=== PATIENT | male | born 1960 | race Caucasian/White ===

== ENCOUNTER 2019-03-17 11:29 | Observation (INO) ==
[2019-03-17] MEDS ORDERED: ALBUT/IPRATROP 3MG/0.5MG NEB 3 ML VIAL NEB STA ×2 (11:41→13:46)
[2019-03-17] MEDS ORDERED: SODIUM CHLORIDE 0.9% 1000ML 1,000 ML IV SCH (11:45)
[2019-03-17 12:29] LABS: Basophils # (auto) 0.01 K/uL (0-0.2); Basophils % (auto) 0.3 %; Eosinophils # (auto) 0.02 K/uL (0-0.5); Eosinophils % (auto) 0.5 %; Hematocrit (blood only) 38.4 % (42-52); Hemoglobin 12.6 g/dL (14.0-18.0); Lymphocytes # (auto) 0.48 K/uL (1.2-3.4); Lymphocytes % (auto) 12.3 %; Mean Corpuscular Hemoglobin 27.5 pg (25-34); Mean Corpuscular Hgb Conc 32.8 g/dL (32-36); Mean Corpuscular Volume 83.7 fL (80-100); Mean Platelet Volume 9.1 fL (7.4-10.4); Monocytes # (auto) 0.28 K/uL (0.11-0.59); Monocytes % (auto) 7.2 %; Neutrophils % (auto) 79.7 %; Platelet Count 144 K/uL (130-400); RDW Coefficient of Variation 14.2 % (11.5-14.5); RDW Standard Deviation 43.7 fL (36.4-46.3); Red Blood Count 4.59 M/uL (4.7-6.1); White Blood Count 3.89 K/uL (4.8-10.8)
[2019-03-17 12:31] LABS: Influenza A virus by PCR Neg for Influ A (Neg); Influenza B virus by PCR Neg for Influ B (Neg)
[2019-03-17 12:37] LABS: INR 1.2 (0.9-1.1); Prothrombin Time 12.1 Seconds (9.0-12.0)
--- NOTE | 2019-03-17 12:42 | XRay Report ---
XR chest 1V portable HISTORY: weakness COMPARISON: None. FINDINGS: The lungs are clear. Cardiac silhouette is top normal in size. No pleural effusions. No pne umothorax. Cervical spinal fusion hardware is noted. IMPRESSION: No acute process. ACT 112: Negative or not required by law. Electronically signed by: Kwesi Patel M.D. 03/17/2019 12:41 PM
[2019-03-17 12:45] LABS: Alanine Aminotransferase 12 U/L (12-78); Albumin Level 3.6 gm/dl (3.4-5.0); Aspartate Aminotransferase 18 U/L (15-37); Blood Urea Nitrogen 10 mg/dl (7-18); Calcium 9.5 mg/dl (8.5-10.1); Carbon Dioxide 24 mmol/L (21-32); Chloride 103 mmol/L (98-107); Creatinine Clr Calc Pharmacy 98.2 ml/min; Est GFR (African American) 80.6; Est GFR (Non-African American) 69.5; Glucose 99 mg/dl (70-99); Magnesium 1.8 mg/dl (1.8-2.4); Potassium 3.8 mmol/L (3.5-5.1); Sodium 135 mmol/L (136-145)
[2019-03-17 12:56] LABS: Alkaline Phosphatase 95 U/L (45-117); Bilirubin,Total 0.8 mg/dl (0.2-1); Globulin 3.8 gm/dl (2.5-4.0); Total Protein 7.4 gm/dl (6.4-8.2); Troponin I < 0.015 ng/ml (0-0.045)
[2019-03-17] MEDS ORDERED: ACETAMINOPHEN 325 MG TAB PO PRN (16:08)
[2019-03-17] MEDS ORDERED: MAGNESIUM HYDROXIDE SUSP 30 ML UDC PO PRN (16:08)
[2019-03-17] MEDS ORDERED: POLYETHYLENE (MIRALAX) 17 GM PACK PO PRN (16:08)
[2019-03-17] MEDS ORDERED: ONDANSETRON INJ 2 MG/ML 2 ML VIAL IV PRN (16:08)
[2019-03-17] MEDS ORDERED: ALUMINUM/MAGNESIUM SUSP 30 ML UDC PO PRN (16:08)
[2019-03-17] MEDS ORDERED: ZOLPIDEM TARTRATE 5 MG TAB PO PRN (16:44)
[2019-03-17] MEDS ORDERED: ACETAMINOPHEN 500 MG TAB PO PRN (16:44)
--- NOTE | 2019-03-17 17:00 | History & Physical Report ---
Date of Service March 17, 2019 Assessment & Plan (1) Weakness: (2) Acute viral bronchitis: This is a 58-year-old male who has significant PMH of HTN, HLD, hypothyroidism, GERD, depression who presents to ED secondary to cough and congestion x4 days. admit to tele xopenex QID Prednisone 40mg po daily x 5 days no clinical indication for antibiotic at this time incentive spirometry tessalon perle for cough suppression (pt states Robitussin was not helping) repeat labs in am (3) Hx of cervical spine surgery: Status post revision C2-T2 laminectomy and fusion on 01/[address] Conway at [facility] Was admitted to [facility] for subacute rehab 01/12-03/13 Home PT had been ordered for patient, but has not yet received Consult PT/OT while inpatient Continue gabapentin, PRN oxycodone (verified dose and frequency with PDMP) (4) Abrasion of head: 2/2 to inability to get up off floor supportive care, daily neosporin (5) HTN (hypertension): Blood pressure stable on low-dose lisinopril Monitor (6) HLD (hyperlipidemia): Continue statin (7) Hypothyroidism: Continue levothyroxine (8) Depression: Continue Zoloft (9) GERD (gastroesophageal reflux disease): Continue PPI, asymptomatic (10) DVT prophylaxis: SQ Lovenox Disposition: admit to telemetry, likely discharge to home when able Follow up: PCP Dr. Mcneil upon discharge Patient was seen and examined in collaboration with Dr. Hernandez, please see addendum History of Present Illness Chief Complaint: Cough and congestion x4 days. Primary Care Provider: Harrison Mcneil MD This is a 58-year-old male who has significant PMH of HTN, HLD, hypothyroidism, GERD, depression who presents to ED secondary to cough and congestion x4 days. Patient woke up this morning and when he went to get out of bed got tangled up in bed sheets and slid to the floor on his bottom. He denies lightheadedness dizziness or passing out. He did not hit his head or lose consciousness. When he got on the floor he was very weak and unable to get up. Upon trying to crawl up he did obtain rug abrasions on his forehead and right arm. He was found by his sister who had to call multiple firefighters to assist him to a chair. Because of his weakness and URI symptoms he was transferred to ED via ALS. Significantly patient has had 2 major cervical surgeries in the past few months. Initially on 12/22/2018 he underwent cervical surgery down at [facility] in [place]. There were no postop complications per patient he was discharged home. His insurance denied him rehab stay. He had home health, but did not feel this helped. Within 1 week duration of being home he had multiple falls requiring him to reinjure his neck. He then presented to [facility] where he was eventually transferred to [facility]. On 01/05/2019 he underwent a C2-T2 laminectomy, decompression and fusion by Dr. Conway. Upon discharge he was transferred to [facility] for subacute rehab. He was in subacute rehab from 01/12 until 03/13/2019. When he first arrived at [facility] he was a full Ronald lift and eventually was able to progress to ambulatory without assist. He has been home for approximately 4 days when on 03/13 he developed upper respiratory-like symptoms including sinus congestion, postnasal drip, productive cough. He complains of clear rhinorrhea and clear sputum. Over the past few days he has felt chilled but had no documented fever. Denies lightheadedness, dizziness, chest pain, palpitations, hemoptysis, nausea, vomiting, abdominal pain, change in his bowel or urinary habits. He did complain of dyspnea on exertion as well as significant wheezing. Significant wheezing is what prompted him to seek ED treatment today. He denies any underlying lung disease, asthma or COPD. "Every time I get a cold it always goes to my chest." Denies any tobacco use or smoking history. While in ED and in route to hospital he received multiple nebulizer treatments as well as IV methylprednisolone which significantly improved his symptoms. Currently he feels much improved since arrival, "but I am wiped out." When he arrived up to the floor he was able to get up from his chair and walk to the bed. He further elicits he has not slept well for the past 2 nights due to his cough. Lab work in ED revealed WBC 3.89, H&H 12.6 and 38.4, platelet count 144, INR 1.2, sodium 135, potassium 3.8, BUN 10, creatinine 1.16, TSH WNL, negative for influenza. Chest x-ray was negative for acute abnormality. Allergies Allergy/AdvReac Type Severity Reaction Status Date / Time egg Allergy Anaphylaxis Unverified 03/17/19 12:02 peanut Allergy Anaphylaxis Unverified 03/17/19 12:02 Home Medications Home Medications Medication Instructions Recorded Confirmed Type acetaminophen [Tylenol Extra 1,000 mg PO Q6H PRN 03/17/19 03/17/19 History Strength] atorvastatin 10 mg PO QAM 03/17/19 03/17/19 History ferrous sulfate 352 mg PO QAM 03/17/19 03/17/19 History folic acid 1 mg PO QAM 03/17/19 03/17/19 History gabapentin 300 mg PO TID 03/17/19 03/17/19 History levothyroxine 50 mcg PO QAM 03/17/19 03/17/19 History lisinopril 2.5 mg PO QAM 03/17/19 03/17/19 History oxycodone 5 mg PO BID PRN 03/17/19 03/17/19 History pantoprazole 20 mg PO QAM 03/17/19 03/17/19 History fcjmingrsovde-MM-ebogxztnely 30 ml PO Q8H PRN 03/17/19 03/17/19 History [Robitussin Cough and Cold CF] sertraline 50 mg PO QAM 03/17/19 03/17/19 History zolpidem [Ambien] 5 mg PO HS PRN 03/17/19 03/17/19 History Past Med/Surg History Medical History (Updated 03/17/19 @ 17:42 by Miesha Caicedo PA-C) Depression GERD (gastroesophageal reflux disease) HLD (hyperlipidemia) HTN (hypertension) Hypothyroidism Surgical History (Updated 03/17/19 @ 17:01 by Miesha Caicedo PA-C) Hx of cervical spine surgery X3 First in 2000 Second 12/22/[address] [facility] Revision 01/05/2019 at [facility] C2-T2 laminectomy and fusion Family History (Updated 03/17/19 @ 17:04 by Miesha Caicedo PA-C) Father Pancreatic cancer Mother Alcohol abuse Tobacco abuse Social History Preferred Language: Kyrgyz Communication Ability: Effective Funeral Home Manager Required: No Beliefs That Will Affect Care: None marital status: Legally Current Living Situation: Alone current occupational status: employed Other Information That Helps Us Care for You: No Feels Safe at Home: Yes Smoking Status: Never smoker Hx Alcohol Use: No Hx Substance Use: No Review of Systems Review of Systems: All systems reviewed & are unremarkable except as noted in HPI & below Physical Exam Physical Exam: Constitutional: WD/WN, tall, obese, male, vitals as above, NAD, sitting up in bed, pleasant, conversing easily Head: Normocephalic, + frontal forehead abrasion Eyes: PERRL, conjunctivae normal, anicteric sclerae ENMT: external ear and nose normal, oropharynx normal Neck: trachea midline, no thyromegaly normal visual inspection Respiratory: normal respiratory effort, lungs clear to auscultation, no wheeze, rales, rhonchi, + prolonged expiratory phase. Normal insp/exp effort, no accessory muscle use Cardiovascular: RRR, no murmur, no edema Vessels: no JVD or carotid bruit Chest: normal inspection of chest Abdomen: normal bowel sounds, soft, nontender, no hepatosplenomegaly Musculoskeletal: no cyanosis or clubbing, extremities motor strength 5/5 , cervical surgical incision well-healed, no surrounding erythema or warmth Skin: no rashes, warm and dry normal turgor, forehead abrasion, abrasion to right upper tricep area Neurologic: PERRL, EOMI, accommodation nl, no face palsy, no dysarthria CN's II-XI intact bilaterally and moves all extremities Psychiatric: A+Ox3, euthymic affect Lymphatic: no cervical or axillary lymphadenopathy : deferred Results & Data Vital Signs (Past 12 Hours) Vital Signs Temp Pulse Pulse Pulse Pulse Resp Resp 03/17/19 15:07 109 H 20 03/17/19 14:08 108 H 24 03/17/19 13:43 90 26 H 03/17/19 13:11 109 H 25 H 03/17/19 12:13 106 H 24 03/17/19 11:49 37.1 C 107 H 24 03/17/19 11:41 BP BP Pulse Ox Pulse Ox 03/17/19 15:07 116/73 94 03/17/19 14:08 93 03/17/19 13:43 84 L 03/17/19 13:11 126/86 94 03/17/19 12:13 95 03/17/19 11:49 136/85 94 03/17/19 11:41 94 Laboratory Results Short CBC 03/17/19 Range/Units 11:45 WBC 3.89 L (4.8-10.8) K/uL Hgb 12.6 L (14.0-18.0) g/dL Hct 38.4 L (42-52) % Plt Count 144 (130-400) K/uL BMP 03/17/19 11:45 Sodium 135 L Potassium 3.8 Chloride 103 Carbon Dioxide 24 BUN 10 Creatinine 1.16 Glucose 99 Calcium 9.5 Cardiac Enzymes 03/17/19 Range/Units 11:45 Troponin I < 0.015 (0-0.045) ng/ml Liver Function 03/17/19 Range/Units 11:45 Total Bilirubin 0.8 (0.2-1) mg/dl AST 18 (15-37) U/L ALT 12 (12-78) U/L Alkaline Phosphatase 95 (45-117) U/L Albumin 3.6 (3.4-5.0) gm/dl Diagnostic Findings CXR: FINDINGS: The lungs are clear. Cardiac silhouette is top normal in size. No pleural effusions. No pneumothorax. Cervical spinal fusion hardware is noted. IMPRESSION: No acute process. Medications Administered Discontinued Medications Albuterol (Duoneb) 6 ml NEB NOW STA Stop: 03/17/19 11:42 Last Admin: 03/17/19 12:11 Dose: 6 ml Documented by: [id number] Albuterol (Duoneb) 6 ml NEB NOW STA Stop: 03/17/19 13:47 Last Admin: 03/17/19 14:06 Dose: 6 ml Documented by: [id number] Sodium Chloride (Nss 1000ml) 1,000 mls @ 999 mls/hr IV .Q1H1M RACHELLE Stop: 03/17/19 12:45 Last Infusion: 03/17/19 13:58 Dose: 0 mls/hr Documented by: [id number] Admin: 03/17/19 12:04 Dose: 999 mls/hr Documented by: [id number] Methylprednisolone (Solumedrol) 40 mg IV NOW STA Stop: 03/17/19 11:57 Last Admin: 03/17/19 12:04 Dose: 40 mg Documented by: [id number] ECG Rhythm: sinus tachycardia Findings: + nonspecific-ST abn, + RBBB and + prolonged QT (508ms) Code Status & VTE Plan Code Status Full Code VTE Prophylaxis Plan VTE Prophylaxis will be ordered: Yes Supervising Physician Co-Signing Physician Notes HISTORY: Record reviewed. Patient interviewed and examined. Care coordinated with Miesha Caicedo PA-C. Please refer to her documentation for complete history. Briefly, 58-year-old male status post recent cervical decompression/fusion. Recently discharged home from skilled care. Developed cough and malaise over past 24 hours. Slid out of bed this morning and unable to get up off the floor. Suffered some abrasions from the fall, but no other apparent injuries. EXAM: General- no distress Head- abrasions forehead and face Lungs- diffuse wheezing; no respiratory distress Cardiovascular- RRR; no murmur; no gallop; no JVD; no pretibial edema Abdomen- + bowel sounds, soft, nontender Extremities- no cyanosis; no calf tenderness Neuro- alert, oriented Skin- warm & dry DATA: Hemoglobin 12.6, white count 3890, platelet count 144,000. Sodium 135, potassium 3.8, chloride 103, CO2 24, BUN 10, creatinine 1.16, glucose 99, calcium 9.5, magnesium 1.8. Troponin less than 0.015. Urinalysis showed 1+ ketones, negative nitrite, negative leukocyte esterase, 1-5 WBCs, 5-10 RBCs, 5-10 epithelial cells, no bacteria. Nasopharyngeal swab for influenza A/B negative. Other lab studies as noted. Chest x-ray did not show any infiltrates, effusions, CHF. EKG performed at 1202 reviewed and demonstrated sinus tachycardia at 103/minute, inverted T waves in lead III, incomplete right bundle branch block. ASSESSMENT AND PLAN: Fall/weakness associated with respiratory tract infection. No infiltrates on chest x-ray. Nasopharyngeal swab for influenza negative. However, will treat empirically with oseltamivir given flu season, symptoms, and possibility of a false negative assay. Status post recent cervical decompression/fusion as detailed in GARY Caicedo's note. Patient was discharged home after a stay at [facility] for rehabilitation. Will ask for new PT/OT evaluations in light of his fall. Please refer to GARY Caicedo's documentation for discussion of other issues.
--- NOTE | 2019-03-17 17:27 | Emergency Department Note ---
Entered by Coco Tan acting as a scribe for History of Present Illness General Chief complaint: Fall Time Seen by Provider: 03/17/19 11:34 Source: patient History of Present Illness Onset (ago): minute(s) (prior to arrival) Location: head and neck Pain Consistency: + other (episode) Quality: + other (fall) Associated symptoms: + denies other symptoms (hitting his head, head pain, neck pain, arm pain, abdominal pain, hip pain, leg pain), + cough, + weakness and + other (winded, abrasions to head and elbows, neck stiffness); no chest pain The patient is a 58 year old male w/ PMHx of cervical spine surgery who presents to the ED w/ CC of an episode of a fall occurring prior to arrival. 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 He states that he went to rehab after and things were going well. He states that when he finally was sent home, that first day he went to a [place] celebration with his family, but everyone was sick. He reports that he ended up getting sick and since then has been very weak. He reports that it seems to be getting worse. He states that he has a clear productive cough and feels winded easily. He notes that he has been unable to lie flat because of it. The patient states that today he went to sit on the edge of his bed, but he was out too far and his sheets were slippery. He reports that he ended up falling straight to his butt. He states that he then tried to crawl to the phone, but ended up having several abrasion on his head and arms from the crawling. The patient notes that his neck is stiff, but reports that he just had his collar removed. The patient denies hitting his head, head pain, neck pain, arm pain, chest pain, abdominal pain, hip pain, leg pain, and getting his flu shot. Home Medications Home Medications Medication Instructions Recorded Confirmed Type acetaminophen [Tylenol Extra 1,000 mg PO Q6H PRN 03/17/19 03/17/19 History Strength] atorvastatin 10 mg PO QAM 03/17/19 03/17/19 History ferrous sulfate 352 mg PO QAM 03/17/19 03/17/19 History folic acid 1 mg PO QAM 03/17/19 03/17/19 History gabapentin 300 mg PO TID 03/17/19 03/17/19 History levothyroxine 50 mcg PO QAM 03/17/19 03/17/19 History lisinopril 2.5 mg PO QAM 03/17/19 03/17/19 History oxycodone 5 mg PO BID PRN 03/17/19 03/17/19 History pantoprazole 20 mg PO QAM 03/17/19 03/17/19 History grhiwrbykytyb-PW-jrrigvoupxg 30 ml PO Q8H PRN 03/17/19 03/17/19 History [Robitussin Cough and Cold CF] sertraline 50 mg PO QAM 03/17/19 03/17/19 History zolpidem [Ambien] 5 mg PO HS PRN 03/17/19 03/17/19 History Allergies Allergy/AdvReac Type Severity Reaction Status Date / Time egg Allergy Anaphylaxis Unverified 03/17/19 12:02 peanut Allergy Anaphylaxis Unverified 03/17/19 12:02 Past Med/Surg History Medical History (Updated 03/17/19 @ 17:13 by Miesha Caicedo PA-C) Depression GERD (gastroesophageal reflux disease) HLD (hyperlipidemia) HTN (hypertension) Hypothyroidism Surgical History (Updated 03/17/19 @ 17:01 by Miesha Caicedo PA-C) Hx of cervical spine surgery X3 First in 2000 Second 12/22/2018 at [facility] Revision 01/05/2019 at [facility] C2-T2 laminectomy and fusion Family History (Updated 03/17/19 @ 17:04 by Miesha Caicedo PA-C) Father Pancreatic cancer Mother Alcohol abuse Tobacco abuse Social History Preferred Language: Faroese Communication Ability: Effective 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 and A total of 10 systems reviewed and were otherwise negative Physical Exam Vital Signs Vital Signs - 24 hr 03/17/19 11:41 03/17/19 11:49 03/17/19 12:13 Temperature 37.1 C Temperature Source Oral Pulse Rate 107 H Pulse Rate [Apical] 106 H Pulse Rate [Exercises] Pulse Rate [Finger] Pulse Rhythm [Apical] Pulse Strength [Apical] Respiratory Rate 24 24 Respiratory Rate [Exercises] Respiratory Effort / Characteristics Non-Labored Spontaneous Short of Breath Respiratory Depth Normal Respiratory Pattern Regular Blood Pressure 136/85 Blood Pressure [Right Arm] Blood Pressure Mean 102 Blood Pressure Mean [Right Arm] Blood Pressure Position [Right Arm] Pulse Oximetry 94 94 95 Pulse Oximetry [Exercises] Oxygen Delivery Method Room Air Room Air Room Air Sepsis Recent Fever Within 48 Hours Yes Sepsis New/Unexplained Change in Mental Status No Sepsis Action Taken by Nursing No Action Required 03/17/19 13:11 03/17/19 13:43 03/17/19 14:08 Temperature Temperature Source Pulse Rate Pulse Rate [Apical] 109 H Pulse Rate [Exercises] 90 Pulse Rate [Finger] 108 H Pulse Rhythm [Apical] Regular Pulse Strength [Apical] Normal Respiratory Rate 25 H 24 Respiratory Rate [Exercises] 26 H Respiratory Effort / Characteristics Non-Labored Non-Labored Spontaneous Respiratory Depth Normal Respiratory Pattern Regular Blood Pressure Blood Pressure [Right Arm] 126/86 Blood Pressure Mean Blood Pressure Mean [Right Arm] 99 Blood Pressure Position [Right Arm] Lying Pulse Oximetry 94 93 Pulse Oximetry [Exercises] 84 L Oxygen Delivery Method Room Air Room Air Room Air Sepsis Recent Fever Within 48 Hours Sepsis New/Unexplained Change in Mental Status Sepsis Action Taken by Nursing GENERAL: Non-toxic, abrasion to top of head HEAD: Abrasion to the top of the head. EYE EXAM: Normal conjunctiva. PERRL, no anisocoria and EOM's grossly intact w/o pain. OROPHARYNX: Moist mucous membranes. Grossly normal dentition. NECK: Supple, no nuchal rigidity, no adenopathy, non-tender. No signs of meningismus. Well healed surgical incision over the cervical and upper thoracic spine. LUNGS: Diffuse wheezing. Normal chest wall mechanics. HEART: Tachycardic and regular, no MRG. ABDOMEN: Abdomen soft, non-tender, normo-active bowel sounds, no masses, no rebound or guarding. BACK: No CVA TTP. SKIN: No rashes and no bruising. UPPER EXTREMITIES: Upper extremities are grossly normal. Abrasion over the lateral upper portion of the right arm. Compartment soft. No TTP to bilateral upper extremities. LOWER EXTREMITIES: No pitting edema. No calf pain. No TTP to bilateral lower extremities. NEURO EXAM: A&O x3, cranial nerves II-XII grossly intact, normal speech, moves all 4 extremities on command w/o issue. Course Course 1135: The patient was evaluated in room C10. A complete history and physical exam was performed. 1137: Orders were placed and the patient was started on a monitoring and evaluation advisor at this time. 1325: I reevaluated the patient and his lungs sound slightly better, but he is still wheezy. We are going to do an ambulatory trial. 1346: Nursing called and said that when he walked, he dropped to 84%. 1358: I reevaluated the patient and updated him and his sister on his test results. I discussed the treatment plan with them. They verbally agree and understand. 1415: I discussed the patient's case with Dr. Mary Jo Alcala Hospitalist. He will evaluate the patient for further management. Administered Medications Discontinued Medications Albuterol (Duoneb) 6 ml NEB NOW STA Stop: 03/17/19 11:42 Last Admin: 03/17/19 12:11 Dose: 6 ml Documented by: [id number] Albuterol (Duoneb) 6 ml NEB NOW STA Stop: 03/17/19 13:47 Last Admin: 03/17/19 14:06 Dose: 6 ml Documented by: [id number] Sodium Chloride (Nss 1000ml) 1,000 mls @ 999 mls/hr IV .Q1H1M RACHELLE Stop: 03/17/19 12:45 Last Infusion: 03/17/19 13:58 Dose: 0 mls/hr Documented by: [id number] Admin: 03/17/19 12:04 Dose: 999 mls/hr Documented by: [id number] Methylprednisolone (Solumedrol) 40 mg IV NOW STA Stop: 03/17/19 11:57 Last Admin: 03/17/19 12:04 Dose: 40 mg Documented by: [id number] Medical Decision Making Differential Diagnosis Differential Diagnosis includes but is not limited to dehydration, stroke, anemia, hypoglycemia, hyponatremia, hypernatremia, urinary tract infection, pneumonia, bronchitis, sepsis, gastroenteritis, additional abdominal pathology, metabolic abnormalities and infections. Medical Records Attestation: I reviewed the patient's medical records. Home Medications Current Medication List: was personally reviewed by me Laboratory Data Attestation: I reviewed the patient's lab results. Result diagrams: 03/17/19 11:45 03/17/19 11:45 Lab Results 03/17/19 03/17/19 03/17/19 Range/Units 11:45 11:45 11:45 WBC 3.89 L (4.8-10.8) K/uL RBC 4.59 L (4.7-6.1) M/uL Hgb 12.6 L (14.0-18.0) g/dL Hct 38.4 L (42-52) % MCV 83.7 (80-100) fL MCH 27.5 (25-34) pg MCHC 32.8 (32-36) g/dL RDW Std Deviation 43.7 (36.4-46.3) fL RDW Coeff of Kamaljit 14.2 (11.5-14.5) % Plt Count 144 (130-400) K/uL MPV 9.1 (7.4-10.4) fL Immature Gran % (Auto) 0.0 % Neut % (Auto) 79.7 % Lymph % (Auto) 12.3 % Brown % (Auto) 7.2 % Eos % (Auto) 0.5 % Baso % (Auto) 0.3 % Immature Gran # (Auto) 0.00 (0.00-0.02) K/uL Neut # (Auto) 3.10 (1.4-6.5) K/uL Lymph # (Auto) 0.48 L (1.2-3.4) K/uL Brown # (Auto) 0.28 (0.11-0.59) K/uL Eos # (Auto) 0.02 (0-0.5) K/uL Baso # (Auto) 0.01 (0-0.2) K/uL PT 12.1 H (9.0-12.0) Seconds INR 1.2 H (0.9-1.1) Sodium 135 L (136-145) mmol/L Potassium 3.8 (3.5-5.1) mmol/L Chloride 103 (98-107) mmol/L Carbon Dioxide 24 (21-32) mmol/L Anion Gap 8.0 (3-11) BUN 10 (7-18) mg/dl Creatinine 1.16 (0.6-1.4) mg/dl Est Cr Clr Drug Dosing 98.2 ml/min Est GFR ( Amer) 80.6 Est GFR (Non-Af Amer) 69.5 BUN/Creatinine Ratio 9.0 L (10-20) Glucose 99 (70-99) mg/dl Calcium 9.5 (8.5-10.1) mg/dl Magnesium 1.8 (1.8-2.4) mg/dl Total Bilirubin 0.8 (0.2-1) mg/dl AST 18 (15-37) U/L ALT 12 (12-78) U/L Alkaline Phosphatase 95 (45-117) U/L Troponin I < 0.015 (0-0.045) ng/ml Total Protein 7.4 (6.4-8.2) gm/dl Albumin 3.6 (3.4-5.0) gm/dl Globulin 3.8 (2.5-4.0) gm/dl Albumin/Globulin Ratio 1.0 (0.9-2) TSH 1.860 (0.300-4.500) uIu/ml Influenza Type A (PCR) (Neg) Influenza Type B (PCR) (Neg) 03/17/19 Range/Units 11:45 WBC (4.8-10.8) K/uL RBC (4.7-6.1) M/uL Hgb (14.0-18.0) g/dL Hct (42-52) % MCV (80-100) fL MCH (25-34) pg MCHC (32-36) g/dL RDW Std Deviation (36.4-46.3) fL RDW Coeff of Kamaljit (11.5-14.5) % Plt Count (130-400) K/uL MPV (7.4-10.4) fL Immature Gran % (Auto) % Neut % (Auto) % Lymph % (Auto) % Brown % (Auto) % Eos % (Auto) % Baso % (Auto) % Immature Gran # (Auto) (0.00-0.02) K/uL Neut # (Auto) (1.4-6.5) K/uL Lymph # (Auto) (1.2-3.4) K/uL Brown # (Auto) (0.11-0.59) K/uL Eos # (Auto) (0-0.5) K/uL Baso # (Auto) (0-0.2) K/uL PT (9.0-12.0) Seconds INR (0.9-1.1) Sodium (136-145) mmol/L Potassium (3.5-5.1) mmol/L Chloride (98-107) mmol/L Carbon Dioxide (21-32) mmol/L Anion Gap (3-11) BUN (7-18) mg/dl Creatinine (0.6-1.4) mg/dl Est Cr Clr Drug Dosing ml/min Est GFR ( Amer) Est GFR (Non-Af Amer) BUN/Creatinine Ratio (10-20) Glucose (70-99) mg/dl Calcium (8.5-10.1) mg/dl Magnesium (1.8-2.4) mg/dl Total Bilirubin (0.2-1) mg/dl AST (15-37) U/L ALT (12-78) U/L Alkaline Phosphatase (45-117) U/L Troponin I (0-0.045) ng/ml Total Protein (6.4-8.2) gm/dl Albumin (3.4-5.0) gm/dl Globulin (2.5-4.0) gm/dl Albumin/Globulin Ratio (0.9-2) TSH (0.300-4.500) uIu/ml Influenza Type A (PCR) Neg for Influ A (Neg) Influenza Type B (PCR) Neg for Influ B (Neg) Imaging Data Radiologist's Impression: Radiology results as stated below per my review and the radiologist's interpretation: XR chest 1V portable HISTORY: weakness COMPARISON: None. FINDINGS: The lungs are clear. Cardiac silhouette is top normal in size. No pleural effusions. No pneumothorax. Cervical spinal fusion hardware is noted. IMPRESSION: No acute process. ACT 112: Negative or not required by law. Electronically signed by: Kwesi Patel M.D. 03/17/2019 12:41 PM ECG Data Attestation: I personally reviewed and interpreted this ECG as follows: Indication: + tachycardia Rate (beats per minute): 103 Rhythm: + sinus tachycardia ECG Intervals/blocks: + Normal QRS and + Normal NH ECG [place]: + Normal ECG ST segments: + ST depression (V2 and V3) ECG Findings: + Other (prolonged QT-c) Comparison ECG Date: no prior available Blood Pressure Blood Pressure Findings: Elevated blood pressure Blood Pressure Disposition: Referred to patients primary care provider MDM Narrative The patient is a 58 year old male w/ PMHx of cervical spine surgery who presents to the ED w/ CC of an episode of a fall occurring prior to arrival. Patient was seen and evaluated the bedside. The patient does present with concern for weakness and a fall. The patient states he just slipped down from the side of the bed. Did not strike his head. The patient is a prior history of cervical stenosis status post procedure approximately 8 weeks ago. This com proctor [facility]. No neck pain from the fall and the patient surgical incisional site is well-healed. Patient was at [facility] for an extended period of time and was just discharged on Tuesday. The patient does have some coarse breath sounds throughout. Non-smoker. Patient did a blood work completed along with a chest x-ray. Chest x-ray is unremarkable. I did have the patient ambulate and the patient was hypoxic. Patient was given additional DuoNeb treatments as he may have some form of reactive airway disease and does seem more viral nature. I did consider the possibility of PE but the patient does not have any lower extremity swelling or calf pain the patient does relate a more infectious etiology with coarse breath sounds throughout. I did discuss this with the on-call hospitalist agreed to further evaluate treat the patient. Patient was given strict follow-up, discharge, and return precautions. All questions were answered. Patient was deemed suitable for outpatient follow-up at this time. Patient agreed with the plan of care and was safely discharged home. Impression & Plan Hypoxia, Bronchitis, RAD (reactive airway disease), Weakness, Leukopenia Discharge Plan Visit Data *Final* Discharge Date/Time: 03/17/19 15:18 Chief Complaint: Fall ED Provider: Earl Chang Discharge Problem: Hypoxia, Bronchitis, RAD (reactive airway disease), Weakness, Leukopenia Patient Disposition: Admitted As Inpatient Discharge Instructions Interventions: ED Discharge Assessment Last Done: 03/17/19 15:18 Discharge Problem: RAD (reactive airway disease) Qualifiers: Asthma severity: unspecified severity Asthma persistence: unspecified Asthma complication type: uncomplicated Qualified Code(s): J45.909 - Unspecified asthma, uncomplicated Leukopenia Qualifiers: Leukopenia type: unspecified Qualified Code(s): D72.819 - Decreased white blood cell count, unspecified The scribe's documentation has been prepared under my direction and personally reviewed by me in its entirety. I confirm that the note above accurately reflects all work, treatment, procedures, and medical decision making performed by me.
[2019-03-17 17:48] LABS: Appearance Urine Clear (Clear); Bacteria Urine Automated Negative (Negative); Bilirubin Urine Negative (Negative); Blood Urine Negative (Negative); Color Urine Dark Yellow; Glucose Urine UA Negative (Negative); Ketones Urine 1+ (Negative); Leukocyte Esterase Urine Negative (Negative); Nitrite Urine Negative (Negative); Protein Urine Trace (Negative); Specific Gravity Urine 1.024 (1.000-1.030); Urobilinogen Urine Negative (Negative)
[2019-03-17] MEDS: LEVALBUTEROL HCL 0.63 MG/3 ML NEB NEB SCH (19:28)
[2019-03-17] MEDS: GUAIFENESIN/DEXTROM SYRUP 100MG/10MG 5ML UDC PO PRN (20:02)
[2019-03-17] MEDS: NEOMYCIN/POLYMYX/BACITR OINT 15 GM TUBE EXT SCH (20:02)
[2019-03-17] MEDS: OXYCODONE HCL IR 5 MG TAB (IMMEDIATE RELEASE) PO PRN (20:51)
[2019-03-17] MEDS: OSELTAMIVIR PHOSPHATE 75 MG CAP PO SCH (20:52)
[2019-03-17] MEDS: GABAPENTIN 300 MG CAP PO SCH (20:52)
[2019-03-18] MEDS: LEVALBUTEROL HCL 0.63 MG/3 ML NEB NEB SCH ×4 (01:29→19:05)
[2019-03-18] MEDS: GUAIFENESIN/DEXTROM SYRUP 100MG/10MG 5ML UDC PO PRN ×3 (04:21→19:07)
--- NOTE | 2019-03-18 06:00 | Electrocardiogram Report ---
Test Reason : Blood Pressure : / mmHG Vent. Rate : 103 BPM Atrial Rate : 103 BPM P-R Int : 144 ms QRS Dur : 098 ms QT Int : 388 ms P-R-T Axes : 060 043 012 degrees QTc Int : 508 ms Sinus tachycardia Incomplete right bundle branch block Nonspecific ST and T wave abnormality Prolonged QT Abnormal ECG No previous ECGs available Confirmed by Abhinav Zamudio ([id number]) on 03/18/2019 5:59:48 AM Referred By: REFERRED SELF Confirmed By:Abhinav Zamudio
[2019-03-18 06:30] LABS: Hemoglobin 11.3 g/dL (14.0-18.0); Mean Corpuscular Hemoglobin 27.3 pg (25-34); Mean Corpuscular Hgb Conc 33.2 g/dL (32-36); Mean Corpuscular Volume 82.1 fL (80-100); Platelet Count 131 K/uL (130-400); RDW Coefficient of Variation 14.3 % (11.5-14.5); Red Blood Count 4.14 M/uL (4.7-6.1); White Blood Count 3.34 K/uL (4.8-10.8)
[2019-03-18 07:10] LABS: BUN Creatinine Ratio 14.1 (10-20); Calcium 9.3 mg/dl (8.5-10.1); Est GFR (African American) 106.6; Potassium 3.8 mmol/L (3.5-5.1)
[2019-03-18] MEDS: GABAPENTIN 300 MG CAP PO SCH ×3 (08:25→19:35)
[2019-03-18] MEDS: LEVOTHYROXINE SODIUM 50 MCG TABLET PO SCH (08:25)
[2019-03-18] MEDS: OSELTAMIVIR PHOSPHATE 75 MG CAP PO SCH ×2 (08:27→19:35)
[2019-03-18] MEDS: FERROUS SULFATE 325 MG TAB PO SCH (08:29)
[2019-03-18] MEDS: predniSONE 20 MG TAB PO SCH (08:29)
[2019-03-18] MEDS: ENOXAPARIN INJ 40 MG/0.4 ML SYR SQ SCH (08:30)
[2019-03-18] MEDS: FOLIC ACID 1 MG TAB PO SCH (08:30)
[2019-03-18] MEDS: ATORVASTATIN 10 MG TAB PO SCH (08:30)
[2019-03-18] MEDS: PANTOprazole 40 MG TAB PO SCH (08:30)
[2019-03-18] MEDS: NEOMYCIN/POLYMYX/BACITR OINT 15 GM TUBE EXT SCH (08:31)
[2019-03-18] MEDS: SERTRALINE HCL 50 MG TABLET PO SCH (08:32)
--- NOTE | 2019-03-18 14:20 | Hospitalist Progress Note ---
Date of Service March 18, 2019 Assessment & Plan (1) Weakness: Likely secondary to ongoing viral illness (2) Acute viral bronchitis: Tamiflu was given and will be continued for 5 days even though flu test was negative This is a 58-year-old male who has significant PMH of HTN, HLD, hypothyroidism, GERD, depression who presents to ED secondary to cough and congestion x4 days. xopenex QID Prednisone 40mg po daily x 5 days no clinical indication for antibiotic at this time incentive spirometry Tessalon perle for cough suppression (pt states Robitussin was not helping) Clinically a lot better today and has had physical therapy No more desaturation and shortness of breath is much improved Likely be discharged tomorrow following 2 steps O2 saturation test and physical therapy (3) Hx of cervical spine surgery: Status post revision C2-T2 laminectomy and fusion on 01/[address] Conway at [facility] Was admitted to [facility] for subacute rehab 01/12-03/13 Home PT had been ordered for patient, but has not yet received Consult PT/OT while inpatient Continue gabapentin, PRN oxycodone (verified dose and frequency with PDMP) No acute pain (4) Abrasion of head: 2/2 to inability to get up off floor supportive care, daily neosporin (5) HTN (hypertension): Blood pressure stable on low-dose lisinopril Monitor (6) HLD (hyperlipidemia): Continue statin (7) Hypothyroidism: Continue levothyroxine (8) Depression: Continue Zoloft (9) GERD (gastroesophageal reflux disease): Continue PPI, asymptomatic (10) DVT prophylaxis: SQ Lovenox Disposition: admit to telemetry, likely discharge to home when able Follow up: PCP Dr. Mcneil upon discharge Subjective 03/18/2019 The patient was seen and examined in medical floor He was admitted with upper respiratory infection likely secondary to virus with a history of fall He has been complaining of URI symptoms since 13 March He was noted to have significant desaturation with ambulation in the emergency room associated with wheezing and shortness of breath He is getting empiric treatment with Tamiflu and has been getting better Review of Systems Review of Systems: All systems reviewed and are unremarkable except as noted below Respiratory: + cough, + dyspnea on exertion and + wheezing Physical Exam Physical Exam: Sitting on a chair without any acute symptoms Constitutional: well developed, well nourished and + obese Eyes: PERRL, conjunctivae normal, anicteric sclerae ENMT: external ear and nose normal, oropharynx normal Neck: trachea midline, no thyromegaly Respiratory: + respiratory distress (Area minimal) Auscultation: + wheezes (Minimal allover); no crackles Cardiovascular: Rate/Rhythm: regular rate and regular rhythm Heart Sounds: no murmur Gastrointestinal (Abdomen): Inspection/Auscultation: abdomen normal to inspection and normal bowel sounds Musculoskeletal: No acute arthritis Skin: Small abrasion at the 4 8 seems to be stable Neurologic: moves all extremities; no focal motor deficits Lymphatic: no cervical or axillary lymphadenopathy Results & Data Vital Signs (Past 12 Hours) Vital Signs Temp Pulse Pulse Resp BP Pulse Ox 03/18/19 13:19 73 14 95 03/18/19 11:55 36.6 C 70 18 144/91 H 91 03/18/19 07:43 81 03/18/19 07:31 76 16 96 03/18/19 07:19 36.8 C 66 18 135/88 94 03/18/19 04:00 90 Laboratory Results Short CBC 03/18/19 Range/Units 06:06 WBC 3.34 L (4.8-10.8) K/uL Hgb 11.3 L (14.0-18.0) g/dL Hct 34.0 L (42-52) % Plt Count 131 (130-400) K/uL BMP 03/18/19 06:06 Sodium 135 L Potassium 3.8 Chloride 106 Carbon Dioxide 23 BUN 13 Creatinine 0.92 Glucose 111 H Calcium 9.3 Urine 03/17/19 Range/Units 17:28 Urine Color Dark Yellow Urine Appearance Clear (Clear) Urine pH 6.0 (4.5-7.5) Ur Specific [place] 1.024 (1.000-1.030) Urine Protein Trace H (Negative) Urine Glucose (UA) Negative (Negative) Medications Administered Current Inpatient Medications Acetaminophen (Tylenol) 650 mg PO Q4H PRN PRN Reason: Pain or Fever Stop: 04/16/19 16:07 Acetaminophen (Tylenol) 1,000 mg PO Q6H PRN PRN Reason: Pain Stop: 04/16/19 16:43 Al Hydrox/Mg Hydrox/Simethicone (Maalox) 15 ml PO Q4H PRN PRN Reason: Dyspepsia Stop: 04/16/19 16:07 Atorvastatin Calcium (Lipitor) [facility] Stop: 04/17/19 08:59 Last Admin: 03/18/19 08:30 Dose: 10 mg Documented by: Enoxaparin Sodium (Lovenox) 40 [facility] SQ [facility] Stop: 04/17/19 08:59 Last Admin: 03/18/19 08:30 Dose: 40 mg Documented by: Ferrous Sulfate (Feosol) 325 [facility] Stop: 04/17/19 08:59 Last Admin: 03/18/19 08:29 Dose: 325 mg Documented by: Folic Acid (Folvite) 1 [facility] Stop: 04/17/19 08:59 Last Admin: 03/18/19 08:30 Dose: 1 mg Documented by: Gabapentin (Neurontin) 300 mg PO TID [facility] Stop: 04/16/19 20:59 Last Admin: 03/18/19 08:25 Dose: 300 mg Documented by: Guaifenesin/Dextromethorphan (Robitussin Cough-Chest Dm) 5 ml PO Q6H PRN PRN Reason: Cough Stop: 04/16/19 16:52 Last Admin: 03/18/19 13:01 Dose: 5 ml Documented by: Levalbuterol HCl (Xopenex 0.63 Mg/3 Ml Neb) 0.63 mg NEB Q6R [facility] Stop: 04/16/19 18:59 Last Admin: 03/18/19 13:19 Dose: 0.63 mg Documented by: Levothyroxine Sodium (Synthroid) 50 mcg PO DAILYBB [facility] Stop: 04/17/19 06:29 Last Admin: 03/18/19 08:25 Dose: 50 mcg Documented by: Lisinopril (Zestril) 2.5 mg PO QAM [facility] Stop: 04/17/19 08:59 Last Admin: 03/18/19 08:29 Dose: 2.5 mg Documented by: Magnesium Hydroxide (Milk Of Magnesia) 30 ml PO Q12H PRN PRN Reason: Constipation Stop: 04/16/19 16:07 Neomycin/Polymyxin/Bacitracin (Neosporin Oint) 1 appln EXT DAILY [facility] Stop: 04/16/19 17:14 Last Admin: 03/18/19 08:31 Dose: 1 appln Documented by: Oseltamivir Phosphate (Tamiflu) 75 mg PO BID [facility]; Protocol Stop: 03/22/19 20:59 Last Admin: 03/18/19 08:27 Dose: 75 mg Documented by: Oxycodone HCl (Roxicodone Immediate Rel) 5 mg PO BID PRN PRN Reason: Pain Stop: 03/31/19 17:16 Last Admin: 03/17/19 20:51 Dose: 5 mg Documented by: Pantoprazole Sodium (Protonix) [facility] Stop: 04/17/19 08:59 Last Admin: 03/18/19 08:30 Dose: 40 mg Documented by: Polyethylene Glycol (Miralax Powder Packet) 17 gm PO DAILY PRN PRN Reason: Constipation Stop: 04/16/19 16:07 Prednisone (Prednisone) 40 mg PO DAILY [facility] Stop: 04/17/19 08:59 Last Admin: 03/18/19 08:29 Dose: 40 mg Documented by: Sertraline HCl (Zoloft) 50 mg PO QAM [facility] Stop: 04/17/19 08:59 Last Admin: 03/18/19 08:32 Dose: 50 mg Documented by: Zolpidem Tartrate (Ambien) 5 mg PO HS PRN PRN Reason: Insomnia Stop: 04/16/19 16:43
[2019-03-18] MEDS: OXYCODONE HCL IR 5 MG TAB (IMMEDIATE RELEASE) PO PRN (19:32)
[2019-03-19] MEDS: LEVALBUTEROL HCL 0.63 MG/3 ML NEB NEB SCH ×4 (00:45→19:40)
[2019-03-19] MEDS: LEVOTHYROXINE SODIUM 50 MCG TABLET PO SCH ×2 (06:07→07:55)
[2019-03-19 07:17] LABS: Eosinophils # (auto) 0.04 K/uL (0-0.5); Eosinophils % (auto) 0.9 %; Hematocrit (blood only) 40.2 % (42-52); Hemoglobin 13.1 g/dL (14.0-18.0); Lymphocytes # (auto) 1.43 K/uL (1.2-3.4); Lymphocytes % (auto) 32.8 %; Mean Corpuscular Hemoglobin 27.3 pg (25-34); Mean Corpuscular Hgb Conc 32.6 g/dL (32-36); Mean Corpuscular Volume 83.9 fL (80-100); Mean Platelet Volume 8.9 fL (7.4-10.4); Monocytes # (auto) 0.32 K/uL (0.11-0.59); Monocytes % (auto) 7.3 %; Neutrophils # (auto) 2.57 K/uL (1.4-6.5); Platelet Count 147 K/uL (130-400); RDW Coefficient of Variation 14.2 % (11.5-14.5); RDW Standard Deviation 43.9 fL (36.4-46.3); Red Blood Count 4.79 M/uL (4.7-6.1); White Blood Count 4.36 K/uL (4.8-10.8)
[2019-03-19 07:50] LABS: BUN Creatinine Ratio 17.5 (10-20); Calcium 9.1 mg/dl (8.5-10.1); Creatinine Clr Calc Pharmacy 91.5 ml/min; Est GFR (African American) 75.8; Est GFR (Non-African American) 65.4; Potassium 3.3 mmol/L (3.5-5.1)
[2019-03-19] MEDS: NEOMYCIN/POLYMYX/BACITR OINT 15 GM TUBE EXT SCH (07:54)
[2019-03-19] MEDS: GUAIFENESIN/DEXTROM SYRUP 100MG/10MG 5ML UDC PO PRN (07:54)
[2019-03-19] MEDS: OSELTAMIVIR PHOSPHATE 75 MG CAP PO SCH ×2 (07:54→20:56)
[2019-03-19] MEDS: ATORVASTATIN 10 MG TAB PO SCH (07:54)
[2019-03-19] MEDS: predniSONE 20 MG TAB PO SCH (07:55)
[2019-03-19] MEDS: GABAPENTIN 300 MG CAP PO SCH ×3 (07:55→20:57)
[2019-03-19] MEDS: PANTOprazole 40 MG TAB PO SCH (07:56)
[2019-03-19] MEDS: ENOXAPARIN INJ 40 MG/0.4 ML SYR SQ SCH (07:56)
[2019-03-19] MEDS: FOLIC ACID 1 MG TAB PO SCH (07:56)
[2019-03-19] MEDS: SERTRALINE HCL 50 MG TABLET PO SCH (07:56)
[2019-03-19] MEDS: FERROUS SULFATE 325 MG TAB PO SCH (07:56)
--- NOTE | 2019-03-19 08:22 | XRay Report ---
XR chest 2V PA/lateral CLINICAL HISTORY: 58 years-old Male presenting with bronchitis,R/O Pneumonia. TECHNIQUE: PA and lateral views of the chest were obtained. COMPARISON: 03/17/2019. FINDINGS: Cardiac silhouette borderline enlarged. No focal opacity. No significant pleural effusion or pneumoth orax. Degenerative changes of the thoracic spine. Anterior and posterior cervical fusion. Upper abdom en normal. IMPRESSION: 1. No acute cardiopulmonary disease. ACT 112: Negative or not required by law. Electronically signed by: Niels Christopher M.D. 03/19/2019 8:21 AM
--- NOTE | 2019-03-19 09:33 | Hospitalist Progress Note ---
Date of Service March 19, 2019 Assessment & Plan (1) Acute viral bronchitis: This is a 58-year-old male who has significant PMH of HTN, HLD, hypothyroidism, GERD, depression who presents to ED secondary to cough and congestion x4 days. 2/2 to viral bronchitis continue empiric tamiflu for 5 day course xopenex QID Prednisone 40mg po daily x 5 days no clinical indication for antibiotic at this time incentive spirometry Tessalon perle for cough suppression (pt states Robitussin was not helping) Much improved, still with expiratory wheezing but anticipate this will improve On room air awaiting PT assessment and O2 2 step (2) Weakness: Likely secondary to ongoing viral illness much improved (3) Hx of cervical spine surgery: Status post revision C2-T2 laminectomy and fusion on 01/[address] Conway at [facility] Was admitted to [facility] for subacute rehab 01/12-03/13 Home PT had been ordered for patient, but has not yet received Continue gabapentin, PRN oxycodone (verified dose and frequency with PDMP) No acute pain (4) Abrasion of head: 2/2 to inability to get up off floor supportive care, daily neosporin (5) HTN (hypertension): Blood pressure stable on low-dose lisinopril Monitor (6) HLD (hyperlipidemia): Continue statin (7) Hypothyroidism: Continue levothyroxine (8) Depression: Continue Zoloft (9) GERD (gastroesophageal reflux disease): Continue PPI, asymptomatic (10) DVT prophylaxis: SQ Lovenox Disposition: admit to telemetry, likely discharge to home today once PT eval and 2 step home O2 complete Follow up: PCP Dr. Mcneil upon discharge Supervising Physician Co-Signing Physician Notes Attending addendum: The patient was seen and examined in medical floor He complains today of some cough with wheezing but denies any other significant symptoms He did reasonably well with physical therapy but he still needs to have improvement before sending home Denies any significant symptoms On examination No apparent distress at rest Hemodynamically stable Chest-decreased breath sounds bilaterally with widespread minimal wheezing without any crackles Heart-S1-S2 regular Extremities-no edema His labs and imaging studies reviewed Agree with assessment and plan as outlined above by Miesha [id number], PA-C DR Oksana Emerson Subjective Patient was seen and examined in room 255-2. Follow-up acute viral bronchitis and weakness. "I feel 110% better." He continues to have cough but this has improved. He denies fever, chills, sweats, lightheadedness, dizziness, chest pain, shortness of breath, hemoptysis, nausea, vomiting, abdominal pain. He is passing urine without difficulty. His overall his symptoms are much improved and weakness has improved as well. Has been doing minimal therapy while inpatient. He feels he is ready to discharge home. Review of Systems Review of Systems: All systems reviewed & are unremarkable except as noted in HPI & below Physical Exam Physical Exam: Gen: WD/WN, male, sitting up in bed, NAD, A&O x3 HEENT: Normocephalic, atraumatic, conjunctivae moist, sclerae anicteric, mucous membranes moist. Lung: Clear to Auscultation bilaterally, bilateral expiratory wheezing with prolonged expiratory phase, no improvement with coughing, no rales or rhonchi Heart: Regular rate, regular rhythm, no murmurs, rubs, or gallops Abdomen: Soft, NT, ND +BS x 4 Extremities: No edema Skin: Warm, no rash, negative turgor Results & Data Vital Signs (Past 12 Hours) Vital Signs Temp Pulse Pulse Resp BP BP Pulse Ox 03/19/19 07:06 59 L 16 93 03/19/19 07:01 36.3 C L 60 17 147/88 H 97 03/19/19 04:46 36.5 C 71 19 143/88 H 97 03/19/19 00:50 73 03/18/19 23:20 36.7 C 70 15 132/78 94 Laboratory Results Short CBC 03/19/19 Range/Units 07:04 WBC 4.36 L (4.8-10.8) K/uL Hgb 13.1 L (14.0-18.0) g/dL Hct 40.2 L (42-52) % Plt Count 147 (130-400) K/uL BMP 03/19/19 07:04 Sodium 137 Potassium 3.3 L Chloride 105 Carbon Dioxide 26 BUN 21 H D Creatinine 1.22 D Glucose 87 Calcium 9.1 Diagnostic Findings CXR: IMPRESSION: 1. No acute cardiopulmonary disease. Medications Administered Atorvastatin Calcium (Lipitor) [address] [facility] Stop: 04/17/19 08:59 Last Admin: 03/19/19 07:54 Dose: 10 mg Documented by: [id number] Admin: 03/18/19 08:30 Dose: 10 mg Documented by: [id number] Enoxaparin S[facility]ox) [facility] Stop: 04/17/19 08:59 Last Admin: 03/19/19 07:56 Dose: 40 mg Documented by: [id number] Admin: 03/18/19 08:30 Dose: 40 mg Documented by: [id number] Ferrous Sulfate (Feosol) [facility] Stop: 04/17/19 08:59 Last Admin: 03/19/19 07:56 Dose: 325 mg Documented by: [id number] Admin: 03/18/19 08:29 Dose: 325 mg Documented by: [id number] Folic Acid (Folvite) 1 [facility] Stop: 04/17/19 08:59 Last Admin: 03/19/19 07:56 Dose: 1 mg Documented by: [id number] Admin: 03/18/19 08:30 Dose: 1 mg Documented by: [id number] Gabapentin (Neurontin) [address] [facility] Stop: 04/16/19 20:59 Last Admin: 03/19/19 07:55 Dose: 300 mg Documented by: [id number] Admin: 03/18/19 19:35 Dose: 300 mg Documented by: [id number] Admin: 03/18/19 14:36 Dose: 300 mg Documented by: [id number] Admin: 03/18/19 08:25 Dose: 300 mg Documented by: [id number] Admin: 03/17/19 20:52 Dose: 300 mg Documented by: [id number] Guaifenesin/Dextromethorphan (Robitussin Cough-Chest Dm) 5 ml PO Q6H PRN PRN Reason: Cough Stop: 04/16/19 16:52 Last Admin: 03/19/19 07:54 Dose: 5 ml Documented by: [id number] Admin: 03/18/19 19:07 Dose: 5 ml Documented by: [id number] Admin: 03/18/19 13:01 Dose: 5 ml Documented by: [id number] Admin: 03/18/19 04:21 Dose: 5 ml Documented by: [id number] Admin: 03/17/19 20:02 Dose: 5 ml Documented by: [id number] Levalbuterol HCl (Xopenex 0.63 Mg/3 Ml Neb) 0.[address] [facility] Stop: 04/16/19 18:59 Last Admin: 03/19/19 07:04 Dose: 0.63 mg Documented by: [id number] Admin: 03/19/19 00:45 Dose: Not Given Documented by: [id number] Admin: 03/18/19 19:05 Dose: 0.63 mg Documented by: [id number] Admin: 03/18/19 13:19 Dose: 0.63 mg Documented by: [id number] Admin: 03/18/19 07:31 Dose: 0.63 mg Documented by: [id number] Admin: 03/18/19 01:29 Dose: Not Given Documented by: [id number] Admin: 03/17/19 19:28 Dose: 0.63 mg Documented by: [id number] [facility]ine S[facility] ([facility]) [facility] Stop: 04/17/19 06:29 Last Admin: 03/19/19 06:07 Dose: 50 mcg Documented by: [id number] Admin: 03/18/19 08:25 Dose: 50 mcg Documented by: [id number] Lisinopril (Zestril) 2.[address] [facility] Stop: 04/17/19 08:59 Last Admin: 03/19/19 07:57 Dose: 2.5 mg Documented by: [id number] Admin: 03/18/19 08:29 Dose: 2.5 mg Documented by: [id number] Neomycin/Polymyxin/Bacitracin (Neosporin Oint) [address] [facility] Stop: 04/16/19 17:14 Last Admin: 03/19/19 07:54 Dose: 1 appln Documented by: [id number] Admin: 03/18/19 08:31 Dose: 1 appln Documented by: [id number] Admin: 03/17/19 20:02 Dose: 1 appln Documented by: [id number] Oseltamivir Phosphate (Tamiflu) [address] [facility]; Protocol Stop: 03/22/19 20:59 Last Admin: 03/19/19 07:54 Dose: 75 mg Documented by: [id number] Admin: 03/18/19 19:35 Dose: 75 mg Documented by: [id number] Admin: 03/18/19 08:27 Dose: 75 mg Documented by: [id number] Admin: 03/17/19 20:52 Dose: 75 mg Documented by: [id number] Oxycodone HCl (Roxicodone Immediate Rel) 5 mg PO BID PRN PRN Reason: Pain Stop: 03/31/19 17:16 Last Admin: 03/18/19 19:32 Dose: 5 mg Documented by: [id number] Admin: 03/17/19 20:51 Dose: 5 mg Documented by: [id number] Pantoprazole Sodium (Protonix) [address] [facility] Stop: 04/17/19 08:59 Last Admin: 03/19/19 07:56 Dose: 40 mg Documented by: [id number] Admin: 03/18/19 08:30 Dose: 40 mg Documented by: [id number] Prednisone (Prednisone) [address] [facility] Stop: 04/17/19 08:59 Last Admin: 03/19/19 07:55 Dose: 40 mg Documented by: [id number] Admin: 03/18/19 08:29 Dose: 40 mg Documented by: [id number] Sertraline HCl (Zoloft) [address] [facility] Stop: 04/17/19 08:59 Last Admin: 03/19/19 07:56 Dose: 50 mg Documented by: [id number] Admin: 03/18/19 08:32 Dose: 50 mg Documented by: [id number] Discontinued Medications Albuterol (Duoneb) 6 ml NEB NOW STA Stop: 03/17/19 11:42 Last Admin: 03/17/19 12:11 Dose: 6 ml Documented by: [id number] Albuterol (Duoneb) 6 ml NEB NOW STA Stop: 03/17/19 13:47 Last Admin: 03/17/19 14:06 Dose: 6 ml Documented by: [id number] Sodium Chloride (Nss 1000ml) 1,000 mls @ 999 mls/hr IV .Q1H1M RACHELLE Stop: 03/17/19 12:45 Last Infusion: 03/17/19 13:58 Dose: 0 mls/hr Documented by: [id number] Admin: 03/17/19 12:04 Dose: 999 mls/hr Documented by: [id number] Methylprednisolone (Solumedrol) 40 mg IV NOW STA Stop: 03/17/19 11:57 Last Admin: 03/17/19 12:04 Dose: 40 mg Documented by: [id number]
[2019-03-19] MEDS ORDERED: POTASSIUM CHLORIDE 20 MEQ TABCR PO STA (09:46)
[2019-03-19] MEDS: BENZONATATE 100 MG CAPSULE PO SCH ×3 (10:40→20:55)
[2019-03-19] MEDS: OXYCODONE HCL IR 5 MG TAB (IMMEDIATE RELEASE) PO PRN (20:55)
[2019-03-20] MEDS: LEVALBUTEROL HCL 0.63 MG/3 ML NEB NEB SCH ×3 (01:28→13:03)
[2019-03-20] MEDS: LEVOTHYROXINE SODIUM 50 MCG TABLET PO SCH (06:08)
[2019-03-20 08:31] LABS: BUN Creatinine Ratio 20.6 (10-20); Calcium 9.3 mg/dl (8.5-10.1); Creatinine Clr Calc Pharmacy 104.3 ml/min; Est GFR (African American) 88.8; Est GFR (Non-African American) 76.7; Potassium 3.4 mmol/L (3.5-5.1)
[2019-03-20] MEDS: ENOXAPARIN INJ 40 MG/0.4 ML SYR SQ SCH (08:42)
[2019-03-20] MEDS: NEOMYCIN/POLYMYX/BACITR OINT 15 GM TUBE EXT SCH (08:42)
[2019-03-20] MEDS: FOLIC ACID 1 MG TAB PO SCH (08:43)
[2019-03-20] MEDS: BENZONATATE 100 MG CAPSULE PO SCH (08:43)
[2019-03-20] MEDS: FERROUS SULFATE 325 MG TAB PO SCH (08:43)
[2019-03-20] MEDS: ATORVASTATIN 10 MG TAB PO SCH (08:43)
[2019-03-20] MEDS: SERTRALINE HCL 50 MG TABLET PO SCH (08:43)
[2019-03-20] MEDS: GABAPENTIN 300 MG CAP PO SCH (08:43)
[2019-03-20] MEDS: predniSONE 20 MG TAB PO SCH (08:43)
[2019-03-20] MEDS: OSELTAMIVIR PHOSPHATE 75 MG CAP PO SCH (08:44)
[2019-03-20] MEDS: PANTOprazole 40 MG TAB PO SCH (08:44)
--- NOTE | 2019-03-20 09:22 | Hospitalist Progress Note ---
Date of Service March 20, 2019 Assessment & Plan (1) Acute viral bronchitis: This is a 58-year-old male who has significant PMH of HTN, HLD, hypothyroidism, GERD, depression who presents to ED secondary to cough and congestion x4 days. 2/2 to viral bronchitis Continue empiric tamiflu for 5 day course as well as prednisone 40mg po daily x 5 days -Xopenex QID, tessalon perles for cough suppression, incentive spirometry -No clinical indication for antibiotic at this time -Much improved, still with expiratory wheezing but anticipate this will improve -Saturating at 96% on room air -Awaiting PT assessment and O2 2 step (2) Weakness: Likely secondary to ongoing viral illness Much improved (3) Hx of cervical spine surgery: Status post revision C2-T2 laminectomy and fusion on 01/[address] Conway at [facility] Was admitted to [facility] for subacute rehab 01/12-03/13 Home PT had been ordered for patient, but has not yet received Continue gabapentin, PRN oxycodone (verified dose and frequency with PDMP) No acute pain (4) Abrasion of head: 2/2 to inability to get up off floor supportive care, daily neosporin (5) HTN (hypertension): Blood pressure stable on low-dose lisinopril Monitor (6) HLD (hyperlipidemia): Continue statin (7) Hypothyroidism: Continue levothyroxine (8) Depression: Continue Zoloft (9) GERD (gastroesophageal reflux disease): Continue PPI, asymptomatic (10) DVT prophylaxis: SQ Lovenox Disposition: Admitted to [facility], likely discharge to home today once PT eval and 2 step home O2 complete Follow up: PCP Dr. Mcneil upon discharge Patient seen in collaboration with Dr. Emerson. Please see addendum. Supervising Physician Co-Signing Physician Notes Attending addendum: The patient was seen and examined in medical floor He has been feeling 100% better Still has minimal wheezing but no shortness of breath on exertion He did very well with physical therapy this morning and wants to go home On examination Lying in bed comfortably Hemodynamically stable Chest-decreased breath sounds bilaterally with minimal wheezing Heart-S1-S2 regular Abdomen-benign Extremities-negative His labs and imaging studies and therapy note evaluated He will be discharged this afternoon He will make an appointment with his primary care physician within 1 week and continue outpatient physical therapy Agree with assessment and plan as outlined above by URI Reid Dr Subjective Patient was seen and examined in room 255-2 for follow-up for acute viral bronchitis and weakness. Continues to feel better with improved cough. Saturating at 96% on room air. Intermittent wheezing. Denies fever, chills, sweats, lightheadedness, dizziness, chest pain, shortness of breath, nausea, vomiting, abdominal pain. He is passing urine without difficulty. Waiting to be evaluated by PT. Review of Systems Review of Systems: At least ten systems reviewed and negative except as noted in the HPI. Physical Exam Physical Exam: Gen: WD/WN, male, sitting up in bed, NAD, A&O x3, conversing easily HEENT: Normocephalic, atraumatic, conjunctivae moist, sclerae anicteric, mucous membranes moist. Lung: Clear to auscultation except for bilateral expiratory wheezing with prolonged expiratory phase. No rales or rhonchi Heart: Regular rate, regular rhythm, no murmurs, rubs, or gallops Abdomen: Soft, NT, ND +BS x 4 Extremities: No edema Skin: Warm, no rash, negative turgor Results & Data Vital Signs (Past 12 Hours) Vital Signs Temp Pulse Pulse Resp BP BP Pulse Ox 03/20/19 08:00 36.5 C 57 L 18 146/83 H 96 03/20/19 07:35 56 L 03/20/19 07:12 56 L 18 96 03/20/19 05:15 36.3 C L 57 L 18 154/89 H 98 03/20/19 02:07 65 03/19/19 23:00 36.6 C 63 18 130/66 95 Laboratory Results [facility] 03/20/19 07:42 Sodium 138 Potassium 3.4 L Chloride 106 Carbon Dioxide 26 BUN 22 H Creatinine 1.07 Glucose 87 Calcium 9.3
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
== END 2019-03-20 13:34 | disposition home health service (06) ==
LOC: 2W 11:29 → ED 11:29 → SUATTDRO 14:45 → 2W 15:18

== ENCOUNTER 2021-04-27 15:10 | Inpatient (IN) ==
[2021-04-27] MEDS ORDERED: ceFAZolin 2000MG 2,000 MG/15 ML SYR IV STA (15:18)
[2021-04-27] MEDS ORDERED: fentaNYL citrate 100 MCG/2 ML VIAL ONE ×4 (15:19→19:49)
[2021-04-27] MEDS ORDERED: DIPHTHERIA/TETANUS/PERTUSSIS 0.5 ML SYR/VIAL IM ONE (15:21)
--- NOTE | 2021-04-27 15:45 | XRay Report ---
XR ankle LT 2V HISTORY: 60 years-old Male OPEN ANKLE FX acute pain of the left ankle status post trauma COMPARISON: None TECHNIQUE: 2 views of the left ankle FINDINGS: Acute fracture or dislocation of the left ankle with open fracture component. Comminuted fracture def ormity of the distal fibular diaphysis demonstrates apex medial angulation of 17 degrees with 2 cm of lateral displacement. Mild apex volar angulation with 9 mm volar displacement involving the esophagu s fibular fracture. There is approximately 3.5 cm of lateral displacement involving the talus in rela tion to the distal tibia. Overlying gauze material and cast. IMPRESSION: Acute fracture dislocation of the ankle with open component. ACT 112: Negative or not required by law. The above report was generated using voice recognition software. It may contain grammatical, syntax o r spelling errors. Electronically signed by: Yoni Whittington M.D. 04/27/2021 3:44 PM
[2021-04-27 15:56] LABS: Basophils # (auto) 0.02 K/uL (0-0.2); Basophils % (auto) 0.3 %; Eosinophils # (auto) 0.09 K/uL (0-0.5); Eosinophils % (auto) 1.5 %; Hematocrit (blood only) 41.6 % (42-52); Hemoglobin 14.1 g/dL (14.0-18.0); Lymphocytes % (auto) 28.2 %; Mean Corpuscular Hemoglobin 31.8 pg (25-34); Mean Corpuscular Hgb Conc 33.9 g/dL (32-36); Mean Corpuscular Volume 93.9 fL (80-100); Mean Platelet Volume 8.9 fL (7.4-10.4); Monocytes # (auto) 0.44 K/uL (0.11-0.59); Monocytes % (auto) 7.3 %; Neutrophils # (auto) 3.78 K/uL (1.4-6.5); Neutrophils % (auto) 62.7 %; Platelet Count 199 K/uL (130-400); RDW Coefficient of Variation 13.3 % (11.5-14.5); RDW Standard Deviation 45.8 fL (36.4-46.3); Red Blood Count 4.43 M/uL (4.7-6.1); White Blood Count 6.03 K/uL (4.8-10.8)
[2021-04-27 16:14] LABS: Albumin Globulin Ratio 1.4 (0.9-2); BUN Creatinine Ratio 9.5 (10-20); Bilirubin,Total 0.9 mg/dl (0.2-1.0); Calcium 8.6 mg/dl (8.5-10.1); Creatinine Clr Calc Pharmacy 146.4 ml/min; Est GFR (African American) 111.1 ml/min; Est GFR (Non-African American) 95.8 ml/min; Globulin 2.8 gm/dl (2.5-4.0); Potassium 4.3 mmol/L (3.5-5.1); Total Protein 6.8 gm/dl (6.0-8.3)
[2021-04-27] MEDS ORDERED: fentaNYL citrate 100 MCG/2 ML VIAL IV PRN ×2 (16:27→18:16)
[2021-04-27] MEDS ORDERED: SODIUM CHLORIDE 0.9% 1000ML 1,000 ML IV ONE (16:27)
--- NOTE | 2021-04-27 17:01 | History & Physical Report ---
Date of Service April 27, 2021 Assessment & Plan (1) Type I or II open fracture dislocation of left ankle joint: Plan: Grade 2 open fracture dislocation left ankle. Patient will be taken to the operating room by Dr. Samaniego today for irrigation debridement, closed reduction and ORIF of the left ankle fracture dislocation. History of Present Illness Chief Complaint: Left ankle pain Primary Care Provider: Harrison Mcneil MD Patient is a 60-year-old white male who was getting out of his car to take his recycling to the recycling center. Patient states that he ended up slipping on the ice of which she did not see and he fell down twisting his ankle and putting most of his weight on that ankle. He had immediate pain and bleeding noted of the left ankle and he noted the foot and ankle were deformed position. He was obviously not able to ambulate and he was brought to the emergency room. He was seen by the staff, x-rays were taken and was found that he had a fracture dislocation of his left ankle. Per nursing staff, patient had some brisk bleeding however they were able to get the bleeding under control. They dressed the wounds and put the patient in a small posterior splint. We have been asked to take care of this gentleman. Allergies Allergy/AdvReac Type Severity Reaction Status Date / Time egg Allergy Anaphylaxis Unverified 04/27/21 15:49 peanut Allergy Anaphylaxis Unverified 04/27/21 15:49 Home Medications Medication Instructions Recorded Confirmed Type acetaminophen 500 mg tablet 1,000 mg PO Q6H PRN 03/17/19 04/27/21 History (Tylenol Extra Strength) atorvastatin 10 mg tablet 10 mg PO QAM 03/17/19 04/27/21 History ferrous sulfate 325 mg (65 mg 352 mg PO QAM 03/17/19 04/27/21 History iron) tablet folic acid 1 mg tablet 1 mg PO QAM 03/17/19 04/27/21 History gabapentin 300 mg capsule 600 mg PO TID 03/17/19 04/27/21 History levothyroxine 50 mcg tablet 50 mcg PO QAM 03/17/19 04/27/21 History oxycodone 5 mg tablet 5 mg PO BID PRN 03/17/19 04/27/21 History pantoprazole 20 mg tablet,delayed 20 mg PO QAM 03/17/19 04/27/21 History release sertraline 50 mg tablet 50 mg PO QAM 03/17/19 04/27/21 History zolpidem 5 mg tablet (Ambien) 5 mg PO HS PRN 03/17/19 04/27/21 History benzonatate 100 mg capsule 100 mg PO Q8 PRN 04/27/21 04/27/21 History doxycycline hyclate 100 mg capsule 100 mg PO BID 04/27/21 04/27/21 History methocarbamol 500 mg tablet 1,000 mg PO QID 04/27/21 04/27/21 History Past Med/Surg History Medical History Depression GERD (gastroesophageal reflux disease) HLD (hyperlipidemia) HTN (hypertension) Hypothyroidism Surgical History Hx of cervical spine surgery X3 First in 2000 Second 12/22/2018 at [facility] Revision 01/05/2019 at [facility] C2-T2 laminectomy and fusion Family History Father Pancreatic cancer Mother Alcohol abuse Tobacco abuse Denies family history of Diabetes Coronary heart disease Hypertension Social History (Updated 04/27/21 @ 16:54 by Alexis Moya PA-C) Smoking Status: Never smoker Hx Alcohol Use: Yes (Patient states that he has a sixpack of beer every other day or so.) Alcohol type: beer Hx Substance Use: No Preferred Language: Luxembourgish Communication Ability: Effective 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 Beliefs That Will Affect Care: None marital status: Legally Current Living Situation: Alone current occupational status: employed Feels Safe at Home: Yes Assistive Devices: None Review of Systems Review of Systems: All systems reviewed & are unremarkable except as noted in HPI & below Physical Exam Constitutional: WD/WN, vitals as above Eyes: Patient has some mild scleral injection ENMT: external ear and nose normal, oropharynx normal Neck: trachea midline, no thyromegaly Respiratory: normal respiratory effort, lungs clear to auscultation Cardiovascular: RRR, no murmur, no edema Gastrointestinal (Abdomen): normal bowel sounds, soft, nontender, no hepatosplenomegaly Obese Musculoskeletal: On examination of his left lower extremity, the patient has a small posterior splint and Jay wrap applied to the left foot and ankle. His toes are pink and warm at this time and he is able to move his toes. Sensation is intact. Capillary refill is sluggish. No other injuries or complaints of the left lower extremity. Right lower extremity is unaffected as are the upper extremities. Range of motion within normal limits. Left foot with dorsalis pedis not obtained secondary to bulky dressing applied. Right dorsalis pedis intact 2/4. Upper extremities 2/4 bilaterally. There is no gross motor or sensory loss seen at this time. Per patient pictures, he has a grade 2 open fx dislocation of the left ankle. Results & Data Results & Data ([facility]) Vital Signs (Past 12 Hours) Vital Signs Temp Pulse Pulse Resp BP BP Pulse Ox 04/27/21 16:47 66 20 106/71 98 04/27/21 16:30 64 22 100/58 L 97 04/27/21 16:27 62 22 85/52 L 97 04/27/21 16:00 62 22 104/59 L 95 04/27/21 15:41 36.5 C 69 22 118/83 100 04/27/21 15:37 73 20 119/85 100 Diagnostic Findings Laboratory Results WBC 6.03 K/uL (4.8-10.8) 04/27/21 15:48 RBC 4.43 M/uL (4.7-6.1) L 04/27/21 15:48 Hgb 14.1 g/dL (14.0-18.0) 04/27/21 15:48 Hct 41.6 % (42-52) L 04/27/21 15:48 MCV 93.9 fL (80-100) 04/27/21 15:48 MCH 31.8 pg (25-34) 04/27/21 15:48 MCHC 33.9 g/dL (32-36) 04/27/21 15:48 RDW Std Deviation 45.8 fL (36.4-46.3) 04/27/21 15:48 RDW Coeff of Kamaljit 13.3 % (11.5-14.5) 04/27/21 15:48 Plt Count 199 K/uL (130-400) 04/27/21 15:48 MPV 8.9 fL (7.4-10.4) 04/27/21 15:48 Immature Gran % (Auto) 0.0 % 04/27/21 15:48 Neut % (Auto) 62.7 % 04/27/21 15:48 Lymph % (Auto) 28.2 % 04/27/21 15:48 [place] % (Auto) 7.3 % 04/27/21 15:48 Eos % (Auto) 1.5 % 04/27/21 15:48 Baso % (Auto) 0.3 % 04/27/21 15:48 Neut # (Auto) 3.78 K/uL (1.4-6.5) 04/27/21 15:48 Lymph # (Auto) 1.70 K/uL (1.2-3.4) 04/27/21 15:48 [place] # (Auto) 0.44 K/uL (0.11-0.59) 04/27/21 15:48 Eos # (Auto) 0.09 K/uL (0-0.5) 04/27/21 15:48 Baso # (Auto) 0.02 K/uL (0-0.2) 04/27/21 15:48 Immature Gran # (Auto) 0.00 K/uL (0.00-0.02) 04/27/21 15:48 Sodium 127 mmol/L (136-145) L 04/27/21 15:48 Potassium 4.3 mmol/L (3.5-5.1) 04/27/21 15:48 Chloride 94 mmol/L (98-107) L 04/27/21 15:48 Carbon Dioxide 23 mmol/L (21-32) 04/27/21 15:48 Anion Gap 10 (3-11) 04/27/21 15:48 BUN 8 mg/dl (6-23) 04/27/21 15:48 Creatinine 0.84 mg/dl (0.6-1.4) 04/27/21 15:48 Est Cr Clr Drug Dosing 146.4 ml/min 04/27/21 15:48 Est GFR ( Amer) 111.1 ml/min 04/27/21 15:48 Est GFR (Non-Af Amer) 95.8 ml/min 04/27/21 15:48 BUN/Creatinine Ratio 9.5 (10-20) L 04/27/21 15:48 Glucose 82 mg/dl (70-99(Fasting)) 04/27/21 15:48 Calcium 8.6 mg/dl (8.5-10.1) 04/27/21 15:48 Total Bilirubin 0.9 mg/dl (0.2-1.0) 04/27/21 15:48 AST 53 U/L (13-39) H 04/27/21 15:48 ALT 40 U/L (7-52) 04/27/21 15:48 Alkaline Phosphatase 100 U/L (34-104) 04/27/21 15:48 Total Protein 6.8 gm/dl (6.0-8.3) 04/27/21 15:48 Albumin 4.0 gm/dl (3.4-5.0) 04/27/21 15:48 Globulin 2.8 gm/dl (2.5-4.0) 04/27/21 15:48 Albumin/Globulin Ratio 1.4 (0.9-2) 04/27/21 15:48 SARS-CoV-2, RNA, NAAT NEGATIVE (NEGATIVE) 04/27/21 15:18 Impressions Ankle X-Ray 04/27/21 00:00 XR ankle LT 2V HISTORY: 60 years-old Male OPEN ANKLE FX acute pain of the left ankle status post trauma COMPARISON: None TECHNIQUE: 2 views of the left ankle FINDINGS: Acute fracture or dislocation of the left ankle with open fracture component. Comminuted fracture deformity of the distal fibular diaphysis demonstrates apex medial angulation of 17 degrees with 2 cm of lateral displacement. Mild apex volar angulation with 9 mm volar displacement involving the esophagus fibular fracture. There is approximately 3.5 cm of lateral displacement involving the talus in relation to the distal tibia. Overlying gauze material and cast. IMPRESSION: Acute fracture dislocation of the ankle with open component. ACT 112: Negative or not required by law. The above report was generated using voice recognition software. It may contain grammatical, syntax or spelling errors. Electronically signed by: Yoni Whittington M.D. 04/27/2021 3:44 PM Supervising Physician Co-Signing Physician Notes Patient seen and examined and agree with Alexis Moya PA-C assessment as above. Patient scheduled for irrigation debridement grade 2 open fracture left ankle with ORIF lateral malleolus fracture dislocation. Maintain n.p.o. Written consent performed. Operative left lower extremity marked. Patient will be placed on IV antibiotics for 24 hours, pain control, ice and elevation and DVT prophylaxis
[2021-04-27] MEDS ORDERED: ONDANSETRON INJ 2 MG/ML 2 ML VIAL ONE ×2 (17:18→19:52)
[2021-04-27] MEDS ORDERED: ROCURONIUM BROMIDE 10 MG/ML 5 ML VIAL IV ONE (17:18)
[2021-04-27] MEDS ORDERED: DEXAMETHASONE SOD INJ 4 MG/ML VIAL ONE (17:18)
[2021-04-27] MEDS ORDERED: MIDAZOLAM HCL 1 MG/ML 2ML VIAL ONE (17:18)
[2021-04-27] MEDS ORDERED: SUCCINYLCHOLINE CHLORIDE 20 MG/ML 10 ML VIAL IV ONE (17:18)
[2021-04-27] MEDS ORDERED: PROPOFOL IV EMULSION 10 MG/ML 20 ML VIAL IV ONE (17:18)
[2021-04-27] MEDS ORDERED: LIDOCAINE 2% 2 ML VIAL/AMP(20MG/ML) INFIL ONE (17:18)
[2021-04-27] MEDS ORDERED: ceFAZolin 330 MG/ML 1 GM VIAL ONE ×2 (17:21→18:48)
--- NOTE | 2021-04-27 17:25 | History & Physical Bridge Note ---
Date of Service April 27, 2021 History & Physical Bridge Note I have examined the patient, reviewed the History & Physical and in the interval since the performance of the History & Physical I have noted the following changes of clinical significance: no changes noted
--- NOTE | 2021-04-27 17:26 | Emergency Department Note ---
Impression & Plan Open fracture dislocation of left ankle, Acute hyponatremia ED Provider Note INFORMANT: Patient and EMS ED PROVIDER(S): Real Lin MD CHIEF COMPLAINT: Left ankle pain PLAN: Disposition: Admitted to the OR Condition: Good Outpatient prescription management: none Referral: None MEDICAL DECISION MAKING: Patient presented to the emergency department because of an obvious injury to the left ankle. He had significant bleeding prehospital and immediate open nature of the injury the patient had tourniquet placed. The patient's wound was dressed with hemostatic dressing he was splinted. The tourniquets were taken down. His capillary refill was 2 seconds. Sensation was intact. Patient was able to wiggle his toes. Hemostasis was achieved. The patient had some mildly low blood pressure and was hydrated with normal saline boluses. Patient did receive 2 L of normal saline. I suspect this is a combination of blood loss and also from the pain medication. Patient did required multiple doses of IV fentanyl. He was given antibiotics and tetanus was updated. Emergent con sultation was placed with [facility]. The case was discussed with Dr. Carlos Balbuena. I was contacted by Dr. Whiting's physician accounting assistant and they would like patient taken to the operative suite as soon as possible so that they can intervene. I did note that the patient was found to have hyponatremia on laboratory testing and this was unexpected. I did advise for medicine consultation and this will be done after the form surgery. Triage Nursing notes reviewed and agree them. Vital Signs: reviewed and remarkable for mild hypotension Differential diagnosis: Open fracture, subluxation, dislocation, contusion, ligamentous injury, neurovascular, compartment syndrome, rhabdomyolysis, as well as other pathologies. Diagnostics interpreted by me: ECG: none Cardiac Monitoring: Cardiac monitoring ordered by me: The patient was placed on continuous cardiac monitoring and observed. It revealed a normal sinus rhythm at 68 beats per minute without ectopy or evidence of dysrhythmia. Imaging studies: X-ray imaging of the left ankle reveals no obvious fracture dislocation and soft tissue disruption. HPI: The patient is a 60year old male who presents to the Emergency Room with complaints of left ankle pain. This started about an hour and is from an accidental fall on ice. Patient was trying to get into his car and slipped on the ice. He twisted his ankle and suffered an open wound. EMS attended the patient and noted that he had what appeared to be an obvious fracture, dislocation with open injury and significant bleeding. They attempted to pressure to control the bleeding and then subsequently placed a tourniquet. He continued to bleed and they placed a second tourniquet. He received IV fentanyl prehospital. The patient also notes the following associated symptoms, none. Patient's pain was an 8 out of 10. Last oral intake of food was yesterday. Pt denies LOC, headache, visual changes, neck pain, chest pain, breathing difficulties, nausea, vomiting, abdominal pain, back pain, other extremity pain, numbness, weakness, or other complaints. ROS: See above HPI for pertinent positives & negatives. A total of 10 systems reviewed and were otherwise negative. PAST MEDICAL HISTORY:See Below , hypertension PAST SURGICAL HISTORY:See Below, FAMILY HISTORY:See Below SOCIAL HISTORY:See Below, non-smoker HOME MEDICATIONS:See Below ALLERGIES:See Below VITALS:See Below PHYSICAL EXAMINATION: GENERAL: Awake, alert, uncomfortable-appearing, in no distress HENT: Normocephalic, atraumatic. Oropharynx unremarkable. EYES: Normal conjunctiva. Sclera non-icteric. NECK: Inspection normal. Non-tender. Supple. No nuchal rigidity. FROM. No masses. RESPIRATORY: Clear to auscultation. No wheezes. No rales. Normal respiratory effort. CARDIAC: Normal rate. Normal rhythm. No murmurs. No rubs. GI: Soft, non-distended. No tenderness to palpation. No rebound or guarding. No masses. RECTAL: Deferred. MUSCULOSKELETAL: Upper and right lower extremities are atraumatic. There is an obvious large gaping laceration with oozing blood noted over the left ankle. There is obvious dislocation and fracture present with lateral rotation. Cap refill is 2 seconds in the left foot. Patient is able to wiggle his toes. NEURO: Normal sensorium. No sensory or motor deficits noted. SKIN: No rash or jaundice noted. SPLINTING: Indication: \Fracture stabilization The injured extremity was identified. The patient was prepped and measured for the placement of a short leg posterior orthoglass splint. Quick clot hemostatic dressing applied. Splint applied in the standard fashion and secured using an elastic bandage. Normal neurovascular status after placement verified by me. Hemostasis achieved. The patient tolerated the procedure well. No complications. Real Lin MD Past Med/Surg History Medical History Depression GERD (gastroesophageal reflux disease) HLD (hyperlipidemia) HTN (hypertension) Hypothyroidism Surgical History Hx of cervical spine surgery X3 First in 2000 Second 12/22/2018 at 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 Beliefs That Will Affect Care: None marital status: Legally Current Living Situation: Alone current occupational status: employed Feels Safe at Home: Yes Assistive Devices: None Allergies Allergies Allergy/AdvReac Type Severity Reaction Status Date / Time egg Allergy Anaphylaxis Unverified 04/27/21 15:49 peanut Allergy Anaphylaxis Unverified 04/27/21 15:49 Home Meds Home Medications Medication Instructions Recorded Confirmed acetaminophen 500 mg tablet 1,000 mg PO Q6H PRN 03/17/19 04/27/21 (Tylenol Extra Strength) atorvastatin 10 mg tablet 10 mg PO QAM 03/17/19 04/27/21 ferrous sulfate 325 mg (65 mg 352 mg PO QAM 03/17/19 04/27/21 iron) tablet folic acid 1 mg tablet 1 mg PO QAM 03/17/19 04/27/21 gabapentin 300 mg capsule 600 mg PO TID 03/17/19 04/27/21 levothyroxine 50 mcg tablet 50 mcg PO QAM 03/17/19 04/27/21 oxycodone 5 mg tablet 5 mg PO BID PRN 03/17/19 04/27/21 pantoprazole 20 mg tablet,delayed 20 mg PO QAM 03/17/19 04/27/21 release sertraline 50 mg tablet 50 mg PO QAM 03/17/19 04/27/21 zolpidem 5 mg tablet (Ambien) 5 mg PO HS PRN 03/17/19 04/27/21 benzonatate 100 mg capsule 100 mg PO Q8 PRN 04/27/21 04/27/21 doxycycline hyclate 100 mg capsule 100 mg PO BID 04/27/21 04/27/21 methocarbamol 500 mg tablet 1,000 mg PO QID 04/27/21 04/27/21 Results & Data (ED) Vital Signs Vital Signs - 24 hr 04/27/21 15:37 04/27/21 15:41 04/27/21 16:00 Temperature 36.5 C Temperature Source Oral Pulse Rate 69 Pulse Rate [Apical] 73 62 Pulse Rhythm Regular Pulse Rhythm [Apical] Regular Regular Pulse Strength [Apical] Normal Normal Respiratory Rate 22 Respiratory Effort / Characteristics Spontaneous Non-Labored Spontaneous Non-Labored Spontaneous Respiratory Depth Normal Normal Normal Respiratory Pattern Regular Regular Blood Pressure 118/83 Blood Pressure [Left Arm] 119/85 104/59 L Blood Pressure [Right Arm] Blood Pressure Mean 94 Blood Pressure Mean [Left Arm] 96 74 Blood Pressure Mean [Right Arm] Blood Pressure Position [Right Arm] Pulse Oximetry 100 100 95 Oxygen Delivery Method Non-rebreather Non-rebreather Room Air Oxygen Flow Rate 15 15 Sepsis Recent Fever Within 48 Hours No Sepsis New/Unexplained Change in Mental Status No Sepsis Action Taken by Nursing No Action Required 04/27/21 16:27 04/27/21 16:30 04/27/21 16:47 Temperature Temperature Source Pulse Rate 66 Pulse Rate [Apical] 62 64 Pulse Rhythm Pulse Rhythm [Apical] Regular Regular Pulse Strength [Apical] Normal Respiratory Rate 20 Respiratory Effort / Characteristics Non-Labored Spontaneous Non-Labored Spontaneous Respiratory Depth Normal Normal Respiratory Pattern Regular Regular Blood Pressure 106/71 Blood Pressure [Left Arm] 85/52 L 100/58 L Blood Pressure [Right Arm] Blood Pressure Mean Blood Pressure Mean [Left Arm] 63 72 Blood Pressure Mean [Right Arm] Blood Pressure Position [Right Arm] Pulse Oximetry 97 97 98 Oxygen Delivery Method Room Air Room Air Room Air Oxygen Flow Rate Sepsis Recent Fever Within 48 Hours Sepsis New/Unexplained Change in Mental Status Sepsis Action Taken by Nursing 04/27/21 17:01 Temperature 36.3 C L Temperature Source Oral Pulse Rate Pulse Rate [Apical] 68 Pulse Rhythm Pulse Rhythm [Apical] Regular Pulse Strength [Apical] Normal Respiratory Rate 20 Respiratory Effort / Characteristics Non-Labored Spontaneous Respiratory Depth Normal Respiratory Pattern Regular Blood Pressure Blood Pressure [Left Arm] Blood Pressure [Right Arm] 116/60 Blood Pressure Mean Blood Pressure Mean [Left Arm] Blood Pressure Mean [Right Arm] 78 Blood Pressure Position [Right Arm] Semi-fowlers Pulse Oximetry 95 Oxygen Delivery Method Room Air Oxygen Flow Rate Sepsis Recent Fever Within 48 Hours Sepsis New/Unexplained Change in Mental Status Sepsis Action Taken by Nursing Laboratory Data Result diagrams: 04/27/21 15:48 04/27/21 15:48 Lab Results 04/27/21 04/27/21 04/27/21 Range/Units 15:18 15:48 15:48 WBC 6.03 (4.8-10.8) K/uL RBC 4.43 L (4.7-6.1) M/uL Hgb 14.1 (14.0-18.0) g/dL Hct 41.6 L (42-52) % MCV 93.9 (80-100) fL MCH 31.8 (25-34) pg MCHC 33.9 (32-36) g/dL RDW Std Deviation 45.8 (36.4-46.3) fL RDW Coeff of Kamaljit 13.3 (11.5-14.5) % Plt Count 199 (130-400) K/uL MPV 8.9 (7.4-10.4) fL Immature Gran % (Auto) 0.0 % Neut % (Auto) 62.7 % Lymph % (Auto) 28.2 % [place] % (Auto) 7.3 % Eos % (Auto) 1.5 % Baso % (Auto) 0.3 % Neut # (Auto) 3.78 (1.4-6.5) K/uL Lymph # (Auto) 1.70 (1.2-3.4) K/uL [place] # (Auto) 0.44 (0.11-0.59) K/uL Eos # (Auto) 0.09 (0-0.5) K/uL Baso # (Auto) 0.02 (0-0.2) K/uL Immature Gran # (Auto) 0.00 (0.00-0.02) K/uL Sodium 127 L (136-145) mmol/L Potassium 4.3 (3.5-5.1) mmol/L Chloride 94 L (98-107) mmol/L Carbon Dioxide 23 (21-32) mmol/L Anion Gap 10 (3-11) BUN 8 (6-23) mg/dl Creatinine 0.84 (0.6-1.4) mg/dl Est Cr Clr Drug Dosing 146.4 ml/min Est GFR ( Amer) 111.1 ml/min Est GFR (Non-Af Amer) 95.8 ml/min BUN/Creatinine Ratio 9.5 L (10-20) Glucose 82 (70-99(Fasting)) mg/dl Calcium 8.6 (8.5-10.1) mg/dl Total Bilirubin 0.9 (0.2-1.0) mg/dl AST 53 H (13-39) U/L ALT 40 (7-52) U/L Alkaline Phosphatase 100 (34-104) U/L Total Protein 6.8 (6.0-8.3) gm/dl Albumin 4.0 (3.4-5.0) gm/dl Globulin 2.8 (2.5-4.0) gm/dl Albumin/Globulin Ratio 1.4 (0.9-2) SARS-CoV-2, RNA, NAAT NEGATIVE (NEGATIVE) Administered Medications Fentanyl Citrate (Fentanyl Citrate 100 Mcg/2 Ml Vial) 50 mcg IV Q15M PRN PRN Reason: Pain Stop: 05/11/21 16:26 Last Admin: 04/27/21 16:36 Dose: 50 mcg Documented by: [id number] Discontinued Medications Diphtheria/Pertussis/Tetanus Vacc (Diphtheria/Tetanus/Pertussis 0.5 Ml Syr/Vial) 0.5 ml IM .ONCE ONE Stop: 04/27/21 15:22 Last Admin: 04/27/21 15:33 Dose: 0.5 ml Documented by: [id number] Fentanyl Citrate (Fentanyl Citrate 100 Mcg/2 Ml Vial) Confirm Administered Dose 100 mcg .ROUTE .STK-MED ONE Stop: 04/27/21 15:20 Last Admin: 04/27/21 15:20 Dose: 100 mcg Documented by: [id number] Cefazolin Sodium (Ancef 2000mg) 2,000 mg in 15 mls @ 3.75 mls/min IV NOW STA Stop: 04/27/21 15:21 Last Admin: 04/27/21 15:32 Dose: 3.75 mls/min Documented by: [id number] Sodium Chloride (Nss 1000ml) 1,000 mls @ 999 mls/hr IV .Q1H1M ONE Stop: 04/27/21 17:27 Last Admin: 04/27/21 16:31 Dose: 999 mls/hr Documented by: [id number] Imaging Data Radiologist's Impression: Ankle X-Ray 04/27/21 00:00 XR ankle LT 2V HISTORY: 60 years-old Male OPEN ANKLE FX acute pain of the left ankle status post trauma COMPARISON: None TECHNIQUE: 2 views of the left ankle FINDINGS: Acute fracture or dislocation of the left ankle with open fracture component. Comminuted fracture deformity of the distal fibular diaphysis demonstrates apex medial angulation of 17 degrees with 2 cm of lateral displacement. Mild apex volar angulation with 9 mm volar displacement involving the esophagus fibular fracture. There is approximately 3.5 cm of lateral displacement involving the talus in relation to the distal tibia. Overlying gauze material and cast. IMPRESSION: Acute fracture dislocation of the ankle with open component. ACT 112: Negative or not required by law. The above report was generated using voice recognition software. It may contain grammatical, syntax or spelling errors. Electronically signed by: Yoni Whittington M.D. 04/27/2021 3:44 PM Discharge Plan Visit Data Chief Complaint: Ankle Pain ED Provider: Real Lin Discharge Problem: Open fracture dislocation of left ankle, Acute hyponatremia Discharge Instructions Interventions: ED Discharge Assessment Last Done: 04/27/21 16:47 Forms Stand Alone Forms: My [facility] Prescriptions Prescriptions: No Action atorvastatin 10 mg tablet 10 mg PO QAM RF: 0 acetaminophen [Tylenol Extra Strength] 500 mg Tablet 1,000 mg PO Q6H PRN (Reason: Pain) RF: 0 pantoprazole 20 mg tablet,delayed release (DR/EC) 20 mg PO QAM RF: 0 levothyroxine 50 mcg tablet 50 mcg PO QAM RF: 0 ferrous sulfate 325 mg (65 mg iron) tablet 352 mg PO QAM RF: 0 gabapentin 300 mg capsule 600 mg PO TID RF: 0 folic acid 1 mg tablet 1 mg PO QAM RF: 0 zolpidem [Ambien] 5 mg Tablet 5 mg PO HS PRN (Reason: Insomnia) RF: 0 sertraline 50 mg tablet 50 mg PO QAM RF: 0 oxycodone 5 mg Tablet 5 mg PO BID PRN (Reason: Pain) RF: 0 doxycycline hyclate 100 mg capsule 100 mg PO BID RF: 0 methocarbamol 500 mg tablet 1,000 mg PO QID RF: 0 benzonatate 100 mg capsule 100 mg PO Q8 PRN (Reason: Cough) RF: 0 Referrals Referrals: Harrison Mcneil MD [Primary Care Provider] -
--- NOTE | 2021-04-27 17:28 | Anesthesiology Consultation ---
Date of Service April 27, 2021 Assessment & Plan (1) Encounter for pre-operative examination: Chart Review Chart Review: Acceptable Risk for Surgery and Patient NOT seen in Pre Admission Testing Consults Requested none ASA [id number] Proposed Anesthesia Anesthesia Type: General Regional Regional Laterality: Left Site: Popliteal and Adductor Canal Additional Notes Pt hyponatremic but with open fracture requiring emergent intraoperative repair. History Surgery Operation Date: 04/27/21 14:40 Proposed Procedures p Left Open Reduction Internal Fixation Ankle Fractire, I&D Trimalleolar Fracture - Sina Samaniego DO Height/Weight Height: 6 ft 2 in Weight: 150 kg Allergies Allergy/AdvReac Type Severity Reaction Status Date / Time egg Allergy Anaphylaxis Unverified 04/27/21 15:49 peanut Allergy Anaphylaxis Unverified 04/27/21 15:49 Medications Home Medications Medication Instructions Recorded Confirmed Last Taken acetaminophen 500 mg tablet 1,000 mg PO Q6H PRN 03/17/19 04/27/21 03/17/19 10:00 (Tylenol Extra Strength) atorvastatin 10 mg tablet 10 mg PO QAM 03/17/19 04/27/21 03/16/19 ferrous sulfate 325 mg (65 mg 352 mg PO QAM 03/17/19 04/27/21 03/16/19 iron) tablet folic acid 1 mg tablet 1 mg PO QAM 03/17/19 04/27/21 03/16/19 gabapentin 300 mg capsule 600 mg PO TID 03/17/19 04/27/21 03/16/19 levothyroxine 50 mcg tablet 50 mcg PO QAM 03/17/19 04/27/21 03/16/19 oxycodone 5 mg tablet 5 mg PO BID PRN 03/17/19 04/27/21 03/17/19 08:00 pantoprazole 20 mg tablet,delayed 20 mg PO QAM 03/17/19 04/27/21 03/16/19 release sertraline 50 mg tablet 50 mg PO QAM 03/17/19 04/27/21 03/16/19 zolpidem 5 mg tablet (Ambien) 5 mg PO HS PRN 03/17/19 04/27/21 03/16/19 benzonatate 100 mg capsule 100 mg PO Q8 PRN 04/27/21 04/27/21 Unknown doxycycline hyclate 100 mg capsule 100 mg PO BID 04/27/21 04/27/21 Unknown methocarbamol 500 mg tablet 1,000 mg PO QID 04/27/21 04/27/21 Unknown Active Medications Generic Name Dose Route Start Last Admin Trade Name Je PRN Reason Stop Dose Admin Fentanyl Citrate 50 mcg 04/27/21 16:27 04/27/21 16:36 Fentanyl Citrate 100 Mcg/2 Ml Vial IV 05/11/21 16:26 50 mcg Q15M PRN Administration Pain NPO Date Last Intake of Fluids: 04/27/21 Time Last Intake of Fluids: 12:00 Last Intake of Fluids Comment: 1 shields light Date Last Intake of Solids: 04/26/21 Time Last Intake of Solids: 16:00 Past Medical History Medical History Depression GERD (gastroesophageal reflux disease) HLD (hyperlipidemia) HTN (hypertension) Hypothyroidism Exercise / Class Metabolic Activity III < 4 Walking/Shop/Light housework Negative for chest pain or shortness of breath. Past Family History Family History Father Pancreatic cancer Mother Alcohol abuse Tobacco abuse Denies family history of Diabetes Coronary heart disease Hypertension Past Surgical History Surgical History Hx of cervical spine surgery X3 First in 2000 Second 12/22/2018 at [facility] Revision 01/05/2019 at [facility] C2-T2 laminectomy and fusion Past Anesthesia History No Hx of Anesthesia Complications History of PONV No Hx of PONV Social History Smoking Status: Never smoker Hx Alcohol Use: Yes (Patient states that he has a sixpack of beer every other day or so.) Alcohol type: beer Hx Substance Use: No Review of Systems Denies n/v Left ankle pain Physical Exam Vital Signs Last Vital Signs Temp 36.3 C L 04/27/21 17:01 Pulse 68 04/27/21 17:01 Resp 20 04/27/21 17:01 BP 116/60 04/27/21 17:01 Pulse Ox 95 04/27/21 17:01 Constitutional + morbidly obese ENMT Mouth: no TMJ abnormality and oral opening not small Thyromental Distance: > or= 3.5 Finger Breadths Mallampati Class: II Neck normal visual inspection and + limited neck extension Respiratory normal respiratory effort Auscultation: lungs clear to auscultation bilaterally Cardiovascular Rate/Rhythm: regular rate and regular rhythm Heart Sounds: no murmur Neurologic moves all extremities Psychiatric Orientation: alert and oriented x 3 Testing Laboratory Results 04/27/21 15:48 04/27/21 15:48 Electrocardiogram Date: 04/27/21 Findings: + NSR @ (71) incomplete RBBB, nonspecific ST abnormality
[2021-04-27] MEDS ORDERED: BUPIVACAINE 0.25% 30 ML VIAL ONE (17:32)
[2021-04-27] MEDS ORDERED: ROPIVACAINE 0.5% 5 MG/ML 30 ML VIAL ONE (17:32)
[2021-04-27] MEDS ORDERED: ONDANSETRON INJ 2 MG/ML 2 ML VIAL IV PRN ×2 (18:16→21:29)
[2021-04-27] MEDS ORDERED: HYDROmorphone INJ 1 MG/ML SYRINGE IV PRN (18:16)
[2021-04-27] MEDS ORDERED: PROMETHAZINE HCL 12.5 MG in SODIUM CHLORIDE 0.9% 50 ML IV PRN (18:16)
[2021-04-27] MEDS ORDERED: ePHEDrine sulfate 50 MG/ML AMP IV PRN (18:16)
[2021-04-27] MEDS ORDERED: ATROPINE SULFATE 0.1 MG/ML 10ML SYR IV PRN (18:16)
[2021-04-27] MEDS ORDERED: GLYCOPYRROLATE 0.2 MG/ML VIAL ONE (19:32)
[2021-04-27] MEDS ORDERED: NEOSTIGMINE METHYLSULFATE 1 MG/ML 10ML VIAL ONE (19:32)
--- NOTE | 2021-04-27 20:11 | Fluoroscopy Report ---
FL ankle LT 2V CLINICAL HISTORY: Open fracture left ankle. External fixator. COMPARISON STUDY: Left ankle 04/27/2021. FLUOROSCOPY TIME: 37 seconds. FINDINGS: 5 fluoroscopic spot images of the left ankle demonstrate an external fixator extending from the proximal tibia to the hindfoot. This traverses the displaced left ankle fracture. Soft tissue la ceration also noted at the left ankle. IMPRESSION: Fluoroscopic assistance provided for external fixation of a left ankle fracture. ACT 112: Negative or not required by law. Electronically signed by: Kwesi Patel M.D. 04/27/2021 8:10 PM
--- NOTE | 2021-04-27 20:16 | Post Operative Brief Note ---
Immediate Post Op Note v1 Date of Surgery April 27, 2021 Pre & Post Diagnosis Operation Date: 04/27/21 14:40 Pre-Op Diagnosis: Grade 2 open fracture dislocation left ankle, open laceration 22 cm x 8 cm surface area left ankle, gross contamination with soiled medial malleolus, rupture medial deltoid ligament, syndesmotic disruption Post-Op Diagnosis: Grade 2 open fracture dislocation left ankle, open laceration 22 cm x 8 cm surface area left ankle, gross contamination with soiled medial malleolus, rupture medial deltoid ligament, syndesmotic disruption I identified the patient and participated in the time-out.: Yes Procedure Operation Date: 04/27/21 14:40 Actual Procedures p Irrigation and Debridement Complex Laceration 22cm x 8cm with loose primary closure, Left Open Reduction application Synthes external Fixation grade 2 open trimalleolar ankle Fracture Dislocation, irrigation and debridement grade 2 open fracture dislocation ankle with complex laceration including skin, dermis, fascia, tibialis anterior muscle, tendon and medial deltoid ligamentSina Samaniego DO Surgeon Sina Samaniego DO Curing Room Supervisor Alexis Moya PA-C Estimated Blood Loss 30 Findings Consistent with Post-Op Diagnosis Drains Doe Catheter Anesthesia Type General Regional Complications none Disposition Accompanied Patient To Recovery: Yes
[2021-04-27] MEDS ORDERED: NALOXONE HCL 0.4 MG/1 ML VIAL/CARP IV PRN (21:29)
[2021-04-27] MEDS ORDERED: bisacodyL 10 MG SUPP PR PRN (21:29)
[2021-04-27] MEDS ORDERED: SODIUM CHLORIDE 0.9% 1000ML 1,000 ML IV SCH (21:29)
--- NOTE | 2021-04-27 21:57 | Operative Report (OR) ---
DATE OF PROCEDURE: 04/27/2021. PREOPERATIVE DIAGNOSES: 1. Left ankle grade II open bimalleolar ankle fracture dislocation. 2. Open laceration, left ankle, 22 x 8 cm surface area. 3. Gross contamination with soil abutting the medial malleolus. 4. Rupture of the medial deltoid ligament. 5. Syndesmotic disruption. POSTOPERATIVE DIAGNOSES: 1. Left ankle grade II open bimalleolar ankle fracture dislocation. 2. Open laceration, left ankle, 22 x 8 cm surface area. 3. Gross contamination with soil abutting the medial malleolus. 4. Rupture of the medial deltoid ligament. 5. Syndesmotic disruption. PROCEDURES: 1. Irrigation and debridement, complex laceration, 22 x 8 cm with loose primary closure. 2. Left open reduction, application of Synthes large external fixation, grade II open bimalleolar an kle fracture dislocation. 3. Irrigation and debridement, grade II open fracture dislocation of the ankle with complex lacerati on including skin, dermis, fascia, tibialis anterior muscle, tendon and medial deltoid ligament. SURGEON: Sina Samaniego DO. SLOPE HOIST OPERATOR: Alexis Moya PA-C who was present for patient positioning, sterile prep and drape, management of retractors and instruments. He was present through the critical portions of the case in cluding wound closure, application of sterile dressing and transport of the patient to recovery. ANESTHESIA: General, regional. SPECIMENS: None. DRAINS: Multiple 1-inch iodoform gauze drains. COMPLICATIONS: None. BLOOD LOSS: 30 mL, active. PERTINENT HISTORY: This is a 60-year-old gentleman who was going to step out of his car cyclin g, slipped on some unseen ice and felt and heard a traumatic tear and pop of his left ankle, noted th at he had fractured his ankle. The ankle was approximately 90 degrees from its normal axis, complex open laceration with significant bleeding. He was unable to control bleeding, unable to ambulate. Michelle cox was transported by EMS after they had performed a tamponade and tourniquet application in the field . The patient was then transferred to [facility], was evaluated, used some topical chemical cautery and tourniquets to stabilize bleeding. Orthopedics was consulted. The patient was then scheduled for surgery as indicated. All potential risks, benefits, complications, alternatives, rehab potential for incomplete relief of symptoms, need for further surgery, DVT, PE, , persistent pain, swelling, scarring, weakness, ne urovascular injury, wound complications, hardware failure, nonunion, malunion, further bone fracture or possibility of amputation due to catastrophic infection was discussed with the patient. The patie nt decided to proceed with the procedure as indicated. DESCRIPTION OF PROCEDURE: The patient was administered a popliteal block in the preoperative holding area, and then he was taken to the operative suite and placed supine on the operating table. After review of consent and identification of proper operative site, the patient was anesthetized, LMA was placed. Tourniquet was placed high on the left thigh over cast padding. Left lower extremity was st erilely prepped and draped in usual fashion. Left lower extremity was then elevated, and tourniquet inflated to 350 mmHg. There was no exsanguination due to the nature of the open fracture dislocation . First, the pulsatile lavage 6 liters with Ancef additive was then used to lavage the ankle and comple x laceration. A sterile Betadine scrub brush was used to scrub the soft tissues with the soft foam b roberson to remove any gross debris. There was noted to be a gross debris along the medial malleolus ind icative of soil. There was no obvious feces or animal droppings in the vicinity of the injury site p er the patient; therefore, this was seen to be soil. The patient attempted to walk on the ankle at le ast once. Once all gross debris was scrubbed free, lavage was then used to remove the extra Betadine solution from the ankle joint and the soft tissues. A dorsal anterior vein was encountered and this was crossclamped with small hemostat and then a 2-0 silk tie was used to tie off the vein. The end w as cauterized. Next, the open ankle fracture dislocation was then reduced into near anatomic position using manual t raction and reduction under live fluoroscopic assistance. Once stabilized, noted that the syndesmosi s had been disrupted as well as the medial deltoid was completely ruptured. The tibialis anterior an d posterior tibial tendons had to be manipulated around the bony structures to facilitate reduction. Next, with reduction held in place, sharp dissection was performed for any devitalized tissue, which was minimal around the skin edges including skin, dermis, fascia, tibialis anterior muscle, which was partially torn and along the posterior tibial tendon, which had been abraded by dislocation. Next, the medial deltoid was also sharply debrided the area where gross debris was noted. This was r emoved. After sharp debridement had been completed, decision was made to avoid any internal fixation . Therefore, external fixator large Synthes ex-fix was then opened and a large calcaneal transfixion pin was placed [id number] from the medial to the lateral aspect of the calcaneus under live fluoroscopic assistance. The sharpened end of the pin was then removed with the mat cutter and the n covered with plastic caps. Next, the anterior tibial pins were then placed in the anterior tibia under live fluoroscopic assista nce using a small stab incision with a 15 blade scalpel. The alignment jig was utilized under live f luoroscopic assistance to achieve bicortical purchase and fixation with pins. Next, large external fixator was applied using the large ex-fix universal clamps. The ankle was held in neutral alignment under live fluoroscopic assistance allowing for tightening of the large universa l clamps. Next, the large 22 x 8 cm complex laceration was then loosely closed using buried interrupted 2-0 Anil ryl and 2-0 nylon sutures. Loose closure was performed with placement of several large 1-inch iodofo rm gauze drains. The skin was closed using 2-0 nylon and then a sterile compressive dressing was nandini lied after radiographs were obtained, noting near anatomic alignment and reduction with the large ext ernal fixator. The soft tissue injuries were covered with soft tissue dressing including Jay wraps. The tourniquet was released, bleeding had been completely controlled. The patient was awakened and taken to recovery in stable condition. Toes were noted to be pink and warm with brisk cap refill approximately 2 seconds. Dorsalis pedis wa s sluggish and the posterior tibial artery was noted to be 1+/4. The patient was taken to recovery i n stable condition. Job ID: [id number]
--- NOTE | 2021-04-27 22:13 | Anesthesiology Progress Note ---
Date of Service April 27, 2021 Anesthesia Post Procedure Vital Signs Vital Signs: Temp Pulse Pulse Pulse Pulse Resp BP 04/27/21 21:55 36.5 C 84 20 04/27/21 21:25 37.0 C 86 20 04/27/21 21:10 36.4 C L 79 16 04/27/21 21:00 80 16 04/27/21 20:50 81 16 04/27/21 20:40 36.4 C L 85 15 04/27/21 20:30 83 17 04/27/21 20:20 83 17 04/27/21 20:14 36.0 C L 90 22 04/27/21 17:01 36.3 C L 68 20 04/27/21 16:47 66 20 106/71 04/27/21 16:30 64 22 04/27/21 16:27 62 22 04/27/21 16:00 62 22 04/27/21 15:41 36.5 C 69 22 118/83 04/27/21 15:37 73 20 BP BP Pulse Ox 04/27/21 21:55 101/68 96 04/27/21 21:25 109/70 97 04/27/21 21:10 107/70 94 04/27/21 21:00 108/75 95 04/27/21 20:50 111/70 94 04/27/21 20:40 114/75 98 04/27/21 20:30 113/75 100 04/27/21 20:20 124/76 100 04/27/21 20:14 130/78 100 04/27/21 17:01 116/60 95 04/27/21 16:47 98 04/27/21 16:30 100/58 L 97 04/27/21 16:27 85/52 L 97 04/27/21 16:00 104/59 L 95 04/27/21 15:41 100 04/27/21 15:37 119/85 100 Pain Intensity Ankle: Pain Intensity: 4 Left Ankle: Pain Intensity: 8 Transfer of Care Handoff Completed per policy Notes Mental Status: alert / awake / arousable and participated in evaluation Patient Amnestic to Procedure: Yes Nausea / Vomiting: adequately controlled Pain: adequately controlled Airway Patency, RR, SpO2: stable & adequate BP & HR: stable & adequate Hydration State: stable & adequate Anesthetic Complications: no major complications apparent and Pt Satisfied with anesthetic care Notes: Block is functioning well.
[2021-04-27] MEDS: cefTRIAXone SODIUM 2,000 MG in DEXTROSE 5% 50 ML IV SCH (22:17)
[2021-04-27] MEDS: HYDROmorphone INJ 0.5 MG/0.5 ML SYR IV PRN (22:17)
[2021-04-27] MEDS: ASPIRIN 81 MG ECTAB PO SCH (23:02)
[2021-04-27] MEDS: DOCUSATE SODIUM 100 MG CAP PO SCH (23:03)
[2021-04-27] MEDS: METHOCARBAMOL 500 MG TABLET PO SCH (23:04)
[2021-04-27] MEDS: GABAPENTIN 300 MG CAP PO SCH (23:04)
[2021-04-28] MEDS: ZOLPIDEM TARTRATE 5 MG TAB PO PRN (00:34)
[2021-04-28] MEDS: oxyCODONE HCL IR 5 MG TAB (IMMEDIATE RELEASE) PO PRN ×4 (04:03→22:35)
[2021-04-28] MEDS: LEVOTHYROXINE SODIUM 50 MCG TABLET PO SCH (06:09)
[2021-04-28 06:45] LABS: Hematocrit (blood only) 31.8 % (42-52); Mean Corpuscular Hemoglobin 32.8 pg (25-34); Mean Corpuscular Hgb Conc 34.6 g/dL (32-36); Mean Corpuscular Volume 94.9 fL (80-100); Mean Platelet Volume 9.1 fL (7.4-10.4); Platelet Count 160 K/uL (130-400); RDW Coefficient of Variation 13.6 % (11.5-14.5); RDW Standard Deviation 47.4 fL (36.4-46.3); Red Blood Count 3.35 M/uL (4.7-6.1); White Blood Count 7.77 K/uL (4.8-10.8)
[2021-04-28 07:08] LABS: BUN Creatinine Ratio 10.1 (10-20); Calcium 7.7 mg/dl (8.5-10.1); Creatinine Clr Calc Pharmacy 143.4 ml/min; Est GFR (African American) 108.5 ml/min; Est GFR (Non-African American) 93.6 ml/min; Potassium 4.9 mmol/L (3.5-5.1)
[2021-04-28] MEDS: MULTIVITAMIN TAB PO SCH (07:37)
[2021-04-28] MEDS: ASPIRIN 81 MG ECTAB PO SCH ×2 (07:37→20:49)
[2021-04-28] MEDS: METHOCARBAMOL 500 MG TABLET PO SCH ×4 (07:37→20:49)
[2021-04-28] MEDS: PANTOprazole 40 MG TAB PO SCH (07:37)
[2021-04-28] MEDS: SERTRALINE HCL 50 MG TABLET PO SCH (07:37)
[2021-04-28] MEDS: DOCUSATE SODIUM 100 MG CAP PO SCH ×2 (07:37→20:49)
[2021-04-28] MEDS: FERROUS SULFATE 325 MG TAB PO SCH (07:38)
[2021-04-28] MEDS: GABAPENTIN 300 MG CAP PO SCH ×3 (07:38→20:49)
[2021-04-28] MEDS: ATORVASTATIN 10 MG TAB PO SCH (07:38)
[2021-04-28] MEDS: FOLIC ACID 1 MG TAB PO SCH (07:38)
--- NOTE | 2021-04-28 08:49 | Electrocardiogram Report ---
Test Reason : Blood Pressure : / mmHG Vent. Rate : 071 BPM Atrial Rate : 071 BPM P-R Int : 124 ms QRS Dur : 106 ms QT Int : 438 ms P-R-T Axes : 046 029 050 degrees QTc Int : 475 ms Poor data quality, interpretation may be adversely affected Normal sinus rhythm Incomplete right bundle branch block Nonspecific ST abnormality Abnormal ECG When compared with ECG of 17-MAR-2019 12:02, Nonspecific T wave abnormality no longer evident in Inferior leads Confirmed by Mich Tran ([id number]) on 04/28/2021 8:48:47 AM Referred By: REFERRED SELF Confirmed By:Sarbjit Tran
[2021-04-28] MEDS: cefTRIAXone SODIUM 2,000 MG in DEXTROSE 5% 50 ML IV SCH ×2 (10:04→22:36)
--- NOTE | 2021-04-28 10:24 | Orthopedic Progress Note ---
Date of Service April 28, 2021 Assessment & Plan (1) Open fracture dislocation of left ankle: Plan: POD 1 s/p I/D and closure over iodiform drains, open fx dislocation left ankle; application ex fix PT/OT protocols. NWB on LLE. DVT prophylaxis - ASA bid, SCD and MARY on the opposite leg Pain management is written. Plan for 48 hours of IV antibx due to contamination of soft tissue and bone at time of accident. (Pt showed pictures of his tibia and soft tissues in his gravel driveway with dirt and grass noted. Admission and Anticipated Discharge Date Admission Date: April 27, 2021 Subjective POD 1 Pt sitting up in chair at bedside. PT present to take him through his PT session. Having some pain but appears comfortable. States pain meds are helping. Has not urinated since yesterday. Denies abdominal pain/distention. No other concerns currently. Physical Exam Physical Exam: Dressings with some drainage noted over the ankle portion. Dressings taken down. All packing removed. Wounds appearing benign. Pin sites benign. Good dorsalis pedis pulse. Cap refill < 2 seconds. Mild tingling in toes which he state he has had. Moving the great toe well but less ROM of 2-4 toes. Mild rom note of 5th. Foot pink and warm. Results & Data ([facility]) Vital Signs (Past 12 Hours) Vital Signs Temp Pulse Resp BP Pulse Ox 04/28/21 07:58 36.4 C L 92 H 18 128/84 92 04/28/21 04:00 36.9 C 98 H 20 118/73 100 04/28/21 00:29 36.8 C 91 H 14 100/71 99 04/27/21 23:29 36.4 C L 88 18 100/66 95 04/27/21 22:25 37 C 84 22 96/64 L 95 Laboratory Results Laboratory Results WBC 7.77 K/uL (4.8-10.8) 04/28/21 05:41 RBC 3.35 M/uL (4.7-6.1) L 04/28/21 05:41 Hgb 11.0 g/dL (14.0-18.0) L D 04/28/21 05:41 Hct 31.8 % (42-52) L 04/28/21 05:41 MCV 94.9 fL (80-100) 04/28/21 05:41 MCH 32.8 pg (25-34) 04/28/21 05:41 MCHC 34.6 g/dL (32-36) 04/28/21 05:41 RDW Std Deviation 47.4 fL (36.4-46.3) H 04/28/21 05:41 RDW Coeff of Kamaljit 13.6 % (11.5-14.5) 04/28/21 05:41 Plt Count 160 K/uL (130-400) 04/28/21 05:41 MPV 9.1 fL (7.4-10.4) 04/28/21 05:41 Immature Gran % (Auto) 0.0 % 04/27/21 15:48 Neut % (Auto) 62.7 % 04/27/21 15:48 Lymph % (Auto) 28.2 % 04/27/21 15:48 Brantley % (Auto) 7.3 % 04/27/21 15:48 Eos % (Auto) 1.5 % 04/27/21 15:48 Baso % (Auto) 0.3 % 04/27/21 15:48 Neut # (Auto) 3.78 K/uL (1.4-6.5) 04/27/21 15:48 Lymph # (Auto) 1.70 K/uL (1.2-3.4) 04/27/21 15:48 Brantley # (Auto) 0.44 K/uL (0.11-0.59) 04/27/21 15:48 Eos # (Auto) 0.09 K/uL (0-0.5) 04/27/21 15:48 Baso # (Auto) 0.02 K/uL (0-0.2) 04/27/21 15:48 Immature Gran # (Auto) 0.00 K/uL (0.00-0.02) 04/27/21 15:48 Sodium 128 mmol/L (136-145) L 04/28/21 05:41 Potassium 4.9 mmol/L (3.5-5.1) 04/28/21 05:41 Chloride 98 mmol/L (98-107) 04/28/21 05:41 Carbon Dioxide 23 mmol/L (21-32) 04/28/21 05:41 Anion Gap 7 (3-11) 04/28/21 05:41 BUN 9 mg/dl (6-23) 04/28/21 05:41 Creatinine 0.89 mg/dl (0.6-1.4) 04/28/21 05:41 Est Cr Clr Drug Dosing 143.4 ml/min 04/28/21 05:41 Est GFR ( Amer) 108.5 ml/min 04/28/21 05:41 Est GFR (Non-Af Amer) 93.6 ml/min 04/28/21 05:41 BUN/Creatinine Ratio 10.1 (10-20) 04/28/21 05:41 Glucose 107 mg/dl (70-99(Fasting)) H 04/28/21 05:41 Calcium 7.7 mg/dl (8.5-10.1) L 04/28/21 05:41 Total Bilirubin 0.9 mg/dl (0.2-1.0) 04/27/21 15:48 AST 53 U/L (13-39) H 04/27/21 15:48 ALT 40 U/L (7-52) 04/27/21 15:48 Alkaline Phosphatase 100 U/L (34-104) 04/27/21 15:48 Total Protein 6.8 gm/dl (6.0-8.3) 04/27/21 15:48 Albumin 4.0 gm/dl (3.4-5.0) 04/27/21 15:48 Globulin 2.8 gm/dl (2.5-4.0) 04/27/21 15:48 Albumin/Globulin Ratio 1.4 (0.9-2) 04/27/21 15:48 SARS-CoV-2, RNA, NAAT NEGATIVE (NEGATIVE) 04/27/21 15:18 Impressions Ankle X-Ray 04/27/21 16:33 FL ankle LT 2V CLINICAL HISTORY: Open fracture left ankle. External fixator. COMPARISON STUDY: Left ankle 04/27/2021. FLUOROSCOPY TIME: 37 seconds. FINDINGS: 5 fluoroscopic spot images of the left ankle demonstrate an external fixator extending from the proximal tibia to the hindfoot. This traverses the displaced left ankle fracture. Soft tissue laceration also noted at the left an kle. IMPRESSION: Fluoroscopic assistance provided for external fixation of a left ankle fracture. ACT 112: Negative or not required by law. Electronically signed by: Kwesi Patel M.D. 04/27/2021 8:10 PM
[2021-04-28] MEDS: SODIUM CHLORIDE 0.9% 1000ML 1,000 ML IV SCH ×2 (11:41→23:54)
[2021-04-28] MEDS: ACETAMINOPHEN 500 MG TAB PO PRN (20:55)
[2021-04-29] MEDS: ZOLPIDEM TARTRATE 5 MG TAB PO PRN ×2 (00:35→22:00)
[2021-04-29 06:02] LABS: BUN Creatinine Ratio 9.9 (10-20); Calcium 7.6 mg/dl (8.5-10.1); Creatinine Clr Calc Pharmacy 105.5 ml/min; Est GFR (African American) 75.5 ml/min; Est GFR (Non-African American) 65.1 ml/min
[2021-04-29] MEDS: LEVOTHYROXINE SODIUM 50 MCG TABLET PO SCH (06:07)
[2021-04-29 06:18] LABS: Hematocrit (blood only) 22.5 % (42-52); Hemoglobin 7.5 g/dL (14.0-18.0); Mean Corpuscular Hgb Conc 33.3 g/dL (32-36); Mean Platelet Volume 8.5 fL (7.4-10.4); Platelet Count 101 K/uL (130-400); RDW Coefficient of Variation 13.3 % (11.5-14.5); RDW Standard Deviation 45.6 fL (36.4-46.3); Red Blood Count 2.42 M/uL (4.7-6.1); White Blood Count 4.81 K/uL (4.8-10.8)
[2021-04-29] MEDS: PANTOprazole 40 MG TAB PO SCH (08:43)
[2021-04-29] MEDS: GABAPENTIN 300 MG CAP PO SCH ×3 (08:43→19:57)
[2021-04-29] MEDS: ASPIRIN 81 MG ECTAB PO SCH ×2 (08:43→19:56)
[2021-04-29] MEDS: SERTRALINE HCL 50 MG TABLET PO SCH (08:43)
[2021-04-29] MEDS: FERROUS SULFATE 325 MG TAB PO SCH (08:43)
[2021-04-29] MEDS: METHOCARBAMOL 500 MG TABLET PO SCH ×4 (08:44→19:55)
[2021-04-29] MEDS: FOLIC ACID 1 MG TAB PO SCH (08:44)
[2021-04-29] MEDS: MULTIVITAMIN TAB PO SCH (08:44)
[2021-04-29] MEDS: ATORVASTATIN 10 MG TAB PO SCH (08:44)
--- NOTE | 2021-04-29 08:44 | Consultation ---
Date of Consultation April 29, 2021 Assessment & Plan (1) Hyponatremia: Serus osm is <280. He appears euvolemic to slightly dry. Urine Na is very low c/w solute/salt deficiency. Urine Osm is very high - this is appropriate concentrating of the urine due to recent volume depletion from blood loss. I can't exclude a small element of his decompensated hypothyroidism contributing. I suspect that his hyponatremia is chronic as he has no altered mentation, lethargy, etc despite the low sodium. This is unlikely to be beer potomania given the high urine osm. However, his heavy alcohol consumption is likely contributing to his overall poor diet and poor solute intake. Labs/urine studies are not c/w SIADH from his SSRI use. He does not take diuretics. Plan - * start NaCl 1gm BID * repeat Na level this evening * repeat BMP in am * increase synthroid to 75mcg/day given his high TSH * defer on cortisol testing (2) Hypothyroidism: TSH is high at 7. He reports compliance with his synthroid. Will increase to 75mcg/day. Repeat TSH in 6 weeks as outpatient. (3) Alcohol dependence: Thus far no signs of etoh withdrawal. Cont folate supplementation. Cont MVI. Add thiamine 200mg BID. He takes gabapentin chronically at home presumably for his neuropathy. Watch carefully for signs/symptoms of etoh withdrawal and institute the etoh withdrawal protocol as necessary. (4) Morbid obesity with BMI of 40.0-44.9, adult: BMI 45 (5) Open fracture dislocation of left ankle: POD #2 s/p extensive surgery for such by Dr Samaniego. Defer all management to orthopedics. (6) GERD (gastroesophageal reflux disease): Continue PPI daily (7) Depression: Continue sertraline daily (8) HLD (hyperlipidemia): Continue statin daily (9) HTN (hypertension): This is listed as a diagnosis in the EMR but he is not on meds for such. BPs are stable/controlled. Monitor. (10) Acute blood loss anemia: Significant blood loss from bleeding from his wound and perioperative blood loss. Defer transfusion decision to orthopedics. I would be in favor of IV venofer while here given the extent of his blood loss. Agree with repeat cbc am. DVT proph - per ortho - asa 81mg BID Per the external med rec history he is on ambien + methocarbamol chronically at home - these are being continued. Thank you for this consult. We will follow with you. History of Present Illness Requesting Physician: Sina Samaniego DO Reason for Consultation: hyponatremia Attending Physician: Sina Samaniego DO History of Present Illness 60yo male with h/o hypothyroidism, heavy alcohol usage on daily basis, GERD, peripheral neuropathy, HTN, and morbid obesity presented to [facility] on 04/27/21 with a severe fracture of his left ankle after slipping on ice while getting out of his car. Upon arrival to [facility] the ankle had obvious deformity. There was a considerable amount of bleeding from the ankle at the time of presentation. Records indicate that he received Adacel IM x 1 due to gross contamination of the ankle wound. On the evening of 04/27/21 Dr Carlos Samaniego took Mr Carreon to the OR. The following was seen - 1. Left ankle grade II open bimalleolar ankle fracture dislocation. 2. Open laceration, left ankle, 22 x 8 cm surface area. 3. Gross contamination with soil abutting the medial malleolus. 4. Rupture of the medial deltoid ligament. 5. Syndesmotic disruption. Dr Samaniego performed extensive surgery on the left ankle and there is an external fixation device in place. Of note - patient had a sodium level of 127 upon admission on 04/27/21. During my consultation the patient's only complaint was that of left ankle pain. He reports eating well while here. Denies having a bowel movement, but is passing flatus. Denies poor fluid intake, vomiting or diarrhea. Denies salt cravings. Denies dizziness or lightheadedness. Denies mental fogginess/confusion/lethargy. He does admit to heavy alcohol consumption, imbibing 6-12 beers every day at home. He denies a prior h/o alcohol withdrawal. Nutrition at home is poor Allergies Allergy/AdvReac Type Severity Reaction Status Date / Time egg Allergy Anaphylaxis Unverified 04/27/21 15:49 peanut Allergy Anaphylaxis Unverified 04/27/21 15:49 Home Medications Medication Instructions Recorded Confirmed Type acetaminophen 500 mg tablet 1,000 mg PO Q6H PRN 03/17/19 04/27/21 History (Tylenol Extra Strength) atorvastatin 10 mg tablet 10 mg PO QAM 03/17/19 04/27/21 History ferrous sulfate 325 mg (65 mg 352 mg PO QAM 03/17/19 04/27/21 History iron) tablet folic acid 1 mg tablet 1 mg PO QAM 03/17/19 04/27/21 History gabapentin 300 mg capsule 600 mg PO TID 03/17/19 04/27/21 History levothyroxine 50 mcg tablet 50 mcg PO QAM 03/17/19 04/27/21 History oxycodone 5 mg tablet 5 mg PO BID PRN 03/17/19 04/27/21 History pantoprazole 20 mg tablet,delayed 20 mg PO QAM 03/17/19 04/27/21 History release sertraline 50 mg tablet 50 mg PO QAM 03/17/19 04/27/21 History zolpidem 5 mg tablet (Ambien) 5 mg PO HS PRN 03/17/19 04/27/21 History benzonatate 100 mg capsule 100 mg PO Q8 PRN 04/27/21 04/27/21 History doxycycline hyclate 100 mg capsule 100 mg PO BID 04/27/21 04/27/21 History methocarbamol 500 mg tablet 1,000 mg PO QID 04/27/21 04/27/21 History Patient History Medical History Depression GERD (gastroesophageal reflux disease) HLD (hyperlipidemia) HTN (hypertension) Hypothyroidism Surgical History Hx of cervical spine surgery X3 First in 2000 Second 12/22/2018 at [facility] Revision 01/05/[address] [facility] C2-T2 laminectomy and fusion Family History Father , age 64 Pancreatic cancer Mother , age 82 Alcohol abuse Tobacco abuse Congestive heart failure Denies family history of Diabetes Coronary heart disease Hypertension Social History (Updated 04/29/21 @ 21:02 by Cristopher Garcia) Smoking Status: Never smoker Second Hand Exposure: No; Do You Dip or Chew Tobacco: No; Tobacco Cessation Education Requested by Patient: No Hx Alcohol Use: Yes Alcohol type: beer Alcohol type Comment: 6-12 beers/day Hx Substance Use: No Preferred Language: Romanian Communication Ability: Effective 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 Beliefs That Will Affect Care: None marital status: Current Living Situation: Alone Current Living Situation Comment: lives in [place] current occupational status: employed 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 How many Children do You have: 0 Other Information That Helps Us Care for You: No Feels Safe at Home: Yes Safety Concerns: Feels Safe At This Time Assistive Devices: Glasses and Walker Review of Systems Review of Systems: gen - no fevers, chills or recent weight gain/loss eyes - no visual changes HENT - no sore throat, congestion, or dysphagia neck - denies pain CV - no chest pain pulm - no cough or dyspnea GI - no abd pain, nausea or emesis; no bowel movement yet - no dysuria musculo - left ankle pain skin - no rashes psych - denies depression neuro - chronic numbness of hands/feet endo - denies diabetes lymph - no swollen glands any location Physical Exam Physical Exam: gen - morbidly obese, pleasant, NAD; no signs of etoh withdrawal skin - pallor, turgor wnl eyes - PERRL HENT - mouth with MMM neck - no JVD, no lymphadenopathy heart - RRR, s1 s2 lungs - CTA b/l abd - soft NT ND BS+ ext - left ankle/foot in external fixation device and multiple dressings; pulses right foot 2+ neuro - DTRs 2+ upper exts; strength upper exts 5/5; no tremor psych - a/o x 3 Results & Data ([facility]) Vital Signs (Past 12 Hours) Vital Signs Temp Pulse Resp BP BP Pulse Ox 04/29/21 07:22 37.1 C 90 18 125/72 99 04/28/21 23:08 37.4 C 95 H 20 105/88 95 Laboratory Results Laboratory Results - last 24 hr 04/28/21 04/29/21 04/29/21 11:33 05:05 05:05 WBC 4.81 RBC 2.42 L Hgb 7.5 L D Hct 22.5 L MCV 93.0 MCH 31.0 MCHC 33.3 RDW Std Deviation 45.6 RDW Coeff of Kamaljit 13.3 Plt Count 101 L MPV 8.5 Sodium 127 L Potassium 4.0 Chloride 99 Carbon Dioxide 24 Anion Gap 4 BUN 12 Creatinine 1.21 D Est Cr Clr Drug Dosing 105.5 Est GFR ( Amer) 75.5 Est GFR (Non-Af Amer) 65.1 BUN/Creatinine Ratio 9.9 L Glucose 114 H Osmolality Calcium 7.6 L TSH Total T3 41 L 04/29/21 04/29/21 04/29/21 11:57 11:57 17:29 WBC RBC Hgb Hct MCV MCH MCHC RDW Std Deviation RDW Coeff of Kamaljit Plt Count MPV Sodium 129 L Potassium Chloride Carbon Dioxide Anion Gap BUN Creatinine Est Cr Clr Drug Dosing Est GFR ( Amer) Est GFR (Non-Af Amer) BUN/Creatinine Ratio Glucose Osmolality 274 L Calcium TSH 7.249 H Total T3 PG Care Time/CCT Total # of Minutes Spent Total Time Spent with Patient: Total time spent is greater than 50% in coordination of care (as documented) at patient's floor/unit and/or counseling patient: Coding Level of Care Code 70567 Inpt Consult Level 4 Diagnoses Hyponatremia E87.1 Hypothyroidism E03.9 Alcohol dependence F10.20 Morbid obesity with BMI of 40.0-44.9, adult E66.01; Z68.41 Open fracture dislocation of left ankle S82.892B GERD (gastroesophageal reflux disease) K21.9 Depression F32.9 HLD (hyperlipidemia) E78.5 HTN (hypertension) I10 Acute blood loss anemia D62
[2021-04-29] MEDS: DOCUSATE SODIUM 100 MG CAP PO SCH ×2 (08:45→19:55)
[2021-04-29] MEDS: oxyCODONE HCL IR 5 MG TAB (IMMEDIATE RELEASE) PO PRN ×3 (09:58→19:52)
--- NOTE | 2021-04-29 10:01 | Orthopedic Progress Note ---
Date of Service April 29, 2021 Assessment & Plan (1) Open fracture dislocation of left ankle: Plan: POD 1 s/p I/D and closure over iodiform drains, open fx dislocation left ankle; application ex fix Hyponatremia-I discussed the case with not any physician group hospitalist service. They will see the patient today in consult. Acute blood loss anemia-we will recheck his H&H later today. Possible need for transfusion. Pt states this is his normal when he has surgery and has required transfusion in the past. He had a significant drop in his hemoglobin since yesterday. 7.5 today. VSS. Patient states that he had moderate blood loss at his home prior to coming to the hospital. He also had noted blood loss in the emergency room with saturated dressings noted on his splint by the time he got to the operating room. Blood loss in OR was listed as 30ml. Pt did have a tourniquette up during the procedure. PT/OT protocols. NWB on LLE. DVT prophylaxis - ASA bid, SCD and MARY on the opposite leg Pain management is written. Await input from hospitalist service. Admission and Anticipated Discharge Date Admission Date: April 27, 2021 Subjective Postop day 2 Patient sitting up in bed awake and alert. Appears comfortable. States he is having a little more aching in the ankle this morning compared to yesterday. No other complaints. We discussed that his hemoglobin dropped and also his sodium remained low. Patient states that he did get somewhat lightheaded yesterday when he was up earlier in the morning. He is sitting up in bed this morning without any problems. Physical Exam Physical Exam: Dressings have less drainage on them compared the previous day. Dressings are removed. Pin sites look benign. Incision is benign. Small amount of serous drainage noted. Wound was redressed with Xeroform, 4 x 4's, Kerlix, Jay wraps. Dorsalis pedis pulse 2/4. Sensation remains the same. He appears to have much less edema in the forefoot and less erythema. He has some increased edema noted over the lateral side of the ankle. This is getting closer to the external fixator bar and pin site but is not yet touching at this point in time. Results & Data ([facility]) Vital Signs (Past 12 Hours) Vital Signs Temp Pulse Resp BP BP Pulse Ox 02/23/22 07:22 37.1 C 90 18 125/72 99 04/28/21 23:08 37.4 C 95 H 20 105/88 95 Laboratory Results 04/29/21 04/29/21 04/28/21 Range/Units 05:05 05:05 Unknown WBC 4.81 (4.8-10.8) K/uL RBC 2.42 L (4.7-6.1) M/uL Hgb 7.5 L D (14.0-18.0) g/dL Hct 22.5 L (42-52) % MCV 93.0 (80-100) fL MCH 31.0 (25-34) pg MCHC 33.3 (32-36) g/dL RDW Std Deviation 45.6 (36.4-46.3) fL RDW Coeff of Kamaljit 13.3 (11.5-14.5) % Plt Count 101 L (130-400) K/uL MPV 8.5 (7.4-10.4) fL Sodium 127 L (136-145) mmol/L Potassium 4.0 (3.5-5.1) mmol/L Chloride 99 (98-107) mmol/L Carbon Dioxide 24 (21-32) mmol/L Anion Gap 4 (3-11) BUN 12 (6-23) mg/dl Creatinine 1.21 D (0.6-1.4) mg/dl Est Cr Clr Drug Dosing 105.5 ml/min Est GFR ( Amer) 75.5 ml/min Est GFR (Non-Af Amer) 65.1 ml/min BUN/Creatinine Ratio 9.9 L (10-20) Glucose 114 H (70-99(Fasting)) mg/dl Calcium 7.6 L (8.5-10.1) mg/dl Thyroxine (T4) (6.09-12.23) mcg/dl Total T3 (76-181) ng/dL Urine Osmolality (500-800) mOsm/kg Ur Random Sodium < 10 mmol/L 04/28/21 04/28/21 04/28/21 Range/Units Unknown 11:33 11:33 WBC (4.8-10.8) K/uL RBC (4.7-6.1) M/uL Hgb (14.0-18.0) g/dL Hct (42-52) % MCV (80-100) fL MCH (25-34) pg MCHC (32-36) g/dL RDW Std Deviation (36.4-46.3) fL RDW Coeff of Kamaljit (11.5-14.5) % Plt Count (130-400) K/uL MPV (7.4-10.4) fL Sodium (136-145) mmol/L Potassium (3.5-5.1) mmol/L Chloride (98-107) mmol/L Carbon Dioxide (21-32) mmol/L Anion Gap (3-11) BUN (6-23) mg/dl Creatinine (0.6-1.4) mg/dl Est Cr Clr Drug Dosing ml/min Est GFR ( Amer) ml/min Est GFR (Non-Af Amer) ml/min BUN/Creatinine Ratio (10-20) Glucose (70-99(Fasting)) mg/dl Calcium (8.5-10.1) mg/dl Thyroxine (T4) 9.3 (6.09-12.23) mcg/dl Total T3 41 L (76-181) ng/dL Urine Osmolality 510 (500-800) mOsm/kg Ur Random Sodium mmol/L
[2021-04-29] MEDS: cefTRIAXone SODIUM 2,000 MG in DEXTROSE 5% 50 ML IV SCH ×2 (10:51→21:59)
[2021-04-29] MEDS: SODIUM CHLORIDE 1 GM TABLET PO SCH ×2 (10:55→19:57)
[2021-04-29] MEDS: THIAMINE HCL 100 MG TAB PO SCH ×2 (10:55→19:58)
[2021-04-29] MEDS: ACETAMINOPHEN 500 MG TAB PO PRN (19:53)
[2021-04-30] MEDS: LEVOTHYROXINE SODIUM 75 MCG TABLET PO SCH (05:57)
[2021-04-30 06:12] LABS: Hematocrit (blood only) 21.5 % (42-52); Hemoglobin 7.2 g/dL (14.0-18.0); Mean Corpuscular Hemoglobin 31.9 pg (25-34); Mean Corpuscular Volume 95.1 fL (80-100); RDW Coefficient of Variation 13.2 % (11.5-14.5); RDW Standard Deviation 45.5 fL (36.4-46.3); Red Blood Count 2.26 M/uL (4.7-6.1)
[2021-04-30 06:34] LABS: Anion Gap 5 (3-11); BUN Creatinine Ratio 10.4 (10-20); Blood Urea Nitrogen 10 mg/dl (6-23); Calcium 7.5 mg/dl (8.5-10.1); Carbon Dioxide 24 mmol/L (21-32); Chloride 101 mmol/L (98-107); Est GFR (African American) 99.9 ml/min; Est GFR (Non-African American) 86.2 ml/min; Glucose 100 mg/dl (70-99(Fasting)); Magnesium 2.1 mg/dl (1.7-2.4); Sodium 130 mmol/L (136-145)
[2021-04-30 07:16] LABS: Mean Corpuscular Hgb Conc 33.5 g/dL (32-36); Mean Platelet Volume 8.5 fL (7.4-10.4); Platelet Count 95 K/uL (130-400); Platelet Estimate Decreased (Normal)
[2021-04-30] MEDS ORDERED: SODIUM CHLORIDE 0.9% 250 ML IV PRN (07:23)
[2021-04-30] MEDS ORDERED: diphenhydrAMINE 50 MG/ML VIAL IV SCH (08:00)
[2021-04-30] MEDS ORDERED: FUROSEMIDE 40 MG/4 ML VIAL IV SCH (08:00)
[2021-04-30] MEDS: oxyCODONE HCL IR 5 MG TAB (IMMEDIATE RELEASE) PO PRN ×3 (08:02→21:08)
[2021-04-30] MEDS: DOCUSATE SODIUM 100 MG CAP PO SCH ×2 (08:39→20:37)
[2021-04-30] MEDS: SERTRALINE HCL 50 MG TABLET PO SCH (08:39)
[2021-04-30] MEDS: FOLIC ACID 1 MG TAB PO SCH (08:39)
[2021-04-30] MEDS: ATORVASTATIN 10 MG TAB PO SCH (08:39)
[2021-04-30] MEDS: FERROUS SULFATE 325 MG TAB PO SCH (08:39)
[2021-04-30] MEDS: MULTIVITAMIN TAB PO SCH (08:40)
[2021-04-30] MEDS: ASPIRIN 81 MG ECTAB PO SCH ×2 (08:40→20:37)
[2021-04-30] MEDS: GABAPENTIN 300 MG CAP PO SCH ×3 (08:40→20:37)
[2021-04-30] MEDS: PANTOprazole 40 MG TAB PO SCH (08:40)
[2021-04-30] MEDS: THIAMINE HCL 100 MG TAB PO SCH ×2 (08:40→20:37)
[2021-04-30] MEDS: SODIUM CHLORIDE 1 GM TABLET PO SCH ×2 (08:41→20:37)
[2021-04-30] MEDS: METHOCARBAMOL 500 MG TABLET PO SCH ×4 (08:41→20:37)
[2021-04-30] MEDS ORDERED: ERGOCALCIFEROL 50,000 UNITS 1250 MCG CAP PO ONE (10:00)
[2021-04-30] MEDS: CALCIUM 600MG + VIT D 400 IU TAB PO SCH ×2 (10:25→20:37)
--- NOTE | 2021-04-30 10:42 | Orthopedic Progress Note ---
Date of Service April 30, 2021 Assessment & Plan (1) Open fracture dislocation of left ankle: Plan: POD 3 s/p I/D and closure over iodiform drains, open fx dislocation left ankle; application ex fix Hyponatremia-sodium 130. Hemoglobin 7.2-patient being transfused 2 units of PRBCs. Patient must maintain elevation and a little bit of internal rotation of the left lower extremity to help combat his swelling. Reinforced this with him. Also discussed with nursing staff. PT/OT protocols. NWB on LLE. DVT prophylaxis - ASA bid, SCD and MARY on the opposite leg Pain management is written. Appreciate hospitalist input. Admission and Anticipated Discharge Date Admission Date: April 27, 2021 Subjective Postop day 3 Patient currently lying in bed. There are essentially no pillows underneath his left leg. We discussed the importance of keeping at least 3-4 pillows under his left lower extremity to help with the swelling. Patient states that they were moving him about earlier this morning secondary to starting his blood transfusions. He currently has no overt complaints. He had some mild discomfort earlier but took pain medication a little while ago and is doing better. Denies shortness of breath, chest pain, lightheadedness. Physical Exam Physical Exam: Dressings removed. Incision continues to remain benign and he has some clear to orange serous drainage noted from the wound. No erythema noted. He does have continued increased swelling over the lateral aspect of the ankle. He tends to have the left leg externally rotated. The swelling and the skin is not yet touching the anchor of the external fixator on the lateral aspect but if the swelling does not get contained this may have to be rectified. Pin sites appear benign. Wounds redressed with Xeroform, 4 x 4's, ABDs, Kerlix, Jay wraps. Placed the left lower extremity on 3 pillows. Results & Data ([facility]) Vital Signs (Past 12 Hours) Vital Signs Temp Pulse Pulse Resp BP BP Pulse Ox 04/30/21 09:53 37 C 75 20 112/70 98 04/30/21 09:49 37.4 C 70 18 123/75 98 04/30/21 09:36 37 C 74 18 128/77 04/30/21 08:11 37.2 C 80 19 122/74 98 Laboratory Results 04/30/21 04/30/21 04/30/21 Range/Units 08:01 06:42 05:48 WBC RBC Hgb Hct MCV MCH MCHC RDW Std Deviation RDW Coeff of Kamaljit Plt Count MPV Absolute Nucleated RBC Nucleated RBC % (auto) Platelet Estimate Sodium (136-145) mmol/L Potassium 3.9 Chloride (98-107) mmol/L Carbon Dioxide (21-32) mmol/L Anion Gap (3-11) BUN (6-23) mg/dl Creatinine (0.6-1.4) mg/dl Est Cr Clr Drug Dosing ml/min Est GFR ( Amer) ml/min Est GFR (Non-Af Amer) ml/min BUN/Creatinine Ratio (10-20) Glucose (70-99(Fasting)) mg/dl Osmolality (280-300) mOsm/kg Calcium (8.5-10.1) mg/dl Magnesium (1.7-2.4) mg/dl 25-OH Vitamin D Total < 7.0 L (30-100) ng/ml TSH (0.300-4.500) uIu/ml Blood Type Blood Type Recheck A Positive Antibody Screen Crossmatch 04/30/21 04/30/21 04/30/21 Range/Units 05:48 05:04 05:04 WBC 4.60 L Cancelled RBC 2.26 L Cancelled Hgb 7.2 L Cancelled Hct 21.5 L Cancelled MCV 95.1 Cancelled MCH 31.9 Cancelled MCHC 33.5 Cancelled RDW Std Deviation 45.5 Cancelled RDW Coeff of Kamaljit 13.2 Cancelled Plt Count 95 L Cancelled MPV 8.5 Cancelled Absolute Nucleated RBC Cancelled Nucleated RBC % (auto) Cancelled Platelet Estimate Decreased L Cancelled Sodium 130 L (136-145) mmol/L Potassium TNP Chloride 101 (98-107) mmol/L Carbon Dioxide 24 (21-32) mmol/L Anion Gap 5 (3-11) BUN 10 (6-23) mg/dl Creatinine 0.96 (0.6-1.4) mg/dl Est Cr Clr Drug Dosing 133.0 ml/min Est GFR ( Amer) 99.9 ml/min Est GFR (Non-Af Amer) 86.2 ml/min BUN/Creatinine Ratio 10.4 (10-20) Glucose 100 H (70-99(Fasting)) mg/dl Osmolality (280-300) mOsm/kg Calcium 7.5 L (8.5-10.1) mg/dl Magnesium 2.1 (1.7-2.4) mg/dl 25-OH Vitamin D Total (30-100) ng/ml TSH (0.300-4.500) uIu/ml Blood Type Blood Type Recheck Antibody Screen Crossmatch 04/29/21 04/29/21 04/29/21 Range/Units 17:29 12:04 11:57 WBC RBC Hgb Hct MCV MCH MCHC RDW Std Deviation RDW Coeff of Kamaljit Plt Count MPV Absolute Nucleated RBC Nucleated RBC % (auto) Platelet Estimate Sodium 129 L (136-145) mmol/L Potassium Chloride (98-107) mmol/L Carbon Dioxide (21-32) mmol/L Anion Gap (3-11) BUN (6-23) mg/dl Creatinine (0.6-1.4) mg/dl Est Cr Clr Drug Dosing ml/min Est GFR ( Amer) ml/min Est GFR (Non-Af Amer) ml/min BUN/Creatinine Ratio (10-20) Glucose (70-99(Fasting)) mg/dl Osmolality 274 L (280-300) mOsm/kg Calcium (8.5-10.1) mg/dl Magnesium (1.7-2.4) mg/dl 25-OH Vitamin D Total (30-100) ng/ml TSH (0.300-4.500) uIu/ml Blood Type A Positive Blood Type Recheck Antibody Screen NEGATIVE Crossmatch See Detail 04/29/21 Range/Units 11:57 WBC RBC Hgb Hct MCV MCH MCHC RDW Std Deviation RDW Coeff of Kamaljit Plt Count MPV Absolute Nucleated RBC Nucleated RBC % (auto) Platelet Estimate Sodium (136-145) mmol/L Potassium Chloride (98-107) mmol/L Carbon Dioxide (21-32) mmol/L Anion Gap (3-11) BUN (6-23) mg/dl Creatinine (0.6-1.4) mg/dl Est Cr Clr Drug Dosing ml/min Est GFR ( Amer) ml/min Est GFR (Non-Af Amer) ml/min BUN/Creatinine Ratio (10-20) Glucose (70-99(Fasting)) mg/dl Osmolality (280-300) mOsm/kg Calcium (8.5-10.1) mg/dl Magnesium (1.7-2.4) mg/dl 25-OH Vitamin D Total (30-100) ng/ml TSH 7.249 H (0.300-4.500) uIu/ml Blood Type Blood Type Recheck Antibody Screen Crossmatch
[2021-04-30] MEDS: cefTRIAXone SODIUM 2,000 MG in DEXTROSE 5% 50 ML IV SCH (12:51)
--- NOTE | 2021-04-30 20:10 | Hospitalist Progress Note ---
Date of Service April 30, 2021 Assessment & Plan (1) Hyponatremia: Plan: Serus osm was <280. Urine Na very low c/w solute/salt deficiency. Urine Osm was very high - this is appropriate concentrating of the urine due to recent volume depletion from blood loss. I can't exclude a small element of his decompensated hypothyroidism contributing. I suspect that his hyponatremia is chronic as he has had no altered mentation, lethargy, etc despite the low sodium. This is unlikely to be beer potomania given the high urine osm. However, his heavy alcohol consumption is likely contributing to his overall poor diet and poor solute intake. Labs/urine studies are not c/w SIADH from his SSRI use. He does not take diuretics. With NaCL tabs his Na is now 130; was 127. Plan - * cont NaCl 1gm BID * repeat BMP in am * increased synthroid to 75mcg/day given his high TSH * defer on cortisol testing (2) Hypothyroidism: Plan: TSH is high at 7. He reports compliance with his synthroid. Increased to 75mcg/day. Repeat TSH in 6 weeks as outpatient. (3) Alcohol dependence: Plan: Thus far no signs of etoh withdrawal. Cont folate supplementation. Cont MVI. Cont thiamine 200mg BID. He takes gabapentin chronically at home presumably for his neuropathy. Watch carefully for signs/symptoms of etoh withdrawal and institute the etoh w ithdrawal protocol as necessary. (4) Morbid obesity with BMI of 40.0-44.9, adult: Plan: BMI 45 (5) Open fracture dislocation of left ankle: Plan: POD #3 s/p extensive surgery for such by Dr Samaniego. Defer all management to orthopedics. (6) GERD (gastroesophageal reflux disease): Plan: Continue PPI daily (7) Depression: Plan: Continue sertraline daily (8) HLD (hyperlipidemia): Plan: Continue statin daily (9) HTN (hypertension): Plan: This is listed as a diagnosis in the EMR but he is not on meds for such. BPs cont to be stable. Monitor. (10) Acute blood loss anemia: Plan: Significant blood loss from bleeding from his wound and perioperative blood loss. s/p 2 units PRBCs today as per ortho - agree with such. H/H am. Consider IV venofer tomorrow. Low platelets, low WBC count - check folate/b12 am. (11) Vitamin D deficiency: Plan: severe. undetectable level. ergocalciferol 52997 units qweekly x 8 weeks. calcium supplementation as well. (12) Hypocalcemia: Plan: 2nd to #11. Rx the low vit D. calcium supplementation as well. Plan: DVT proph - per ortho - asa 81mg BID Per the external med rec history he is on ambien + methocarbamol chronically at home - these are being continued. Will cont to follow. Admission and Anticipated Discharge Date Admission Date: April 27, 2021 Subjective pt's only complaint is that of left ankle pain denies tremors, anxiety, sweats or other symptoms of etoh withdrawal eating well still no bowel movement but passing flatus Review of Systems Review of Systems: gen - good appetite cv - no cp, no orthopnea pulm - no dyspnea at rest GI - mild bloating but no nausea or emesis Physical Exam Physical Exam: gen - morbidly obese, pleasant, NAD; no signs of etoh withdrawal skin - mild pallor, turgor wnl HENT - mouth with MMM neck - no JVD, no lymphadenopathy heart - RRR, s1 s2 lungs - CTA b/l abd - soft NT ND BS+ ext - left ankle/foot in external fixation device and multiple dressings; pulses right foot 2+ psych - a/o x 3 neuro - no tremor Results & Data Results & Data ([facility]) Vital Signs (Past 12 Hours) Vital Signs Temp Pulse Pulse Resp BP BP Pulse Ox 04/30/21 17:35 37 C 78 22 119/73 97 04/30/21 15:46 36.9 C 69 18 116/71 95 04/30/21 15:42 37.1 C 73 20 130/75 100 04/30/21 14:46 37.2 C 73 20 125/76 98 04/30/21 14:16 37.2 C 71 20 114/76 98 04/30/21 14:01 37.1 C 71 18 116/75 98 04/30/21 13:44 37 C 72 18 117/72 04/30/21 12:37 37 C 72 20 129/75 99 04/30/21 11:40 37.1 C 70 18 127/72 98 04/30/21 10:40 37 C 70 18 107/67 98 04/30/21 10:38 37.1 C 70 18 127/72 98 04/30/21 10:08 37 C 70 18 107/67 99 04/30/21 09:53 37 C 75 20 112/70 98 04/30/21 09:49 37.4 C 70 18 123/75 98 04/30/21 09:36 37 C 74 18 128/77 04/30/21 08:11 37.2 C 80 19 122/74 98 Laboratory Results Laboratory Results - last 24 hr 04/29/21 04/30/21 04/30/21 12:04 05:04 05:04 WBC Cancelled RBC Cancelled Hgb Cancelled Hct Cancelled MCV Cancelled MCH Cancelled MCHC Cancelled RDW Std Deviation Cancelled RDW Coeff of Kamaljit Cancelled Plt Count Cancelled MPV Cancelled Absolute Nucleated RBC Cancelled Nucleated RBC % (auto) Cancelled Platelet Estimate Cancelled Sodium 130 L Potassium TNP Chloride 101 Carbon Dioxide 24 Anion Gap 5 BUN 10 Creatinine 0.96 Est Cr Clr Drug Dosing 133.0 Est GFR ( Amer) 99.9 Est GFR (Non-Af Amer) 86.2 BUN/Creatinine Ratio 10.4 Glucose 100 H Calcium 7.5 L Magnesium 2.1 25-OH Vitamin D Total Blood Type A Positive Blood Type Recheck Antibody Screen NEGATIVE Crossmatch See Detail 04/30/21 04/30/21 04/30/21 05:48 05:48 06:42 WBC 4.60 L RBC 2.26 L Hgb 7.2 L Hct 21.5 L MCV 95.1 MCH 31.9 MCHC 33.5 RDW Std Deviation 45.5 RDW Coeff of Kamaljit 13.2 Plt Count 95 L MPV 8.5 Absolute Nucleated RBC Nucleated RBC % (auto) Platelet Estimate Decreased L Sodium Potassium 3.9 Chloride Carbon Dioxide Anion Gap BUN Creatinine Est Cr Clr Drug Dosing Est GFR ( Amer) Est GFR (Non-Af Amer) BUN/Creatinine Ratio Glucose Calcium Magnesium 25-OH Vitamin D Total Blood Type Blood Type Recheck A Positive Antibody Screen Crossmatch 04/30/21 08:01 WBC RBC Hgb Hct MCV MCH MCHC RDW Std Deviation RDW Coeff of Kamaljit Plt Count MPV Absolute Nucleated RBC Nucleated RBC % (auto) Platelet Estimate Sodium Potassium Chloride Carbon Dioxide Anion Gap BUN Creatinine Est Cr Clr Drug Dosing Est GFR ( Amer) Est GFR (Non-Af Amer) BUN/Creatinine Ratio Glucose Calcium Magnesium 25-OH Vitamin D Total < 7.0 L Blood Type Blood Type Recheck Antibody Screen Crossmatch PG Care Time/CCT Total # of Minutes Spent Total Time Spent with Patient: Total time spent is greater than 50% in coordination of care (as documented) at patient's floor/unit and/or counseling patient: Coding Level of Care Code 65847 Subseq Hosp Care Lvl 2 Diagnoses Hyponatremia E87.1 Hypothyroidism E03.9 Alcohol dependence F10.20 Morbid obesity with BMI of 40.0-44.9, adult E66.01; Z68.41 Open fracture dislocation of left ankle S82.892B GERD (gastroesophageal reflux disease) K21.9 Depression F32.9 HLD (hyperlipidemia) E78.5 HTN (hypertension) I10 Acute blood loss anemia D62 Vitamin D deficiency E55.9 Hypocalcemia E83.51
[2021-04-30] MEDS: ZOLPIDEM TARTRATE 5 MG TAB PO PRN (23:16)
[2021-05-01] MEDS: cefTRIAXone SODIUM 2,000 MG in DEXTROSE 5% 50 ML IV SCH ×2 (01:36→13:36)
[2021-05-01 06:15] LABS: Hemoglobin 8.6 g/dL (14.0-18.0); Mean Corpuscular Hemoglobin 31.6 pg (25-34); Mean Corpuscular Hgb Conc 34.4 g/dL (32-36); Mean Corpuscular Volume 91.9 fL (80-100); Mean Platelet Volume 8.7 fL (7.4-10.4); Platelet Count 119 K/uL (130-400); RDW Coefficient of Variation 14.4 % (11.5-14.5); RDW Standard Deviation 48.2 fL (36.4-46.3); Red Blood Count 2.72 M/uL (4.7-6.1)
[2021-05-01] MEDS: LEVOTHYROXINE SODIUM 75 MCG TABLET PO SCH (06:24)
[2021-05-01 06:47] LABS: BUN Creatinine Ratio 10.9 (10-20); Calcium 7.9 mg/dl (8.5-10.1); Creatinine Clr Calc Pharmacy 138.8 ml/min; Est GFR (African American) 105.1 ml/min; Est GFR (Non-African American) 90.7 ml/min; Potassium 3.7 mmol/L (3.5-5.1)
[2021-05-01 07:10] LABS: Folate (Folic Acid) 6.67 ng/ml (>5.38)
[2021-05-01] MEDS: FERROUS SULFATE 325 MG TAB PO SCH (08:23)
[2021-05-01] MEDS: THIAMINE HCL 100 MG TAB PO SCH ×2 (08:23→21:15)
[2021-05-01] MEDS: GABAPENTIN 300 MG CAP PO SCH ×3 (08:24→21:14)
[2021-05-01] MEDS: ATORVASTATIN 10 MG TAB PO SCH (08:24)
[2021-05-01] MEDS: PANTOprazole 40 MG TAB PO SCH (08:24)
[2021-05-01] MEDS: METHOCARBAMOL 500 MG TABLET PO SCH ×4 (08:24→21:14)
[2021-05-01] MEDS: CALCIUM 600MG + VIT D 400 IU TAB PO SCH ×2 (08:24→21:15)
[2021-05-01] MEDS: SERTRALINE HCL 50 MG TABLET PO SCH (08:24)
[2021-05-01] MEDS: MULTIVITAMIN TAB PO SCH (08:24)
[2021-05-01] MEDS: ASPIRIN 81 MG ECTAB PO SCH ×2 (08:24→21:15)
[2021-05-01] MEDS: DOCUSATE SODIUM 100 MG CAP PO SCH ×2 (08:25→21:15)
[2021-05-01] MEDS: FOLIC ACID 1 MG TAB PO SCH ×2 (08:25→10:01)
[2021-05-01] MEDS: MAGNESIUM HYDROXIDE SUSP 30 ML UDC PO PRN (08:36)
[2021-05-01] MEDS: oxyCODONE HCL IR 5 MG TAB (IMMEDIATE RELEASE) PO PRN ×4 (09:12→21:19)
[2021-05-01] MEDS: SODIUM CHLORIDE 1 GM TABLET PO SCH ×2 (10:01→21:15)
[2021-05-01] MEDS: CYANOCOBALAMIN (B-12) 500 MCG TABLET PO SCH (10:01)
[2021-05-01] MEDS ORDERED: KETOROLAC 30 MG/ML VIAL IV ONE (12:16)
--- NOTE | 2021-05-01 12:16 | Orthopedic Progress Note ---
Date of Service May 01, 2021 Assessment & Plan (1) Open fracture dislocation of left ankle: Plan: POD 3 s/p I/D and closure over iodiform drains, open fx dislocation left ankle; application ex fix Hyponatremia-sodium 131. Slowly resolving. Hemoglobin 8.6 after transfusion. Patient must maintain elevation and a little bit of internal rotation of the left lower extremity to help combat his swelling. Reinforced this with him. Also discussed with nursing staff. PT/OT protocols. NWB on LLE. DVT prophylaxis - ASA bid, SCD and MARY on the opposite leg Pain management is written. Appreciate hospitalist input. Hold plans for dc. Continue to follow swelling for now/pain control. Admission and Anticipated Discharge Date Admission Date: April 27, 2021 Subjective POD 4 Pt lying in bed awake, alert. Patient states that he is having a little bit more pain that he had had previously today. Mostly on the lateral aspect. No other complaints. Physical Exam Physical Exam: Dressings removed. Patient continues to have increased swellin g over the lateral aspect of the ankle. Skin is now closely touching the one anchor for his external fixator. No areas of skin breakdown noted at this time. Pin sites appear benign with scant drainage. His main wound over the anterior ankle has noted yellow serous drainage on the dressing but the wound itself remains benign. No erythema. Continues with mild swelling over the dorsum of the foot and of the ankle. The only area of noted increase in swelling is over the lateral malleolar area. No erythema in this area. The swelling is boggy on palpation. The swelling is not tense. Patient does have some increased pain on palpation but he states that is not severe. He states that the pain is just more noticeable than it was than before. Capillary refill continues to remain less than 2 seconds. No overt changes in sensation. New dressings applied. Results & Data ([facility]) Vital Signs (Past 12 Hours) Vital Signs Temp Pulse Resp BP Pulse Ox 05/01/21 07:59 36.4 C L 87 18 119/68 96 Laboratory Results 05/01/21 05/01/21 05/01/21 Range/Units 05:44 05:44 05:44 WBC 3.80 L (4.8-10.8) K/uL RBC 2.72 L (4.7-6.1) M/uL Hgb 8.6 L (14.0-18.0) g/dL Hct 25.0 L (42-52) % MCV 91.9 (80-100) fL MCH 31.6 (25-34) pg MCHC 34.4 (32-36) g/dL RDW Std Deviation 48.2 H (36.4-46.3) fL RDW Coeff of Kamaljit 14.4 (11.5-14.5) % Plt Count 119 L (130-400) K/uL MPV 8.7 (7.4-10.4) fL Sodium 131 L (136-145) mmol/L Potassium 3.7 (3.5-5.1) mmol/L Chloride 100 (98-107) mmol/L Carbon Dioxide 26 (21-32) mmol/L Anion Gap 5 (3-11) BUN 10 (6-23) mg/dl Creatinine 0.92 (0.6-1.4) mg/dl Est Cr Clr Drug Dosing 138.8 ml/min Est GFR ( Amer) 105.1 ml/min Est GFR (Non-Af Amer) 90.7 ml/min BUN/Creatinine Ratio 10.9 (10-20) Glucose 104 H (70-99(Fasting)) mg/dl Calcium 7.9 L (8.5-10.1) mg/dl Vitamin B12 398 (180-914) pg/ml Folate 6.67 (>5.38) ng/ml Blood Type Antibody Screen Crossmatch 04/29/21 Range/Units 12:04 WBC (4.8-10.8) K/uL RBC (4.7-6.1) M/uL Hgb (14.0-18.0) g/dL Hct (42-52) % MCV (80-100) fL MCH (25-34) pg MCHC (32-36) g/dL RDW Std Deviation (36.4-46.3) fL RDW Coeff of Kamaljit (11.5-14.5) % Plt Count (130-400) K/uL MPV (7.4-10.4) fL Sodium (136-145) mmol/L Potassium (3.5-5.1) mmol/L Chloride (98-107) mmol/L Carbon Dioxide (21-32) mmol/L Anion Gap (3-11) BUN (6-23) mg/dl Creatinine (0.6-1.4) mg/dl Est Cr Clr Drug Dosing ml/min Est GFR ( Amer) ml/min Est GFR (Non-Af Amer) ml/min BUN/Creatinine Ratio (10-20) Glucose (70-99(Fasting)) mg/dl Calcium (8.5-10.1) mg/dl Vitamin B12 (180-914) pg/ml Folate (>5.38) ng/ml Blood Type A Positive Antibody Screen NEGATIVE Crossmatch See Detail
[2021-05-01] MEDS ORDERED: IRON SUCROSE 300 MG in SODIUM CHLORIDE 0.9% 250 ML IV ONE (18:00)
[2021-05-01] MEDS: KETOROLAC 30 MG/ML VIAL IV SCH (18:38)
--- NOTE | 2021-05-01 19:14 | Hospitalist Progress Note ---
Date of Service May 01, 2021 Assessment & Plan (1) Hyponatremia: Plan: IMPROVING. Serus osm was <280. Urine Na very low c/w solute/salt deficiency. Urine Osm was very high - this is appropriate concentrating of the urine due to recent volume depletion from blood loss. I can't exclude a small element of his decompensated hypothyroidism contributing. I suspect that his hyponatremia is chronic as he has had no altered mentation, lethargy, etc despite the low sodium. This is unlikely to be beer potomania given the high urine osm. However, his heavy alcohol consumption is likely contributing to his overall poor diet and poor solute intake. Labs/urine studies were not c/w SIADH from his SSRI use. He does not take diuretics chronically at home. With NaCL tabs his Na is now 131; was 127. Plan - * cont NaCl 1gm BID * repeat BMP in am * increased synthroid to 75mcg/day given his high TSH earlier in the stay; repeat TSH 6 weeks * defer on cortisol testing (2) Hypothyroidism: Plan: TSH high at 7. He reports compliance with his synthroid. Increased to 75mcg/day. Repeat TSH in 6 weeks as outpatient. (3) Alcohol dependence: Plan: Thus far no signs of etoh withdrawal. Cont folate supplementation. Cont MVI. Cont thiamine 200mg BID. He takes gabapentin chronically at home presumably for his neuropathy. Watch carefully for signs/symptoms of etoh withdrawal and institute the etoh withdrawal protocol as necessary. (4) Morbid obesity with BMI of 40.0-44.9, adult: Plan: BMI 45 (5) Open fracture dislocation of left ankle: Plan: POD #4 s/p extensive surgery for such by Dr Samaniego. Defer all management to orthopedics. (6) GERD (gastroesophageal reflux disease): Plan: Continue PPI daily (7) Depression: Plan: Continue sertraline daily (8) HLD (hyperlipidemia): Plan: Continue statin daily (9) HTN (hypertension): Plan: This is listed as a diagnosis in the EMR but he is not on meds for such. BPs cont to be stable. Monitor. (10) Acute blood loss anemia: Plan: Significant blood loss from bleeding from his wound and perioperative blood loss. s/p 2 units PRBCs per ortho. H/H improved/stable. IV venofer 300mg IV x 1 today. Repeat H/H am. Low platelets, low WBC count - checked folate/b12 - both are low-normal. I suspect all his vitamin deficiencies/insufficiencies are due to poor nutrition in the setting of heavy, daily etoh use. Increase folate to 2mg/day (was on 1mg). Start vit B12 1000mcg daily. (11) Vitamin D deficiency: Plan: severe. undetectable level. ergocalciferol 79729 units qweekly x 8 weeks. first dose 04/30/21. calcium supplementation as well. (12) Hypocalcemia: Plan: 2nd to #11. Rx the low vit D. calcium supplementation. (13) Constipation: Plan: dulcolax suppos x 1 now then senna + miralax daily for maintenance no clinical evidence of ileus (no nausea, passing flatus, etc) Plan: DVT proph - per ortho - asa 81mg BID Per the external med rec history he is on ambien + methocarbamol chronically at home - these are being continued. Hospitalist team will cont to follow. Admission and Anticipated Discharge Date Admission Date: April 27, 2021 Subjective pt's largest complaint is that of ongoing left ankle pain at rest is it decently controlled but with any attempt at ambulation there is considerable pain remains mildly distended passing flatus -- but no stool since before admission eating well no dyspnea no cp no abd pain he plans to go to rehab, then will need repeat surgery on the left ankle in the near-future Review of Systems Review of Systems: gen - no fevers; sleeping well cv - no chest pain, no orthopnea pulm - no dyspnea at rest GI - no nausea or emesis Physical Exam Physical Exam: gen - morbidly obese, pleasant, NAD; no signs of etoh withdrawal skin - pallor improved neck - no JVD, no lymphadenopathy heart - RRR, s1 s2, no murmur lungs - CTA b/l abd - soft NT ND BS+ ext - left ankle/foot in external fixation device and multiple dressings; pulses b/l feet 2+ psych - a/o x 3 Results & Data Results & Data ([facility]) Vital Signs (Past 12 Hours) Vital Signs Temp Pulse Pulse Resp BP BP Pulse Ox 05/01/21 18:14 36.9 C 63 18 115/72 98 05/01/21 15:19 36.4 C L 59 L 16 122/73 97 05/01/21 07:59 36.4 C L 87 18 119/68 96 Laboratory Results Laboratory Results - last 24 hr 05/01/21 05/01/21 05/01/21 05:44 05:44 05:44 WBC 3.80 L RBC 2.72 L Hgb 8.6 L Hct 25.0 L MCV 91.9 MCH 31.6 MCHC 34.4 RDW Std Deviation 48.2 H RDW Coeff of Kamaljit 14.4 Plt Count 119 L MPV 8.7 Sodium 131 L Potassium 3.7 Chloride 100 Carbon Dioxide 26 Anion Gap 5 BUN 10 Creatinine 0.92 Est Cr Clr Drug Dosing 138.8 Est GFR ( Amer) 105.1 Est GFR (Non-Af Amer) 90.7 BUN/Creatinine Ratio 10.9 Glucose 104 H Calcium 7.9 L Vitamin B12 398 Folate 6.67 PG Care Time/CCT Total # of Minutes Spent Total Time Spent with Patient: Total time spent is greater than 50% in coordination of care (as documented) at patient's floor/unit and/or counseling patient: Coding Level of Care Code 90547 Subseq Hosp Care Lvl 3 Diagnoses Hyponatremia E87.1 Hypothyroidism E03.9 Alcohol dependence F10.20 Morbid obesity with BMI of 40.0-44.9, adult E66.01; Z68.41 Open fracture dislocation of left ankle S82.892B GERD (gastroesophageal reflux disease) K21.9 Depression F32.9 HLD (hyperlipidemia) E78.5 HTN (hypertension) I10 Acute blood loss anemia D62 Vitamin D deficiency E55.9 Hypocalcemia E83.51 Constipation K59.00
[2021-05-01] MEDS: ZOLPIDEM TARTRATE 5 MG TAB PO PRN (23:07)
[2021-05-02] MEDS: cefTRIAXone SODIUM 2,000 MG in DEXTROSE 5% 50 ML IV SCH ×2 (02:04→15:15)
[2021-05-02] MEDS: KETOROLAC 30 MG/ML VIAL IV SCH (02:05)
[2021-05-02] MEDS: LEVOTHYROXINE SODIUM 75 MCG TABLET PO SCH (06:52)
[2021-05-02 07:14] LABS: Hematocrit (blood only) 27.2 % (42-52); Hemoglobin 9.2 g/dL (14.0-18.0)
[2021-05-02 07:35] LABS: BUN Creatinine Ratio 10.4 (10-20); Calcium 7.7 mg/dl (8.5-10.1); Est GFR (African American) 99.9 ml/min; Est GFR (Non-African American) 86.2 ml/min; Potassium 3.9 mmol/L (3.5-5.1)
[2021-05-02] MEDS: oxyCODONE HCL IR 5 MG TAB (IMMEDIATE RELEASE) PO PRN ×4 (07:52→20:27)
[2021-05-02] MEDS: MAGNESIUM HYDROXIDE SUSP 30 ML UDC PO PRN (07:52)
--- NOTE | 2021-05-02 08:06 | Hospitalist Progress Note ---
Date of Service May 02, 2021 Assessment & Plan (1) Hyponatremia: Plan: Improving Serus osm was <280. Urine Na low c/w solute/salt deficiency. Urine Osm was high - this is appropriate concentrating of the urine due to recent volume depletion from blood loss. I suspect that his hyponatremia is chronic as he has had no altered mentation, lethargy, etc despite the low sodium. This is unlikely to be beer potomania given the high urine osm. However, his heavy alcohol consumption is likely contributing to his overall poor diet and poor solute intake. Labs/urine studies are not c/w SIADH from his SSRI use. He does not take diuretics. sodium is improving continue with salt replacement and conservative water intake (2) Hypothyroidism: Plan: TSH is high Increased to 75mcg/day. Repeat TSH in 6 weeks as outpatient. (3) Alcohol dependence: Plan: No signs of etoh withdrawal at this time. Cont folate, MVI, thiamine 200mg BID. He takes gabapentin chronically at home presumably for his neuropathy. (4) Morbid obesity with BMI of 40.0-44.9, adult: Plan: BMI 45 (5) Open fracture dislocation of left ankle: Plan: 04.27.21 orif and laceration repair left ankle by Dr Samaniego. (6) GERD (gastroesophageal reflux disease): Plan: Continue PPI daily (7) Depression: Plan: Continue sertraline daily (8) HLD (hyperlipidemia): Plan: Continue statin daily (9) Acute blood loss anemia: Plan: Significant blood loss from bleeding from his wound and perioperative blood loss. s/p 2 units PRBCs (10) Vitamin D deficiency: Plan: severe. undetectable level. ergocalciferol 16848 units qweekly x 8 weeks. calcium supplementation as well. (11) Hypocalcemia: Plan: 2nd to #11. Rx the low vit D. calcium supplementation as well. (12) HTN (hypertension): Plan: This is listed as a diagnosis in the EMR but he is not on meds for such. BPs cont to be stable. Monitor. (13) Constipation: Plan: dulcolax suppos x 1 now then senna + miralax daily for maintenance no clinical evidence of ileus (no nausea, passing flatus, etc) Plan: DVT proph - per ortho - asa 81mg BID Per the external med rec history he is on ambien + methocarbamol chronically at home - these are being continued. Admission and Anticipated Discharge Date Admission Date: April 27, 2021 Subjective Patient has no complaints or problems his pain of his leg is fairly controlled he has external pins visible through his dressing. He appears much older than his stated age he is got chronic some chronic skin discoloration which looks like he may have has bruises or bleeding for some time. He is not gone through any signs or symptoms of alcohol withdrawal at this time his vitals are stable Review of Systems Review of Systems: Mild distress and fatigue does have some pain to his leg when he moves it no headache, no visual changes no speech or swallowing issues no chest pain, pressure or palpitations no shortness of breath, cough or wheezes no abdominal pain, nausea or vomiting, diarrhea or constipation no dysuria, hematuria or frequency Left leg is in the bandage was external pins is able through the bandage no back pain, CVA tenderness or radicular pain Bruises and discoloration to his arms no focal signs of weakness or numbness or altered sensation no complaints of anxiety or depression.. Physical Exam Physical Exam: The patient appeared well nourished and normally developed. He appears slightly older than his stated age Vital signs as documented. Head exam is normocephalic atraumatic Neck is without JVD, thyromegaly, or carotid bruits. Lungs are clear to auscultation, no focal loss of breath sounds Cardiac exam, Rhythm is regular.. No murmurs, rubs or gallops. Abdominal exam reveals normal bowel sounds, soft non tender, no masses Left extremity has splint and bandage in place he has good warmth to his toes sensation capillary refill and function. Neurologic exam is alert and oriented, x3 Skin is with bruises but no rashes Psychologically is without concerns for anxiety or depression or alcohol withdrawal. Results & Data Results & Data ([facility]) Vital Signs (Past 12 Hours) Vital Signs Temp Pulse Resp BP Pulse Ox 05/02/21 07:36 97.5 F L 67 16 135/83 97 05/01/21 22:57 97.7 F 67 16 118/73 96 PG Care Time/CCT Total # of Minutes Spent Total Time Spent with Patient: Total time spent is greater than 50% in coordination of care (as documented) at patient's floor/unit and/or counseling patient: Coding Level of Care Code 01894 Subseq Hosp Care Lvl 2 Diagnoses Hyponatremia E87.1 Hypothyroidism E03.9 Alcohol dependence F10.20 Morbid obesity with BMI of 40.0-44.9, adult E66.01; Z68.41 Open fracture dislocation of left ankle S82.892B GERD (gastroesophageal reflux disease) K21.9 Depression F32.9 HLD (hyperlipidemia) E78.5 Acute blood loss anemia D62 Vitamin D deficiency E55.9 Hypocalcemia E83.51 HTN (hypertension) I10 Constipation K59.00
[2021-05-02] MEDS: SODIUM CHLORIDE 1 GM TABLET PO SCH ×2 (08:46→20:27)
[2021-05-02] MEDS: THIAMINE HCL 100 MG TAB PO SCH ×2 (08:46→20:27)
[2021-05-02] MEDS: ASPIRIN 81 MG ECTAB PO SCH ×2 (08:46→20:26)
[2021-05-02] MEDS: FERROUS SULFATE 325 MG TAB PO SCH (08:46)
[2021-05-02] MEDS: SERTRALINE HCL 50 MG TABLET PO SCH (08:46)
[2021-05-02] MEDS: FOLIC ACID 1 MG TAB PO SCH (08:46)
[2021-05-02] MEDS: CYANOCOBALAMIN (B-12) 500 MCG TABLET PO SCH (08:46)
[2021-05-02] MEDS: METHOCARBAMOL 500 MG TABLET PO SCH ×4 (08:46→20:25)
[2021-05-02] MEDS: GABAPENTIN 300 MG CAP PO SCH ×3 (08:46→20:26)
[2021-05-02] MEDS: CALCIUM 600MG + VIT D 400 IU TAB PO SCH ×2 (08:47→20:26)
[2021-05-02] MEDS: ATORVASTATIN 10 MG TAB PO SCH (08:47)
[2021-05-02] MEDS: MULTIVITAMIN TAB PO SCH (08:47)
[2021-05-02] MEDS: DOCUSATE SODIUM 100 MG CAP PO SCH ×2 (08:47→20:26)
[2021-05-02] MEDS: PANTOprazole 40 MG TAB PO SCH (08:47)
--- NOTE | 2021-05-02 10:45 | Orthopedic Progress Note ---
Date of Service May 02, 2021 Assessment & Plan (1) Open fracture dislocation of left ankle: Plan: POD 5 s/p I/D and closure over iodiform drains, open fx dislocation left ankle; application ex fix Hyponatremia-sodium 131. Slowly resolving. Hemoglobin 8.6 after transfusion. Patient must maintain elevation and a little bit of internal rotation of the left lower extremity to help combat his swelling. Reinforced this with him. Also discussed with nursing staff. Reinforced today with pillow to left hip to help rotate lower extremity Dressing changed today and pin site care PT/OT protocols. NWB on LLE. DVT prophylaxis - ASA bid, SCD and MARY on the opposite leg Pain management is written. Appreciate hospitalist input. Continue to follow swelling for now/pain control. Admission and Anticipated Discharge Date Admission Date: April 27, 2021 Subjective POD 5 Pt lying in bed awake, alert. Patient continue to have pain mostly to lateral ankle. No other complaints. Physical Exam Physical Exam: left ankle NVI. Dressing changed today. Swelling just to the are of the ex-fix. Ex fix in place. No drainage. No erythema. Results & Data ([facility]) Vital Signs (Past 12 Hours) Vital Signs Temp Pulse Resp BP Pulse Ox 05/02/21 07:36 36.4 C L 67 16 135/83 97 05/01/21 22:57 36.5 C 67 16 118/73 96
[2021-05-02] MEDS: POLYETHYLENE (MIRALAX) 17 GM PACK PO SCH (12:33)
[2021-05-02] MEDS: SENNA 8.6 MG TAB PO SCH (12:33)
[2021-05-02] MEDS: ZOLPIDEM TARTRATE 5 MG TAB PO PRN (22:01)
[2021-05-03] MEDS: cefTRIAXone SODIUM 2,000 MG in DEXTROSE 5% 50 ML IV SCH ×2 (02:16→13:34)
[2021-05-03] MEDS: oxyCODONE HCL IR 5 MG TAB (IMMEDIATE RELEASE) PO PRN ×5 (04:07→21:22)
[2021-05-03] MEDS: LEVOTHYROXINE SODIUM 75 MCG TABLET PO SCH (04:08)
--- NOTE | 2021-05-03 07:32 | Hospitalist Progress Note ---
Date of Service May 03, 2021 Assessment & Plan (1) Hyponatremia: Plan: Improving Serus osm was <280. Urine Na low c/w solute/salt deficiency. Urine Osm was high - this is appropriate concentrating of the urine due to recent volume depletion from blood loss. I suspect that his hyponatremia is chronic as he has had no altered mentation, lethargy, etc despite the low sodium. This is unlikely to be beer potomania given the high urine osm. However, his heavy alcohol consumption is likely contributing to his overall poor diet and poor solute intake. Labs/urine studies are not c/w SIADH from his SSRI use. He does not take diuretics. sodium is improving continue with salt replacement and conservative water intake (2) Hypothyroidism: Plan: TSH is high Increased to 75mcg/day. Repeat TSH in 6 weeks as outpatient. (3) Alcohol dependence: Plan: No signs of etoh withdrawal at this time. Cont folate, MVI, thiamine 200mg BID. He takes gabapentin chronically at home presumably for his neuropathy. (4) Morbid obesity with BMI of 40.0-44.9, adult: Plan: BMI 45 (5) Open fracture dislocation of left ankle: Plan: 04.27.21 orif and laceration repair left ankle by Dr Samaniego. (6) GERD (gastroesophageal reflux disease): Plan: Continue PPI daily (7) Depression: Plan: Continue sertraline daily (8) HLD (hyperlipidemia): Plan: Continue statin daily (9) Acute blood loss anemia: Plan: Significant blood loss from bleeding from his wound and perioperative blood loss. s/p 2 units PRBCs (10) Vitamin D deficiency: Plan: severe. undetectable level. ergocalciferol 00005 units qweekly x 8 weeks. calcium supplementation as well. (11) Hypocalcemia: Plan: 2nd to #11. Rx the low vit D. calcium supplementation as well. (12) Constipation: Plan: dulcolax suppos x 1 now then senna + miralax daily for maintenance no clinical evidence of ileus (no nausea, passing flatus, etc) Plan: DVT proph - per ortho - asa 81mg BID Per the external med rec history he is on ambien + methocarbamol chronically at home - these are being continued. Admission and Anticipated Discharge Date Admission Date: April 27, 2021 Subjective Resting comfortably in bed today. No complaints. pain is appropriate at this time. looking forward to rehab. Review of Systems Review of Systems: Mild distress and fatigue does have some pain to his leg when he moves it no headache, no visual changes no speech or swallowing issues no chest pain, pressure or palpitations no shortness of breath, cough or wheezes no abdominal pain, nausea or vomiting, diarrhea or constipation no dysuria, hematuria or frequency Left leg is in the bandage was external pins is able through the bandage no back pain, CVA tenderness or radicular pain Bruises and discoloration to his arms no focal signs of weakness or numbness or altered sensation no complaints of anxiety or depression.. Physical Exam Physical Exam: The patient appeared well nourished and normally developed. He appears slightly older than his stated age Vital signs as documented. Head exam is normocephalic atraumatic Neck is without JVD, thyromegaly, or carotid bruits. Lungs are clear to auscultation, no focal loss of breath sounds Cardiac exam, Rhythm is regular.. No murmurs, rubs or gallops. Abdominal exam reveals normal bowel sounds, soft non tender, no masses Left extremity has splint and bandage in place he has good warmth to his toes sensation capillary refill and function. Neurologic exam is alert and oriented, x3 Skin is with bruises but no rashes Psychologically is without concerns for anxiety or depression or alcohol withdrawal. Results & Data Results & Data ([facility]) Vital Signs (Past 12 Hours) Vital Signs Temp Pulse Resp BP Pulse Ox 05/03/21 00:03 99.3 F 79 17 134/63 96 PG Care Time/CCT Total # of Minutes Spent Total Time Spent with Patient: Total time spent is greater than 50% in coordination of care (as documented) at patient's floor/unit and/or counseling patient: Coding Level of Care Code 18303 Subseq Hosp Care Lvl 1 Diagnoses Hyponatremia E87.1 Hypothyroidism E03.9 Alcohol dependence F10.20 Morbid obesity with BMI of 40.0-44.9, adult E66.01; Z68.41 Open fracture dislocation of left ankle S82.892B GERD (gastroesophageal reflux disease) K21.9 Depression F32.9 HLD (hyperlipidemia) E78.5 Acute blood loss anemia D62 Vitamin D deficiency E55.9 Hypocalcemia E83.51 Constipation K59.00
[2021-05-03] MEDS: ASPIRIN 81 MG ECTAB PO SCH ×2 (08:13→20:12)
[2021-05-03] MEDS: ATORVASTATIN 10 MG TAB PO SCH (08:14)
[2021-05-03] MEDS: CYANOCOBALAMIN (B-12) 500 MCG TABLET PO SCH (08:14)
[2021-05-03] MEDS: CALCIUM 600MG + VIT D 400 IU TAB PO SCH ×2 (08:14→20:12)
[2021-05-03] MEDS: FOLIC ACID 1 MG TAB PO SCH (08:15)
[2021-05-03] MEDS: DOCUSATE SODIUM 100 MG CAP PO SCH ×2 (08:15→20:12)
[2021-05-03] MEDS: MULTIVITAMIN TAB PO SCH (08:16)
[2021-05-03] MEDS: GABAPENTIN 300 MG CAP PO SCH ×3 (08:16→20:12)
[2021-05-03] MEDS: PANTOprazole 40 MG TAB PO SCH (08:16)
[2021-05-03] MEDS: POLYETHYLENE (MIRALAX) 17 GM PACK PO SCH (08:17)
[2021-05-03] MEDS: FERROUS SULFATE 325 MG TAB PO SCH (08:17)
[2021-05-03] MEDS: SENNA 8.6 MG TAB PO SCH (08:17)
[2021-05-03] MEDS: SERTRALINE HCL 50 MG TABLET PO SCH (08:17)
[2021-05-03] MEDS: METHOCARBAMOL 500 MG TABLET PO SCH ×4 (08:18→20:11)
[2021-05-03] MEDS: SODIUM CHLORIDE 1 GM TABLET PO SCH ×2 (08:18→20:12)
[2021-05-03] MEDS: THIAMINE HCL 100 MG TAB PO SCH ×2 (08:18→20:12)
[2021-05-03] MEDS: HYDROmorphone INJ 0.5 MG/0.5 ML SYR IV PRN (10:23)
--- NOTE | 2021-05-03 10:42 | Orthopedic Progress Note ---
Date of Service May 03, 2021 Assessment & Plan (1) Open fracture dislocation of left ankle: Plan: POD 5 s/p I/D and closure over iodiform drains, open fx dislocation left ankle; application ex fix Hyponatremia-sodium 132. Slowly resolving. Patient must maintain elevation and a little bit of internal rotation of the left lower extremity to help combat his swelling. Reinforced this with him. Also discussed with nursing staff. Reinforced today with pillow to left hip to help rotate lower extremity Dressing changed today and pin site care PT/OT protocols. NWB on LLE. DVT prophylaxis - ASA bid, SCD and MARY on the opposite leg Pain management is written. Appreciate hospitalist input. Continue to follow swelling for now/pain control. Admission and Anticipated Discharge Date Admission Date: April 27, 2021 Subjective Resting comfortably in bed today. No complaints. pain is appropriate at this time. Physical Exam Physical Exam: left ankle NVI. Dressing changed today. Swelling just to the area of the ex-fix, more to lateral aspect. Ex fix in place. Serous drainage. No erythema. Results & Data ([facility]) Vital Signs (Past 12 Hours) Vital Signs Temp Pulse Resp BP Pulse Ox 05/03/21 07:40 36.6 C 72 16 119/68 93 05/03/21 00:03 37.4 C 79 17 134/63 96
[2021-05-03] MEDS: ZOLPIDEM TARTRATE 5 MG TAB PO PRN (21:22)
[2021-05-04] MEDS: oxyCODONE HCL IR 5 MG TAB (IMMEDIATE RELEASE) PO PRN ×4 (02:04→13:46)
[2021-05-04] MEDS: cefTRIAXone SODIUM 2,000 MG in DEXTROSE 5% 50 ML IV SCH ×2 (02:05→13:52)
[2021-05-04] MEDS: LEVOTHYROXINE SODIUM 75 MCG TABLET PO SCH (05:46)
[2021-05-04 06:09] LABS: Hematocrit (blood only) 25.2 % (42-52); Hemoglobin 8.4 g/dL (14.0-18.0); Mean Corpuscular Hemoglobin 31.5 pg (25-34); Mean Corpuscular Hgb Conc 33.3 g/dL (32-36); Mean Corpuscular Volume 94.4 fL (80-100); Mean Platelet Volume 8.3 fL (7.4-10.4); Platelet Count 174 K/uL (130-400); RDW Coefficient of Variation 14.1 % (11.5-14.5); RDW Standard Deviation 48.4 fL (36.4-46.3); Red Blood Count 2.67 M/uL (4.7-6.1)
[2021-05-04 06:33] LABS: BUN Creatinine Ratio 9.9 (10-20); Calcium 7.9 mg/dl (8.5-10.1); Creatinine Clr Calc Pharmacy 140.3 ml/min; Est GFR (African American) 106.5 ml/min; Est GFR (Non-African American) 91.9 ml/min; Potassium 3.7 mmol/L (3.5-5.1)
[2021-05-04 07:37] VITALS: BP 125/73; PULSE 75; TEMP 98.8; O2SAT 96
[2021-05-04] MEDS: HYDROmorphone INJ 0.5 MG/0.5 ML SYR IV PRN (07:46)
[2021-05-04] MEDS: SODIUM CHLORIDE 1 GM TABLET PO SCH (08:27)
[2021-05-04] MEDS: ATORVASTATIN 10 MG TAB PO SCH (08:28)
[2021-05-04] MEDS: CALCIUM 600MG + VIT D 400 IU TAB PO SCH (08:28)
[2021-05-04] MEDS: PANTOprazole 40 MG TAB PO SCH (08:28)
[2021-05-04] MEDS: METHOCARBAMOL 500 MG TABLET PO SCH ×2 (08:28→12:22)
[2021-05-04] MEDS: CYANOCOBALAMIN (B-12) 500 MCG TABLET PO SCH (08:28)
[2021-05-04] MEDS: MULTIVITAMIN TAB PO SCH (08:28)
[2021-05-04] MEDS: SERTRALINE HCL 50 MG TABLET PO SCH (08:28)
[2021-05-04] MEDS: POLYETHYLENE (MIRALAX) 17 GM PACK PO SCH (08:28)
[2021-05-04] MEDS: FOLIC ACID 1 MG TAB PO SCH (08:28)
[2021-05-04] MEDS: GABAPENTIN 300 MG CAP PO SCH ×2 (08:28→13:46)
[2021-05-04] MEDS: FERROUS SULFATE 325 MG TAB PO SCH (08:28)
[2021-05-04] MEDS: DOCUSATE SODIUM 100 MG CAP PO SCH (08:28)
[2021-05-04] MEDS: THIAMINE HCL 100 MG TAB PO SCH (08:28)
[2021-05-04] MEDS: ASPIRIN 81 MG ECTAB PO SCH (08:28)
[2021-05-04] MEDS: SENNA 8.6 MG TAB PO SCH (08:29)
--- NOTE | 2021-05-04 13:26 | Hospitalist Progress Note ---
Date of Service May 04, 2021 Assessment & Plan (1) Hyponatremia: Plan: Improving Serus osm was <280. Urine Na low c/w solute/salt deficiency. Urine Osm was high - this is appropriate concentrating of the urine due to recent volume depletion from blood loss. I suspect that his hyponatremia is chronic as he has had no altered mentation, lethargy, etc despite the low sodium. This is unlikely to be beer potomania given the high urine osm. However, his heavy alcohol consumption is likely contributing to his overall poor diet and poor solute intake. Labs/urine studies are not c/w SIADH from his SSRI use. He does not take diuretics. sodium is improving continue with salt replacement and conservative water intake (2) Hypothyroidism: Plan: TSH is high Increased to 75mcg/day. Repeat TSH in 6 weeks as outpatient. (3) Alcohol dependence: Plan: No signs of etoh withdrawal at this time. Cont folate, MVI, thiamine 200mg BID. He takes gabapentin chronically at home presumably for his neuropathy. (4) Morbid obesity with BMI of 40.0-44.9, adult: Plan: BMI 45 (5) Open fracture dislocation of left ankle: Plan: 04.27.21 orif and laceration repair left ankle by Dr Samaniego. (6) GERD (gastroesophageal reflux disease): Plan: Continue PPI daily (7) Depression: Plan: Continue sertraline daily (8) HLD (hyperlipidemia): Plan: Continue statin daily (9) Acute blood loss anemia: Plan: Significant blood loss from bleeding from his wound and perioperative blood loss. s/p 2 units PRBCs (10) Vitamin D deficiency: Plan: severe. undetectable level. ergocalciferol 84694 units qweekly x 8 weeks. calcium supplementation as well. (11) Hypocalcemia: Plan: 2nd to #11. Rx the low vit D. calcium supplementation as well. (12) Constipation: Plan: dulcolax suppos x 1 now then senna + miralax daily for maintenance no clinical evidence of ileus (no nausea, passing flatus, etc) Plan: DVT proph - per ortho - asa 81mg BID medicine will sign off anticipating transfer Admission and Anticipated Discharge Date Admission Date: April 27, 2021 Subjective Resting comfortably in bed today. No complaints. pain is appropriate at this time. looking forward to rehab. Medicine will sign off Review of Systems Review of Systems: Mild distress and fatigue does have some pain to his leg when he moves it no headache, no visual changes no speech or swallowing issues no chest pain, pressure or palpitations no shortness of breath, cough or wheezes no abdominal pain, nausea or vomiting, diarrhea or constipation no dysuria, hematuria or frequency Left leg is in the bandage was external pins is able through the bandage no back pain, CVA tenderness or radicular pain Bruises and discoloration to his arms no focal signs of weakness or numbness or altered sensation no complaints of anxiety or depression.. Physical Exam Physical Exam: The patient appeared well nourished and normally developed. He appears slightly older than his stated age Vital signs as documented. Head exam is normocephalic atraumatic Neck is without JVD, thyromegaly, or carotid bruits. Lungs are clear to auscultation, no focal loss of breath sounds Cardiac exam, Rhythm is regular.. No murmurs, rubs or gallops. Abdominal exam reveals normal bowel sounds, soft non tender, no masses Left extremity has splint and bandage in place he has good warmth to his toes sensation capillary refill and function. Neurologic exam is alert and oriented, x3 Skin is with bruises but no rashes Psychologically is without concerns for anxiety or depression or alcohol withdrawal. Results & Data Results & Data ([facility]) Vital Signs (Past 12 Hours) Vital Signs Temp Pulse Resp BP Pulse Ox 05/04/21 07:36 98.8 F 75 18 125/73 96 PG Care Time/CCT Total # of Minutes Spent Total Time Spent with Patient: Total time spent is greater than 50% in coordination of care (as documented) at patient's floor/unit and/or counseling patient: Coding Level of Care Code 86323 Subseq Hosp Care Lvl 1 Diagnoses Hyponatremia E87.1 Hypothyroidism E03.9 Alcohol dependence F10.20 Morbid obesity with BMI of 40.0-44.9, adult E66.01; Z68.41 Open fracture dislocation of left ankle S82.892B GERD (gastroesophageal reflux disease) K21.9 Depression F32.9 HLD (hyperlipidemia) E78.5 Acute blood loss anemia D62 Vitamin D deficiency E55.9 Hypocalcemia E83.51 Constipation K59.00
--- NOTE | 2021-05-04 15:08 | Orthopedic Progress Note ---
Date of Service May 04, 2021 Assessment & Plan (1) Open fracture dislocation of left ankle: Plan: POD 7 s/p 1. Irrigation and debridement, complex laceration, 22 x 8 cm with loose primary closure. 2. Left open reduction, application of Synthes large external fixation, grade II open bimalleolar ankle fracture dislocation. 3. Irrigation and debridement, grade II open fracture dislocation of the ankle with complex laceration including skin, dermis, fascia, tibialis anterior muscle, tendon and medial deltoid ligament. Dressing changed today and pin site care PT/OT protocols. NWB on LLE. DVT prophylaxis - ASA bid, SCD and MARY on the opposite leg Pain management is written. Appreciate hospitalist input. D/C planning--to [facility] swing bed today. Will follow up with Dr. Samaniego's clinic in the next 4-7 days for x-rays and re-evaluation for ORIF. Admission and Anticipated Discharge Date Admission Date: April 27, 2021 Subjective Patient states he is doing well. Pain is controlled today. No new complaints. A swing bed is ready for him at [facility]. Physical Exam Constitutional: WD/WN, vitals as above no acute distress Neck: trachea midline Musculoskeletal: Ankle: + ankle abnormal to inspection (right ankle ex fix in place. Well aligned ankle. No erythema.), + surgical incision (mild serosanguinous drainage from the repaired laceration. No purulence.) and + joint line tenderness (ankle) (Generalized ankle tenderness); no skin erythema and no ecchymosis Neurologic: normal touch/pain/proprioception Psychiatric: A+Ox3, euthymic affect Speech: normal rate/rhythm/volume of speech Results & Data ([facility]) Vital Signs (Past 12 Hours) Vital Signs Temp Pulse Pulse Resp BP Pulse Ox 05/04/21 14:03 37.1 C 75 63 18 125/73 96 05/04/21 07:36 37.1 C 75 18 125/73 96
--- NOTE | 2021-05-07 12:34 | Discharge Summary ---
Date of Service May 07, 2021 Admission HPI Per Admitting Provider Patient is a 60-year-old white male who was getting out of his car to take his recycling to the recycling center. Patient states that he ended up slipping on the ice of which she did not see and he fell down twisting his ankle and putting most of his weight on that ankle. He had immediate pain and bleeding noted of the left ankle and he noted the foot and ankle were deformed position. He was obviously not able to ambulate and he was brought to the emergency room. He was seen by the staff, x-rays were taken and was found that he had a fracture dislocation of his left ankle. Per nursing staff, patient had some brisk bleeding however they were able to get the bleeding under control. They dressed the wounds and put the patient in a small posterior splint. We have been asked to take care of this gentleman. Admission Exam Per Admitting Provider Physical Exam Constitutional: WD/WN, vitals as above Eyes: Patient has some mild scleral injection ENMT: external ear and nose normal, oropharynx normal Neck: trachea midline, no thyromegaly Respiratory: normal respiratory effort, lungs clear to auscultation Cardiovascular: RRR, no murmur, no edema Gastrointestinal (Abdomen): normal bowel sounds, soft, nontender, no hepatosplenomegaly Obese Musculoskeletal: On examination of his left lower extremity, the patient has a small posterior splint and Jay wrap applied to the left foot and ankle. His toes are pink and warm at this time and he is able to move his toes. Sensation is intact. Capillary refill is sluggish. No other injuries or complaints of the left lower extremity. Right lower extremity is unaffected as are the upper extremities. Range of motion within normal limits. Left foot with dorsalis pedis not obtained secondary to bulky dressing applied. Right dorsalis pedis intact 2/4. Upper extremities 2/4 bilaterally. There is no gross motor or sensory loss seen at this time. Per patient pictures, he has a grade 2 open fx dislocation of the left ankle. Principal Diagnosis Grade 2 open fracture dislocation left ankle Discharge Data Allergies Allergy/AdvReac Type Severity Reaction Status Date / Time egg Allergy Severe Anaphylaxis Unverified 05/01/21 09:00 peanut Allergy Severe Anaphylaxis Unverified 05/01/21 09:00 Consultations 04/27/21 16:27 ED Decision to Admit Stat 04/29/21 07:34 Consult Hospitalist Routine Procedures Performed Operation Date: 04/27/21 14:40 Actual Procedures s Irrigation and Debridement Complex Laceration 22cm x 8cm, (Left) - Sina Samaniego DO p Left Open Reduction External Fixation Ankle Fracture Dislocation(Left) - Sina Samaniego DO Ordered Studies 04/27/21 16:33 FL ankle LT 2V Routine 04/27/21 17:39 US - OR guided needle placemen Routine Hospital Course (1) Open fracture dislocation of left ankle: Patient was admitted on the above-noted date with the above noted injury. Patient was noted to have continued likely venous bleeding from the wound upon arriving to the emergency room which was controlled by the ER staff. Patient was placed in a splint for stabilization and dressings were placed over the wound. The patient was then taken to the operating room by Dr. Samaniego and underwent irrigation and debridement with application of external fixator and c losure of open skin wound. Patient was started on IV antibiotics postoperatively.On his first postoperative day, he was sitting up in his chair at the bedside after going through a physical therapy session. He was having some pain but was otherwise comfortable patient stated he had not urinated at that time since the previous evening and he was continued on IV fluids. It was also noted that he had low sodium of 128. Patient was remaining asymptomatic and this was discussed with the hospitalist service. They were eventually consulted the following day to see the patient for his hyponatremia. His dressings were changed and he had noted serous drainage over a good portion of the lower dressing. Any iodoform packing that was placed in wounds was removed. Wound was benign. External fixator pin sites were benign. Patient had a good dorsalis pedis pulse. Cap refill is less than 2 seconds. Mild tingling sensation in his toes of which he had prior to surgery. Hospitalist service was then consulted for hyponatremia of which patient was seen by Dr. Garcia. They continue to follow the patient during his stay. By his second postoperative day he was appearing comfortable but was having a little bit more aching in the left ankle. It was noted that his hemoglobin dropped down to 7.5 and he had stated he was somewhat lightheaded with ambulation the previous day. Dressings were c hanged and his wounds remained benign. He was having a small amount of orange serous drainage from the wound itself. He had less edema in the forefoot and less erythema. He was noted having some increased swelling over the lateral aspect of the ankle. Plans were to continue elevation on 3-4 pillows to help with his edema. In discussing his blood loss, patient states he had moderate blood loss at the site of his injury. He was also noted to have some blood loss noted in the emergency room. Vital signs continued remained stable and he was afebrile. By his third postoperative day hemoglobin had dropped down to 7.2 and he was transfused 2 units PRBCs. Sodium was noted to be 130. His dressings were changed and his wound continued to remain benign. He continued to have increased swelling over the lateral aspect of the ankle and the swelling was getting close to one of the anchors on the external fixator device. Further modifications to his elevation in bed were taken. By postop before, it was noted that the swelling of his lateral ankle had reached to the external fixator anchor and was just slightly touching. There was no skin breakdown and there was no pressure noted at this time being applied at the skin. His wounds continue to remain essentially benign and his hemoglobin had come up to 8.6 posttransfusion patient was continued to feel well. He had some pain in the lateral malleolar area but was otherwise controlled with pain medications. Dr. Samaniego wanted to continue his elevation and follow his swelling of the lateral ankle to make sure it was not going to worsen and any further adjustments were going to need to be done to the external fixator. The rest of the patient stay was essentially uneventful. He continued to remain stable over the following few days and by 05/04/2021, he is remaining medically stable as well as orthopedically stable. Hemoglobin was fluctuating between 8 and 9 and his sodium had come up to 134. Wounds continue to remain benign and it was felt that he could be transferred to [facility] swing bed for further care. Total Time Total Time Spent Total Time Spent (In Minutes): 20 Discharge Plan Discharge Items Patient Disposition: Transfer Inpatient Rehab Fac Reason For Visit: Open fracture dislocation left ankle Discharge Diagnosis: Open Fracture dislocation left ankle Activity: Per Instructions section Weightbearing: Left non-weightbearing Weightbearing Comment: Use walker/wheelchair Non-emergency contact: Surgeon Call non-emergency contact if: your pain is not controlled, your temperature is above 101.5, your wound has increased redness and your wound has increased drainage Follow-up/Referrals: Sina Samaniego DO [Surgeon] - (follow up in 10-14 days from the day of surgery. ) Harrison Mcneil MD [Primary Care Provider] - Diet: Regular Addtl Attending Provider Instructions: ACTIVITY RECOMMENDATIONS: * You are NONWEIGHTBEARING on your left foot at this time. SPECIAL CARE INSTRUCTIONS: * STRICT ELEVATION WHEN AT REST. KEEP LLE ELEVATED ON AT LEAST 3 OR 4 PILLOWS WITH TOES POINTING UP. (No external rotation if possible) * Some drainage onto the dressing is normal and is no cause for alarm. * Some swelling is natural especially after walking. When resting, keep your foot elevated above the level of your heart. * Call the doctor's office at if you notice increased drainage, fever over 101 degrees F. or severe constant pain. BANDAGE: * Daily pin care with Hydrogen peroxide and sterile water (03/08 and 03/08). Change dressing daily. As your wounds have less drainage, you may change every other day. Watch for signs of increased redness, drainage, swelling, or temperature of 101.5. Please call the office if this occurs. * Keep bandage/cast dry at all times. PIN CARE: * As noted above * If pins come loose or fall out, notify physician. FOLLOW UP VISIT: Please call [facility] to make a follow-up appointment 10-14 days from the day of your surgery at . Pending Studies at Discharge: No Stand-Alone Forms: [facility] Skilled Items Patient informed of condition?: Yes DNR: No Discharge Level of Care: Acute rehab Communicable Disease: No Discharge Prognosis: Stable Lines: None Urinary Catheter: No Medications and DC Order Prescriptions: New aspirin 81 mg Tablet,Delayed Release (Dr/Ec) 81 mg PO BID Qty: 60 RF: 0 oxycodone 5 mg Tablet 5 mg PO Q4H PRN (Reason: pain) Qty: 20 RF: 0 acetaminophen [Tylenol Extra Strength] 500 mg tablet 1,000 mg PO Q8H Qty: 100 RF: 0 Continued atorvastatin 10 mg tablet 10 mg PO QAM RF: 0 pantoprazole 20 mg tablet,delayed release (DR/EC) 20 mg PO QAM RF: 0 levothyroxine 50 mcg tablet 50 mcg PO QAM RF: 0 ferrous sulfate 325 mg (65 mg iron) tablet 352 mg PO QAM RF: 0 gabapentin 300 mg capsule 600 mg PO TID RF: 0 folic acid 1 mg tablet 1 mg PO QAM RF: 0 zolpidem [Ambien] 5 mg Tablet 5 mg PO HS PRN (Reason: Insomnia) RF: 0 sertraline 50 mg tablet 50 mg PO QAM RF: 0 doxycycline hyclate 100 mg capsule 100 mg PO BID RF: 0 methocarbamol 500 mg tablet 1,000 mg PO QID RF: 0 benzonatate 100 mg capsule 100 mg PO Q8 PRN (Reason: Cough) RF: 0 Discontinued acetaminophen [Tylenol Extra Strength] 500 mg Tablet 1,000 mg PO Q6H PRN (Reason: Pain) RF: 0 oxycodone 5 mg Tablet 5 mg PO BID PRN (Reason: Pain) RF: 0 Discharge Orders: Discharge Order (Routine); Ordered 05/04/21 Ordered By: Naeem Collier Admission Data Admit Date/Time: 04/27/21 20:19 Attending Provider: Sina Samaniego Admit Provider: Sina Samaniego Primary Care Provider: Harrison Mcneil Other Providers: [facility] ; [facility] ; Deni Ochoa Other Interventions: Discharge Summary Assessment (RN) Last Done: 05/04/21 14:03
== END 2021-05-04 15:20 | DRG 493 ==
LOC: ED 15:10 → 3E 16:47
DX: E87.1 Hypo-osmolality and hyponatremia; Z68.41 Body mass index [BMI] 40.0-44.9, adult; K21.9 Gastro-esophageal reflux disease without esophagitis; S93.422A Sprain of deltoid ligament of left ankle, initial encounter; I10 Essential (primary) hypertension; Z79.890 Hormone replacement therapy; D62 Acute posthemorrhagic anemia; E03.9 Hypothyroidism, unspecified; F10.20 Alcohol dependence, uncomplicated; G62.9 Polyneuropathy, unspecified; S93.02XA Subluxation of left ankle joint, initial encounter; K59.00 Constipation, unspecified; S82.842B Displaced bimalleolar fracture of left lower leg, initial encounter for open fracture type I or II; E78.5 Hyperlipidemia, unspecified; Z79.899 Other long term (current) drug therapy; Z91.012 Allergy to eggs; E66.01 Morbid (severe) obesity due to excess calories; E83.51 Hypocalcemia; Z91.010 Allergy to peanuts; W00.0XXA Fall on same level due to ice and snow, initial encounter; S91.012A Laceration without foreign body, left ankle, initial encounter; E55.9 Vitamin D deficiency, unspecified